=== PATIENT | female | born 1965 | race Caucasian/White ===

== ENCOUNTER 2018-10-06 08:40 | Inpatient (IN) | payer BC ==
[~2018-10-06] VITALS: Ht 157.5 cm; Wt 59.0 kg
[2018-10-06] MEDS ORDERED: POLYETHYLENE GLYCOL 17 GM (MIRALAX) PACK PO PRN (12:15)
[2018-10-06] MEDS ORDERED: CALCIUM CARBONATE 500 MG (TUMS) TAB.CHEW PO PRN (12:15)
[2018-10-06] MEDS ORDERED: ACETAMINOPHEN 500 MG TAB (TYLENOL) PO PRN (12:15)
[2018-10-06] MEDS ORDERED: LOPERAMIDE 2 MG (IMODIUM) CAP PO PRN (12:15)
[2018-10-06] MEDS ORDERED: DOCUSATE SODIUM 100 MG (COLACE) CAP PO PRN (12:15)
[2018-10-06] MEDS ORDERED: MELATONIN 3 MG TABLET PO PRN (12:15)
[2018-10-06 17:29] VITALS: BP 136/89
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
[2018-10-06] MEDS: POLYETHYLENE GLYCOL 17 GM (MIRALAX) PACK PO SCH (20:15)
[2018-10-06] MEDS: SENNA W/DOCUSATE (SENOKOT S) TABLET PO SCH (20:15)
[2018-10-06] MEDS: METHOCARBAMOL 750 MG (ROBAXIN) TAB PO SCH (20:15)
[2018-10-06] MEDS: diphenhydrAMINE 25 MG TAB (BENADRYL) PO PRN (21:21)
[2018-10-07] MEDS: oxyCODONE/APAP 5/325MG (PERCOCET 5) TABLET PO PRN ×3 (01:05→20:33)
[2018-10-07] MEDS: ONDANSETRON 4 MG (ZOFRAN) ORAL DISSOLVE TAB PO PRN ×2 (01:25→12:01)
[2018-10-07 05:08] VITALS: BP 125/82
[2018-10-07] MEDS ORDERED: FLU QUADRIvalent (5+ YOA) 2018-2019 (AFLURIA) 0.5 ML IM ONE (07:00)
--- NOTE | 2018-10-07 08:21 | Physical Therapy Progress Note ---
Therapy Progress Note Pt arrived 10/06/18 via EMS. PT/OT/ST eval to be completed 10/07/18. CHRIS PROCTOR PT Oct 07, 2018 08:21
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
[2018-10-07] MEDS: METHOCARBAMOL 750 MG (ROBAXIN) TAB PO SCH ×3 (09:22→20:32)
[2018-10-07] MEDS: SENNA W/DOCUSATE (SENOKOT S) TABLET PO SCH ×2 (09:22→20:32)
[2018-10-07] MEDS: ENOXAPARIN 40 MG/0.4 ML (LOVENOX) SYR SC SCH (09:23)
[2018-10-07] MEDS: LORATADINE (CLARITIN) 10 MG TAB PO SCH (09:23)
--- NOTE | 2018-10-07 10:40 | PM&R Progress Note ---
Subjective This was a face to face visit with the patient. Date Seen by Provider: Oct 07, 2018 Time Seen by Provider: 08:30 Subjective/Events-last exam Patient was seen in her room. Patient reports the pain is controlled Bowel regimen is maintained Eating and drinking well Very difficult to move about in a wheelchair with nonweightbearing on the left Review of Systems Gastrointestinal: Constipation Musculoskeletal: leg pain Objective Physician Exam Last Set of Vital Signs Vital Signs Date Time Temp Pulse Resp B/P (MAP) Pulse Ox O2 Delivery O2 Flow Rate FiO2 10/07/18 05:08 98.0 98 18 125/82 (96) 98 Room Air Capillary Refill : Less Than 3 Seconds I&O Intake and Output 10/07/18 00:00 Intake Total 300 ml Output Total 500 ml Balance -200 ml Intake Oral 300 ml Output Urine Total 500 ml Daily Weight Change Unsure General: Alert, Oriented X3, Cooperative, No Acute Distress HEENT: Atraumatic, PERRLA Neck: Supple, No JVD, No Thyromegaly, +2 Carotid Pulse No Bruit, No LAD Lungs: Clear to Auscultation, Normal Air Movement Heart: Regular Rate, Normal S1, Normal S2, No Murmurs Abdomen: Normal Bowel Sounds, Soft, No Tenderness, No Hepatosplenomegaly, No Masses Extremities: No Clubbing, No Cyanosis, No Edema, Normal Pulses, No Tenderness/ Swelling Skin: No Rashes, No Breakdown, No Significant Lesion Neuro: Other (left foot dressing and brace intact and same for right knee) Psych/Mental Status: Mental Status NL, Mood NL Current Funtional Status Continue therapies to help independent ADLs when discharged home Await for dressing changes per orthopedic surgery on Wednesday Maintain bowel regimen DVT prophylaxis Pain control Monitor closely Check labs in am Assessment/Plan Assessment and Plan Assessment: Left calcaneal fracture and non-weight bearing on left leg with right patellar fracture Smoker Brittle bones per patient Constipation Plan: Pain meds Lovenox for DVT px BM regimen Check labs in am (1) Left calcaneal fracture Qualifiers: Status: Acute (2) Brittle bone disease Status: Chronic (3) Patella fracture Qualifiers: Status: Acute (4) Constipation Qualifiers: Qualified Codes: K59.01 - Slow transit constipation Status: Acute Co-Morbidities that are continuing to impact the rehab process: (include details ) JOSEPH AKINS DO Oct 07, 2018 10:40
--- NOTE | 2018-10-07 10:50 | NUR ---
Pastoral care visit.
--- NOTE | 2018-10-07 12:57 | Occupational Therapy Eval ---
OT Evaluation-General/PLF Medical Diagnosis Admission Date Oct 06, 2018 at 17:30 Medical Diagnosis: L calcaneal fx, R patella fx Onset Date: Sep 29, 2018 Therapy Diagnosis Therapy Diagnosis: impaired self care skills Height/Weight Height (Feet): 5 Height (Inches): 2.00 Weight (Pounds): 137 Weight (Ounces): 5.0 Precautions Precautions/Isolations: Fall Prevention, Standard Precautions Safety Interventions: None Comments Right knee brace locked in extension Weight Bear Status Weight Bearing Restriction: Non Weight Bearing Location Restriction: L LE Referral Physician: Olga Medical History Pertinent Medical History: Arthritis, Smoking (Occassional) Additional Medical History back pain, irregular heart beat, osteoporosis, Current History Pt had fall resulting in right patellar fracture and left calcaneal fracture. Pt has right knee brace locked into extension. NWB left LE. Social History Home: Single Level Current Living Status: Significant Other Entry Into Home: Stairs With Railing Steps Into Home: 2 ADL-Prior Level of Function Therapy Code Descriptions/Definitions Functional [place] Measure: 0=Not Assessed/NA 4=Minimal Assistance 1=Total Assistance 5=Supervision or Setup 2=Maximal Assistance 6=Modified [place] 3=Moderate Assistance 7=Complete [place] Therapy Quality Codes: 6 Independent with activity with or without an assistive device 5 Patient requires set up or clean up by helper. Patient completes activity by themselves 4 Supervision or touching assist (CGA). [place] provide cues , steadying assist 3 The helper provides less than half the effort to complete the activity 2 The helper provides more than half the effort to complete the activity 1 Dependent. The helper does all the effort to complete an activity 7 Patient refused to complete or attempt activity 9 The patient did not perform the activity before the current illness or injury 88 Not attempted due to Medical conditions or safety concerns Functional Abilities and Goals: Independent: Patient completed the activities by him/herself, with or without an assistive device, with no assistance from a helper. Needed Some Help: Patient needed partial assistance from another person to complete activities. Dependent: A helper completed the activities for the patient. Unknown: Not Applicable: Self Care: Independent Functional Cognition: Independent DME/Equipment: Tub/Shower Occupation: Works in a school kitchen Drive Self: Yes OT Current Status Subjective Pt sitting in w/c, agrees to therapy. Pt reports 8.5/10 pain in right knee. Mental Status/Objective Patient Orientation: Person, Place, Situation Attachments: Knee Immobilizer Current Glasses/Contacts: Yes Hearing Aids: No Dentures/Partials: No Hand Dominance: Right Upper Extremity ROM grossly WFL Upper Extremity Coordination intact Upper Extremity Sensation intact per pt report ADL-Treatment ADL-Current Pt participated in UE assessment while seated in w/c. Pt agreed to sponge bath. Pt doffed shirt with SBA. Upper body bathing completed with set up. Pt required total assist to doff pants. Pt able to wash tanesha area and bilateral upper legs. Assist required to wash lower legs and buttocks. Pt required assist to thread bilateral LE into pant legs. Pt used grab bar, but was unable to come to full standing position. Total assist to pull pants up over hips. Dependent to doff/ don right sock. Pt reports pain with activity and requires rest breaks secondary to fatigue and pain. Pt sitting in w/c with needs met after session. Eating (FIM): 5 Eating (QC): 5 Grooming (FIM): 5 Bathing (FIM): 3 Shower/Bathe Self (QC): 3 Upper Body Dressing (FIM): 5 Upper Body Dressing (QC): 5 Lower Body Dressing (FIM): 1 Lower Body Dressing (QC): 1 On/Off Footwear (QC): 1 Toilet/Commode Transfer (FIM): 3 (Per PT report) Education OT Patient Education: Rehab process Teaching Recipient: Patient Teaching Methods: Discussion Response to Teaching: Verbalize Understanding OT Short Term Goals Short Term Goals Time Frame: Oct 14, 2018 Bathing(FIM): 4 Lower Body Dressing(FIM): 3 Toileting(FIM): 3 Toilet/Commode Transfer(FIM): 4 Additional Short Term Goals: 1-Demonstrate ADL Tasks, 2-Verbalize Understanding , 3-ImproveStrength/Hafsa 1=Demonstrate adherence to instructed precautions during ADL tasks. 2=Patient will verbalize/demonstrate understanding of assistive devices/ modifications for ADL. 3=Patient will improve strength/tolerance for activity to enable patient to perform ADL's. OT Music Researcher Goals Music Researcher Goals Time Frame: Oct 28, 2018 Eating (FIM): 7 Eating (QC): 6 Groomin Oral Hygiene (QC): 6 Bathing(FIM): 5 Shower/Bathe Self (QC): 4 Upper Body Dressing(FIM): 6 Upper Body Dressing (QC): 6 Lower Body Dressing(FIM): 5 Lower Body Dressing (QC): 4 On/Off Footwear (QC): 5 Toileting(FIM): 5 Toileting Hygiene (QC): 5 Toilet/Commode Transfer(FIM): 5 Toilet/Commode Transfer (QC): 5 Additional Goals: 1-Demonstrate ADL Tasks, 2-Verbalize Understanding, 3- ImproveStrength/Hafsa 1=Demonstrate adherence to instructed precautions during ADL tasks. 2=Patient will verbalize/demonstrate understanding of assistive devices/ modifications for ADL. 3=Patient will improve strength/tolerance for activity to enable patient to perform ADL's. OT Education/Plan Problem List/Assessment Assessment: Decreased Activ Tolerance, Decreased UE Strength, Dependent Transfers, Impaired Funct Balance, Impaired I ADL's, Impaired Self-Care Skills Pt admitted after acute hospitalization for left calcaneal fracture and right patellar fracture. Pt demonstrates impaired ADL functioning, mobility, strength , and activity tolerance. Pt to benefit from skilled OT intervention for ADL training, transfers, strengthening, adaptive equipment training, and home safety education to increase independence and allow safe discharge plan. Discharge Recommendations Plan/Recommendations: Continue POC Treatment Plan/Plan of Care Patient would benefit from OT for education, treatment and training to promote independence in ADL's, mobility, safety and/or upper extremity function for ADL' s. Treatment Duration: Oct 28, 2018 Frequency: At least 5 of 7 days/Wk (IRF) Estimated Hrs Per Day: 1.5 hours per day Rehab Potential: Guarded Time/GCodes Start Time: 09:00 Stop Time: 10:00 Total Time Billed (hr/min): 60 Billed Treatment Time 1 visit, EVM(15minutes), ADLx3(45minutes) NIC VERAS OT Oct 07, 2018 12:57
--- NOTE | 2018-10-07 13:11 | NUR ---
Initial Assessment Visited with patient regarding the inpatient rehab program. The patient reports she currently lives with her boyfriend and his family in [place], [place]. She reports there is a step onto the porch and then a step into the house. She reports she has access to a wheelchair if needed. She utilizes [facility] in [place] for prescriptions. 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 She states she will try her hardest and appears motivated and willing to participate with therapies. Her discharge goal is to return home with her boyfriend and his family.
[2018-10-07] MEDS ORDERED: DIPH25TA65 PO (13:34)
[2018-10-07] MEDS ORDERED: OXYC1TAB87 PO (13:34)
--- NOTE | 2018-10-07 13:35 | NUR ---
UPDATED THE MED REC TO THE LIST OF MEDICATIONS THE PATIENT WAS TAKING UPON ADMISSION TO USING THE DISCHARGE PAPERWORK FROM . NOTE THE FOLLOWING CHANGES WERE MADE WHEN THE PATIENT DISCHARGED TO [facility]IA [facility] [place] THAT ARE NOT CURRENTLY REFLECTED ON THE HOME MED REC: START TAKING: LOVENOX 40MG 0.4ML SUBQ DAILY X 14 DAYS LORATADINE 10MG DAILY METHOCARBAMOL 750MG TID MIRALAX 17GM DAILY SENNA 8.6MG BID CHANGE HOW YOU TAKE: PERCOCET 5-325MG INCREASED TO 1-2 TABS Q 4-6H PRN (PREVIOUSLY FILLED 1 Q4H PRN) I CALLED [facility] IN [place] TO VERIFY THEY HAVE NOT FILLED ANY OTHER MEDICATIONS. SHE LAST FILLED PERCOCET 5-325 #25 ON 08-16-18. THEY HAVE NOT FILLED ANY OTHER MEDICATION FOR HER. I PUT THE BENADRYL OTC PRN ON THE MED REC THAT WAS CONTINUED UPON DISCHARGE FROM .
--- NOTE | 2018-10-07 14:00 | NUR ---
DISCUSSED WITH BM WITH PATIENT. SHE AGREED THAT SHE HAS NOT HAD BM SINCE 10/03/18 AND THAT SHE IS PASSING GAS. SHE STATES THAT IT IS NOT UNUSUAL FOR HER TO GO "A FEW DAYS" BETWEEN BMs AND AT THIS POINT SHE IS NOT CONCERNED. INFORMED HER THAT SHE HAS PRN STOOL SOFTENERS THAT SHE CAN REQUEST IN ADDITION TO HER SCHEDULED STOOL SOFTENERS. WILL CONTINUE TO MONITOR.
--- NOTE | 2018-10-07 14:17 | ST Cognitive Linguistic Eval ---
Speech Evaluation-General Medical Diagnosis L calcaneal fx, R patella fx Onset Date: Sep 29, 2018 Therapy Diagnosis Therapy Diagnosis: Cognitive-communication Precautions Precautions/Isolations: Fall Prevention, Standard Precautions Medical History Pertinent Medical History: Arthritis, Smoking (Occassional) Reviewed History: Yes Social History Current Living Status: Significant Other Speech PLF-Current Status Prior Level of Function Patient lived at home with her and was independent for her daily needs. Patient had just returned to work s/p recovery of a broken wrist. Subjective Patient was pleasant and attentive during the evaluation process. Language Eval: Auditory Comprehends Simple Yes/No Ques: Functional Indent/Objects Multiple Francis: Functional Ident/Pics in Multiple Francis: Functional Follows 1-Step Commands: Functional Follows Complex Directions: Functional Follows General Conversations: Functional Language Eval: Verbal Language Completes Spontaneous Greeting: Functional Produces Auto, Serial Info: Functional Imitates Simple Words/Phrases: Functional Word Finding: Functional Requests Basic Needs: Functional States Basic Personal Info: Functional Expresses Complex Ideas: Functional Objective Cognitive Domain Attention: WNL Memory: WNL Problem Solving: Functional Executive Functions: [facility] Objective Formal/Standardized Tests [facility] Cognitive/Communication Results Memory: Immediate 3/3, Delayed 3/3, Orientation: 5/5, Problem Solving: Simple 5/ 5, Complex 4/5, Auditory Processin/5 Oral Motor/Speech Production Within Functional Limits Impression Patient is a pleasant 52 year old female. Patient is a good historian of her recent fall and previous one which resulted in a broken wrist, Patient did become emotional when recalling her son's recent illnesses. Patient meets all normal range for cognitive-communication testing. Communication/Social Cognition Comprehension: 7 Expression: 7 Social Interaction: 7 Problem Solvin Memory: 7 Speech Patient Assess Expression of Ideas/Wants: Expression (4) Understanding Verbal Content: Understands (4) Brief Interview-Mental Status: Yes Repetition of Three Words: Three (3) Temporal Orientation: Year: Correct (3) Temporal Orientation: Month: Accurate within 5 days(2) Temporal Orientation: Day: Correct (1) Recall : Wear to say "Sock": Yes, no cue required (2) Recall : Color: Yes, no cue required (2) Recall : Bed: Yes, no cue required (2) Memory/Recall Ability: Current season, That he or she is in a hsp/hsp unit Speech-Plan Patient/Family Goals Patient/Family Goals: Patient plans to return home post rehab with her family. Treatment Plan Speech Therapy Treatment Plan: Discontinue ST, Goals Met Patient does not require skilled ST services at this time. Treatment Duration: Oct 07, 2018 Frequency: 1 time per week Estimated Hrs Per Day: .5 hour per day Rehab Potential: Guarded Barriers to Learning: Patient has a lot of pain. Pt/Family Agrees to Plan: Yes Safety Risks/Education Teaching Recipient: Patient Teaching Methods: Discussion Response to Teaching: Verbalize Understanding Education Topics Provided: Safety within her room. Time Speech Therapy Time In: 10:00 Speech Therapy Time Out: 10:15 Total Billed Time: 15 Billed Treatment Time 1, SPSNDCOMP IRMA Salcedo Oct 07, 2018 14:17
--- NOTE | 2018-10-07 14:59 | Therapy Group Daily Note ---
Therapy Daily Group Note Patient Education Topic Other List Below (memeory) Exercises LE Seated Exercise, UE Exercise Other/Notes Pt participated in group therapy with 4 to 1 ratio. Goals of session: Pt will verbalize understanding of memory strategies (met). Lead one UE or LE seated exercise during group therapy (met). Pt transported via w/c to [facility] for OT/PT group. Group consisted on introductions (name, place living, what would you name a cheetah), socialization , pt led UE/LE seated exercises, memory education/strategies and memory activity. Pt introduced self appropriately and actively listened to peers. Pt acknowledged understanding of memory strategies/education by verbalizing personal strategies. Pt was able to lead one exercise without difficulty then complete rest of exercises. During memory activity pt was able to match pictures on turn. Pt will benefit from group by increasing short term memory and use strategies during daily functional tasks. Pt will be able to complete UE/LE seated exercises after discharge. After group, pt transported via w/c back to room and laid in bed. Call light/phone in reach. All needs met in room. Start Time: 13:00 Stop Time: 14:15 Total Billed Treatment Time: 75 Total Billed Treatment 1-GRP CHRIS TRINIDAD Oct 07, 2018 14:59
--- NOTE | 2018-10-07 16:30 | NUR ---
DR. AKINS TO FLOOR AND DISCUSSED PATIENT'S DRESSINGS ON BILAT LOWER EXTREM. [facility] TO BE CONTACTED ON WEDNESDAY FOR INSTRUCTION.
[2018-10-07] MEDS: diphenhydrAMINE 25 MG TAB (BENADRYL) PO PRN (17:33)
[2018-10-07 18:42] VITALS: BP 125/79
[2018-10-07] MEDS: POLYETHYLENE GLYCOL 17 GM (MIRALAX) PACK PO SCH (20:32)
[2018-10-08 05:57] LABS: BASOPHILS % (AUTO) 1 % (0-10); EOSINOPHILS # (AUTO) 0.2 10^3/uL (0.0-0.3); EOSINOPHILS % (AUTO) 3 % (0-10); HEMATOCRIT 37 % (35-52); HEMOGLOBIN 11.7 G/DL (11.5-16.0); LYMPHOCYTES # (AUTO) 1.6 X 10^3 (1.0-4.0); LYMPHOCYTES % (AUTO) 29 % (12-44); MEAN CORPUSCULAR HEMOGLOBIN 31 PG (25-34); MEAN CORPUSCULAR HGB CONC 32 G/DL (32-36); MEAN CORPUSCULAR VOLUME 95 FL (80-99); MEAN PLATELET VOLUME 11.8 FL (7.4-10.4); MONOCYTES # (AUTO) 0.9 X 10^3 (0.0-1.0); MONOCYTES % (AUTO) 15 % (0-12); NEUTROPHILS % (AUTO) 53 % (42-75); PLATELET COUNT 273 10^3/uL (130-400); RED CELL DISTRIBUTION WIDTH 12.9 % (10.0-14.5); WHITE BLOOD COUNT 5.7 10^3/uL (4.3-11.0)
[2018-10-08 06:00] VITALS: BP 126/80
[2018-10-08 06:12] LABS: ALANINE AMINOTRANSFERASE < 6 U/L (0-55); ALBUMIN 3.4 GM/DL (3.2-4.5); ALKALINE PHOSPHATASE 64 U/L (40-136); BILIRUBIN,TOTAL 0.4 MG/DL (0.1-1.0); BUN/CREATININE RATIO 12; CALCIUM 9.3 MG/DL (8.5-10.1); CARBON DIOXIDE 28 MMOL/L (21-32); CHLORIDE 103 MMOL/L (98-107); CREATININE SERUM 0.86 MG/DL (0.60-1.30); GFR ESTIMATED > 60; GLUCOSE 96 MG/DL (70-105); POTASSIUM 4.1 MMOL/L (3.6-5.0); SODIUM 140 MMOL/L (135-145); TOTAL PROTEIN 6.6 GM/DL (6.4-8.2)
--- NOTE | 2018-10-08 06:58 | Individualized Plan of Care ---
Individualized Plan of Care Rehab Nursing IPOC Order Admission Date Oct 06, 2018 at 17:30 Current Orders Orders Admission Order(Inpt,Obs,Sdc) (10/06/18 12:12) Weight Reducing Technician-Inpt Rehab Con (10/06/18 12:12) Rehab Nursing Orders-Ipoc (10/06/18 12:12) Physical Therapy Rehab Orders (10/06/18 12:12) Occupational Therapy Rehab Ord (10/06/18 12:12) Speech Therapy Rehab Orders (10/06/18 12:12) Intake & Output 06,14,22 (10/06/18 12:12) Daily Weight 06 (10/06/18 12:12) Weekly Weight (Lbs) WEEK (10/06/18 12:12) Rehab-Intensity Of Therapy (10/06/18 12:12) Code/Resuscitation (10/06/18 12:12) Initiate Admission Nursing Pro .admission (10/06/18 12:12) Acetaminophen Tablet (Tylenol Tablet) (10/06/18 12:15) Alprazolam Tablet (Xanax Tablet) (10/06/18 12:15) Calcium Carbonate Chew Tablet (Antacid C (10/06/18 12:15) Diphenhydramine Tablet (Benadryl Tablet) (10/06/18 12:15) Docusate Sodium Capsule (Colace Capsule) (10/06/18 12:15) Hydrocodone/Apap 5/325 Tablet (Lortab 5 (10/06/18 12:15) Loperamide Capsule (Imodium Capsule) (10/06/18 12:15) Melatonin Tablet (Melatonin Tablet) (10/06/18 12:15) Polyethylene Glycol Powder Pkt (Miralax (10/06/18 12:15) Ondansetron Oral Dissolve Tab (Zofran (10/06/18 12:15) Admission Arrival Bed Request (10/06/18 17:30) General/Regular (10/06/18 Dinner) Ambulate 08,12,20 (10/06/18 18:44) Sequential Compression Device 08,20 (10/06/18 18:44) Dvt/Vte Risk - Notifiy Physici 08 (10/06/18 18:44) Request Ot Evaluate & Treat (10/06/18 18:51) Loratadine Tablet (Claritin Tablet) (10/07/18 09:00) Methocarbamol Tablet (Robaxin Tablet) (10/06/18 21:00) Polyethylene Glycol Powder Pkt (Miralax (10/06/18 21:00) Senna S Tablet (Senokot S Tablet) (10/06/18 21:00) Enoxaparin Injection (Lovenox Injection) (10/07/18 08:00) Oxycodone/Apap 5/325mg Tablet (Percocet (10/06/18 20:00) Weight Bearing Status (10/06/18 20:24) Influenza Quad (5+Yoa) 2018- (Afluria (10/07/18 07:00) Patient Visit (10/07/18 ) Pt Eval Moderate Complexity (10/07/18 ) Functional Activities, Ea 15 (10/07/18 ) Exercise Therap, Ea 15 Min (10/07/18 ) Patient Visit (10/07/18 ) Speech Sound Lang Comp (10/07/18 ) Cbc With Automated Diff (10/08/18 06:00) Comprehensive Metabolic Panel (10/08/18 06:00) Rehab Nursing Orders: Ongoing Assess. of Function Status, Disease Management & Educaiton, DVT Prophylaxis, Fall Prevention, Patient/Family Support, Safety Management, Weight Bearing Precaution Intensity of Therapy to be met Patient to be seen: Min.3h per day/5 of 7d PT IPOC Problem List: Activity Tolerance, Functional Strength, Safety, Balance, Gait, Transfer, Bed Mobility, ROM Treatment Plan: Continue Plan of Care Bed Mobility, Concurrent Therapy, Education, Functional Activity Hafsa, Functional Strength, Group Therapy, Gait, Safety, Therapeutic Exercise, Transfers Treatment Duration: Oct 28, 2018 Frequency: At least 5 of 7 days/Wk (IRF) Estimated Hrs Per Day: 1.5 hours per day OT IPOC Problems: Decreased Activ Tolerance, Decreased UE Strength, Dependent Transfers , Impaired Funct Balance, Impaired I ADL's, Impaired Self-Care Skills OT Treatment, Training and Edu: Yes OT Problems Pt admitted after acute hospitalization for left calcaneal fracture and right patellar fracture. Pt demonstrates impaired ADL functioning, mobility, strength , and activity tolerance. Pt to benefit from skilled OT intervention for ADL training, transfers, strengthening, adaptive equipment training, and home safety education to increase independence and allow safe discharge plan. Plan of Care: ADL Retraining Treatment Duration: Oct 28, 2018 Frequency: At least 5 of 7 days/Wk (IRF) Estimated Hrs Per Day: 1.[address] IPOC Speech Therapy Treatment Plan: Discontinue ST, Goals Met Treatment Duration: Oct 07, 2018 Frequency: 1 time per week Estimated Hrs Per Day: .5 hour per day Weight Reducing Technician/Case Mgmt Weight Reducing Technician/Case Managemen: Discharge Planning Dietitian/Ratoprinter Dietitian/Ratoprinter to monitor nutritional status and make changes and/or recommendations as needed and work with speech pathology on dietary upgrades as the occur. Physician IPOC Medical Issues being managed closely and that require the 24 hour availability of a physician: High risk for falls and weakened bones place her at risk for additional fractures DVT Px Medical Issues: Bowel/Bladder Function, DVT Prophylaxis, Falls Precautions, Fluid/Electrolyte/Nutrition Balance Brief Synthesis of Preadmission Screen, Post-Admission Evaluation, and Therapy Evaluations: PT to provide intensive ROM exercises OT for ADL independence Medical Prognosis: Good Anticipated Length of Stay: 7 days JOSEPH AKINS DO Oct 08, 2018 06:58
[2018-10-08] MEDS: oxyCODONE/APAP 5/325MG (PERCOCET 5) TABLET PO PRN ×3 (07:22→21:50)
[2018-10-08] MEDS: METHOCARBAMOL 750 MG (ROBAXIN) TAB PO SCH ×3 (09:11→21:10)
[2018-10-08] MEDS: LORATADINE (CLARITIN) 10 MG TAB PO SCH (09:11)
[2018-10-08] MEDS: SENNA W/DOCUSATE (SENOKOT S) TABLET PO SCH ×2 (09:11→21:10)
[2018-10-08] MEDS: ENOXAPARIN 40 MG/0.4 ML (LOVENOX) SYR SC SCH (09:12)
--- NOTE | 2018-10-08 11:51 | Physical Therapy Daily Note ---
PT Daily Note-Current Subjective Pt requesting to work on her therapy as she doesn't want to sit around all day. Transfers Therapy Code Descriptions/Definitions Functional [place] Measure: 0=Not Assessed/NA 4=Minimal Assistance 1=Total Assistance 5=Supervision or Setup 2=Maximal Assistance 6=Modified [place] 3=Moderate Assistance 7=Complete [place] Therapy Quality Codes: 6 Independent with activity with or without an assistive device 5 Patient requires set up or clean up by helper. Patient completes activity by themselves 4 Supervision or touching assist (CGA). [place] provide cues , steadying assist 3 The helper provides less than half the effort to complete the activity 2 The helper provides more than half the effort to complete the activity 1 Dependent. The helper does all the effort to complete an activity 7 Patient refused to complete or attempt activity 9 The patient did not perform the activity before the current illness or injury 88 Not attempted due to Medical conditions or safety concerns Transfers (B, C, W/C) (FIM): 3 Scootin Sliding transfer bed to and back, bed to high low mat and back. Both transfers were made without a slide board. Assist in position and lifting the right leg. Weight Bearing Right Lower Extremity: Right Weight Bearing/Tolerated Left Lower Extremity: Left Non Weight Bearing Gait Training Standing exercise in parallel bars. Max A sit to stand Exercises Supine Ex: Bridging, Quad Set, Glut sets, Heel Slides, Short Arc Quads, Straight leg raise Supine Reps: 15 Exercises performed (B) as allowed per restriction from orthopedic injuries. Assessment Current Status: Good Progress Pt is making improvement with transfers. The right leg remains weak, limiting slide transfers and bed mobility. PT Short Term Goals Short Term Goals Time Frame: Oct 14, 2018 Gait (FIM): 1 Distance (FIM): 1=up to 49 ft Gait Distance Comment: 25' Gait Level of Assist: 4 Gait Assistive Device: FWW Wheelchair (FIM): 6 Wheelchair distance (FIM): 3=150 ft Wheelchair Distance: 300' Wheelchair Level of Assist: 6 Stairs (FIM): 2 # of Steps: 2 Stairs Level of Assist: 4 PT Group Home Goals Group Home Goals PT Retoucher Goals Time Frame: Oct 29, 2018 Transfers (B,C,W/C) (FIM): 5 Sit to Lying (QC): 5 Lying-Sitting on Side/Bed(QC): 5 Sit to Stand (QC): 5 Rollin Roll Left to Right (QC): 5 Chair/[id number] Xfer(QC): 5 Car Transfer (QC): 5 Does the Patient Walk: Yes Gait (FIM): 1 Gait distance (FIM): 1=up to 49 ft Distance: 30' Walk 10 feet (QC): 5 Walk 10ft-Uneven Surface(QC): 5 Walk 50ft with 2 Turns (QC): 88 Walk 150 ft (QC): 88 Gait Level of Assist: 5 Gait Assistive Device: FWW Wheelchair (FIM): 5 Wheelchair distance (FIM): 3=150 ft Distance: 150' Wheelchair Level of Assist: 5 Wheel 50 feet with 2 turns (QC: 5 PT Plan Treatment/Plan Treatment Plan: Continue Plan of Care Treatment Plan: Bed Mobility, Concurrent Therapy, Education, Functional Activity Hafsa, Functional Strength, Group Therapy, Gait, Safety, Therapeutic Exercise, Transfers Treatment Duration: Oct 28, 2018 Frequency: At least 5 of 7 days/Wk (IRF) Estimated Hrs Per Day: 1.5 hours per day Patient and/or Family Agrees t: Yes Time/GCodes Time In: 935 Time Out: 1000 Total Billed Treatment Time: 25 Total Billed Treatment visit, ex 15, FA 10 min ADAIR POWERS PT Oct 08, 2018 11:51
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
[2018-10-08 16:38] VITALS: BP 113/71
[2018-10-08] MEDS: POLYETHYLENE GLYCOL 17 GM (MIRALAX) PACK PO SCH (21:10)
[2018-10-09 05:39] VITALS: BP 137/93
[2018-10-09] MEDS: SENNA W/DOCUSATE (SENOKOT S) TABLET PO SCH ×2 (08:00→20:23)
[2018-10-09] MEDS: LORATADINE (CLARITIN) 10 MG TAB PO SCH (08:01)
[2018-10-09] MEDS: ENOXAPARIN 40 MG/0.4 ML (LOVENOX) SYR SC SCH (08:01)
[2018-10-09] MEDS: METHOCARBAMOL 750 MG (ROBAXIN) TAB PO SCH ×3 (08:01→20:23)
[2018-10-09] MEDS: oxyCODONE/APAP 5/325MG (PERCOCET 5) TABLET PO PRN (08:04)
[2018-10-09] MEDS: ONDANSETRON 4 MG (ZOFRAN) ORAL DISSOLVE TAB PO PRN ×3 (08:04→21:26)
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
[2018-10-09 17:04] VITALS: BP 122/80
[2018-10-09] MEDS: POLYETHYLENE GLYCOL 17 GM (MIRALAX) PACK PO SCH (20:23)
[2018-10-10] MEDS: oxyCODONE/APAP 5/325MG (PERCOCET 5) TABLET PO PRN ×3 (04:44→18:43)
[2018-10-10 05:08] VITALS: BP 141/85
[2018-10-10] MEDS: METHOCARBAMOL 750 MG (ROBAXIN) TAB PO SCH ×3 (08:35→18:39)
[2018-10-10] MEDS: SENNA W/DOCUSATE (SENOKOT S) TABLET PO SCH ×2 (08:35→21:32)
[2018-10-10] MEDS: ENOXAPARIN 40 MG/0.4 ML (LOVENOX) SYR SC SCH (08:35)
[2018-10-10] MEDS: LORATADINE (CLARITIN) 10 MG TAB PO SCH (08:35)
--- NOTE | 2018-10-10 08:57 | PM&R Progress Note ---
Subjective This was a face to face visit with the patient. Date Seen by Provider: Oct 10, 2018 Time Seen by Provider: 08:30 Subjective/Events-last exam Patient was seen in her room Orthopedic surgery at will be contacted tomorrow since they are in vacation day today since it's a national holiday The knee dressing change recommendations and the left foot cast appears to be slightly loose Had a small bowel movement Pain is controlled Using incentive spirometer Doesn't really like to take the Lovenox injections but she is extremely high risk due to immobility Review of Systems Musculoskeletal: leg pain, foot pain Objective Physician Exam Last Set of Vital Signs Vital Signs Date Time Temp Pulse Resp B/P (MAP) Pulse Ox O2 Delivery O2 Flow Rate FiO2 10/10/18 05:08 98.0 89 18 141/85 (103) 96 Room Air Capillary Refill : Less Than 3 Seconds I&O Intake and Output 10/10/18 00:00 Intake Total 1840 ml Balance 1840 ml Intake Oral 1840 ml # Voids 5 # Bowel Movements 1 General: Alert, Oriented X3, Cooperative, No Acute Distress HEENT: Atraumatic, PERRLA Neck: Supple, No JVD, No Thyromegaly, +2 Carotid Pulse No Bruit, No LAD Lungs: Clear to Auscultation, Normal Air Movement Heart: Regular Rate, Normal S1, Normal S2, No Murmurs Abdomen: Normal Bowel Sounds, Soft, No Tenderness, No Hepatosplenomegaly, No Masses Extremities: No Clubbing, No Cyanosis, No Edema, Normal Pulses, No Tenderness/ Swelling Skin: No Rashes, No Breakdown, No Significant Lesion Neuro: Other (left foot dressing and brace intact and same for right knee) Psych/Mental Status: Mental Status NL, Mood NL Results Lab Data Laboratory Tests 10/08/18 05:43: White Blood Count 5.7, Red Blood Count 3.84L, Hemoglobin 11.7, Hematocrit 37, Mean Corpuscular Volume 95, Mean Corpuscular Hemoglobin 31, Mean Corpuscular Hemoglobin Concent 32, Red Cell Distribution Width 12.9, Platelet Count 273, Mean Platelet Volume 11.8H, Neutrophils (%) (Auto) 53, Lymphocytes (%) (Auto) 29 , Monocytes (%) (Auto) 15H, Eosinophils (%) (Auto) 3, Basophils (%) (Auto) 1, Neutrophils # (Auto) 3.0, Lymphocytes # (Auto) 1.6, Monocytes # (Auto) 0.9, Eosinophils # (Auto) 0.2, Basophils # (Auto) 0.0, Sodium Level 140, Potassium Level 4.1, Chloride Level 103, Carbon Dioxide Level 28, Anion Gap 9, Blood Urea Nitrogen 10, Creatinine 0.86, Estimat Glomerular Filtration Rate > 60, BUN/ Creatinine Ratio 12, Glucose Level 96, Calcium Level 9.3, Corrected Calcium 9.8 , Total Bilirubin 0.4, Aspartate Amino Transf (AST/SGOT) 14, Alanine Aminotransferase (ALT/SGPT) < 6, Alkaline Phosphatase 64, Total Protein 6.6, Albumin 3.4 Current Funtional Status Continue bowel regimen Continue incentive spirometer Continue therapies Reach out to orthopedic surgery at for dressing changes recommendations and left lower extremity cast that is loose Assessment/Plan Assessment and Plan (1) Left calcaneal fracture Qualifiers: Status: Acute (2) Brittle bone disease Status: Chronic (3) Patella fracture Qualifiers: Status: Acute (4) Constipation Qualifiers: Qualified Codes: K59.01 - Slow transit constipation Status: Acute (5) DVT prophylaxis Status: Acute Co-Morbidities that are continuing to impact the rehab process: (include details ) JOSEPH AKINS DO Oct 10, 2018 08:57
--- NOTE | 2018-10-10 10:50 | NUR ---
Pastoral Care Visit.
[2018-10-10] MEDS: ONDANSETRON 4 MG (ZOFRAN) ORAL DISSOLVE TAB PO PRN (11:18)
[2018-10-10] MEDS: PANTOPRAZOLE 40 MG (PROTONIX) TAB PO SCH (11:38)
--- NOTE | 2018-10-10 11:38 | Physical Therapy Daily Note ---
PT Daily Note-Current Subjective Patient in wheelchair pre tx, agrees to PT, has pain of 4/10 in right knee. Appearance Patient in wheelchair post tx with nurse call, phone, tray, all needs met. Mental Status Patient Orientation: Person, Place, Situation, Normal For Age leg brace Transfers Therapy Code Descriptions/Definitions Functional [place] Measure: 0=Not Assessed/NA 4=Minimal Assistance 1=Total Assistance 5=Supervision or Setup 2=Maximal Assistance 6=Modified [place] 3=Moderate Assistance 7=Complete [place] Therapy Quality Codes: 6 Independent with activity with or without an assistive device 5 Patient requires set up or clean up by helper. Patient completes activity by themselves 4 Supervision or touching assist (CGA). [place] provide cues , steadying assist 3 The helper provides less than half the effort to complete the activity 2 The helper provides more than half the effort to complete the activity 1 Dependent. The helper does all the effort to complete an activity 7 Patient refused to complete or attempt activity 9 The patient did not perform the activity before the current illness or injury 88 Not attempted due to Medical conditions or safety concerns Transfers (B, C, W/C) (FIM): 4 Scootin Rollin Supine to/from Sit: 4 Sit to/from Stand: 4 Bed to/from Chair: 4 Supine <-> sit min assist, sit <-> stand min assist, sliding transfer (without sliding board) CGA. Patient stood in the parallel bars, maintaining weight bearing status for a few minutes. Weight Bearing Right Lower Extremity: Right Weight Bearing/Tolerated Left Lower Extremity: Left Non Weight Bearing Gait Training Gait (FIM): 1 Distance: 6' Gait Level of Assist: 4 Gait Persons Needed: 1 Gait Assistive Device: Parallel Bars Patient was able to ambulate forward and back 3' each way with CGA in the parallel bars. She was able to maintain her weight bearing status on the left leg. Wheelchair Training Does the Pt Use a Wheelchair?: Yes Wheelchair (FIM): 5 Distance: 150'x2 Wheelchair Level of Assist: 5 Type of Wheelchair: Manual Exercises Supine Ex: Ankle pumps (RLE), Quad Set, Glut sets, Heel Slides (LLE), Short Arc Quads (LLE for 5 min), Straight leg raise Supine Reps: 15 Treatments bed mobility and transfers, ambulation, functional strengthening and ROM Assessment Current Status: Fair Progress improved ambulation and transfers. Patient needs extra time for all functional mobility, she moves very slowly due to pain. PT Short Term Goals Short Term Goals Time Frame: Oct 14, 2018 Gait (FIM): 1 Distance (FIM): 1=up to 49 ft Gait Distance Comment: 25' Gait Level of Assist: 4 Gait Assistive Device: FWW Wheelchair (FIM): 6 Wheelchair distance (FIM): 3=150 ft Wheelchair Distance: 300' Wheelchair Level of Assist: 6 Stairs (FIM): 2 # of Steps: 2 Stairs Level of Assist: 4 PT Prison Goals Prison Goals PT Sole Cementer Goals Time Frame: Oct 29, 2018 Transfers (B,C,W/C) (FIM): 5 Sit to Lying (QC): 5 Lying-Sitting on Side/Bed(QC): 5 Sit to Stand (QC): 5 Rollin Roll Left to Right (QC): 5 Chair/[id number] Xfer(QC): 5 Car Transfer (QC): 5 Does the Patient Walk: Yes Gait (FIM): 1 Gait distance (FIM): 1=up to 49 ft Distance: 30' Walk 10 feet (QC): 5 Walk 10ft-Uneven Surface(QC): 5 Walk 50ft with 2 Turns (QC): 88 Walk 150 ft (QC): 88 Gait Level of Assist: 5 Gait Assistive Device: FWW Wheelchair (FIM): 5 Wheelchair distance (FIM): 3=150 ft Distance: 150' Wheelchair Level of Assist: 5 Wheel 50 feet with 2 turns (QC: 5 PT Plan Problem List Problem List: Activity Tolerance, Functional Strength, Safety, Balance, Gait, Transfer, Bed Mobility, ROM Treatment/Plan Treatment Plan: Continue Plan of Care Treatment Plan: Bed Mobility, Concurrent Therapy, Education, Functional Activity Hafsa, Functional Strength, Group Therapy, Gait, Safety, Therapeutic Exercise, Transfers Treatment Duration: Oct 28, 2018 Frequency: At least 5 of 7 days/Wk (IRF) Estimated Hrs Per Day: 1.5 hours per day Patient and/or Family Agrees t: Yes Safety Risks/Education Patient Education: Gait Training, Transfer Techniques, Correct Positioning, W/ C Management, Safety Issues Teaching Recipient: Patient Teaching Methods: Demonstration, Discussion Response to Teaching: Reinforcement Needed Time/GCodes Time In: 1000 Time Out: 1045 Total Billed Treatment Time: 45 Total Billed Treatment 1 visit [address] 10' [facility] [place] 15' EX 20' SHERON WALL PT Oct 10, 2018 11:38
--- NOTE | 2018-10-10 12:44 | Occupational Ther Daily Note ---
OT Current Status-Daily Note Subjective Pt. does not report level of pain, but does grimace with movement. Appearance Pt. is very anxious throughout the treatment. Very guarded with bilateral LE. Mental Status/Objective Patient Orientation: Person, Place Therapy Code Descriptions/Definitions Functional [place] Measure: 0=Not Assessed/NA 4=Minimal Assistance 1=Total Assistance 5=Supervision or Setup 2=Maximal Assistance 6=Modified [place] 3=Moderate Assistance 7=Complete [place] ADL-Treatment Therapy Code Descriptions/Definitions Functional [place] Measure: 0=Not Assessed/NA 4=Minimal Assistance 1=Total Assistance 5=Supervision or Setup 2=Maximal Assistance 6=Modified [place] 3=Moderate Assistance 7=Complete [place] Therapy Quality Codes: 6 Independent with activity with or without an assistive device 5 Patient requires set up or clean up by helper. Patient completes activity by themselves 4 Supervision or touching assist (CGA). [place] provide cues , steadying assist 3 The helper provides less than half the effort to complete the activity 2 The helper provides more than half the effort to complete the activity 1 Dependent. The helper does all the effort to complete an activity 7 Patient refused to complete or attempt activity 9 The patient did not perform the activity before the current illness or injury 88 Not attempted due to Medical conditions or safety concerns Grooming (FIM): 5 (Pt. is able to brush her own hair.) Bathing (FIM): 4 (Pt. requires assistance to wash rear tanesha area while seated on shower chair.) Shower/Bathe Self (QC): 4 Upper Body (FIM): 5 Upper Body Dressing (QC): 2 (Pt. requires max assist to don right sock, underwear, and pants due to knee brace as well as time constraints.) Lower Body Dressing (FIM): 2 (See above.) Lower Body Dressing (QC): 2 On/Off Footwear (QC): 2 Transfers (B, C, W/C) (FIM): 2 (Mod assist for supine-sit and max assist for sit-stand and pivot to chair.) Shower Transfer(FIM): 1 (Via shower chair.) Education OT Patient Education: Correct positioning, Modified ADL techniques, Progress toward Goal/Update tx plan, Purpose of tx/functional activities, Reviewed precautions, Rehab process, Transfer techniques Teaching Recipient: Patient Teaching Methods: Demonstration, Discussion Response to Teaching: Verbalize Understanding, Return Demonstration OT Short Term Goals Short Term Goals Time Frame: Oct 14, 2018 Bathing(FIM): 4 Lower Body Dressing(FIM): 3 Toileting(FIM): 3 Toilet/Commode Transfer(FIM): 4 Additional Short Term Goals: 1-Demonstrate ADL Tasks, 2-Verbalize Understanding , 3-ImproveStrength/[place]af[place] 1=Demonstrate adherence to instructed precautions during ADL tasks. 2=Patient will verbalize/demonstrate understanding of assistive devices/ modifications for ADL. 3=Patient will improve strength/tolerance for activity to enable patient to perform ADL's. OT Correction Goals Correction Goals Time Frame: Oct 28, 2018 Eating (FIM): 7 Eating (QC): 6 Groomin Oral Hygiene (QC): 6 Bathing(FIM): 5 Shower/Bathe Self (QC): 4 Upper Body Dressing(FIM): 6 Upper Body Dressing (QC): 6 Lower Body Dressing(FIM): 5 Lower Body Dressing (QC): 4 On/Off Footwear (QC): 5 Toileting(FIM): 5 Toileting Hygiene (QC): 5 Toilet/Commode Transfer(FIM): 5 Toilet/Commode Transfer (QC): 5 Additional Goals: 1-Demonstrate ADL Tasks, 2-Verbalize Understanding, 3- ImproveStrength/Hafsa 1=Demonstrate adherence to instructed precautions during ADL tasks. 2=Patient will verbalize/demonstrate understanding of assistive devices/ modifications for ADL. 3=Patient will improve strength/tolerance for activity to enable patient to perform ADL's. OT Education/Plan Problem List/Assessment Assessment: Decreased Activ Tolerance, Dependent Transfers, Impaired Bed Mobility, Impaired Funct Balance, Impaired I ADL's, Impaired Self-Care Skills Pt admitted after acute hospitalization for left calcaneal fracture and right patellar fracture. Pt demonstrates impaired ADL functioning, mobility, strength , and activity tolerance. Pt to benefit from skilled OT intervention for ADL training, transfers, strengthening, adaptive equipment training, and home safety education to increase independence and allow safe discharge plan. Discharge Recommendations Plan/Recommendations: Continue POC Therapy D/C Recommendations: Home w/ Family Support, Occupational Therapy Home Care, Scheduled Assistance Equpiment Recommendations-D/C: Hip Kit Treatment Plan/Plan of Care Treatment,Training & Education: Yes Patient would benefit from OT for education, treatment and training to promote independence in ADL's, mobility, safety and/or upper extremity function for ADL' s. Plan of Care: ADL Retraining, Functional Mobility, Group Exercise/Act as Ind, UE Funct Exercise/Act Treatment Duration: Oct 28, 2018 Frequency: At least 5 of 7 days/Wk (IRF) Estimated Hrs Per Day: 1.5 hours per day Agreement: Yes Rehab Potential: Fair Time/GCodes Start Time: 08:30 Stop Time: 09:30 Total Time Billed (hr/min): 60 Billed Treatment Time 1, ADL x 4 SERAFIN LITTLE OT Oct 10, 2018 12:44
--- NOTE | 2018-10-10 14:49 | Therapy Group Daily Note ---
Therapy Daily Group Note Patient Education Topic Other List Below (transfers) Exercises LE Seated Exercise, UE Exercise Other/Notes Pt participated in group therapy with 3 to 1 ratio. Goals of session: Understanding of safe transfers (car, bed, chair, tub/shower) .(met) Remember one seated exercise UE or LE to lead group.(met) Complete UE/ LE seated exercises.(met) Pt transported via w/c to [facility] for OT/PT group. Group consisted of introductions (name, place, favorite place to visit*fishing*), socialization, seated UE/LE exercises, education on safe transfers and 5 memory words (katalina, VW , 1, dog, cinnamon candy). Pt introduced self appropriately and actively listened to peers. Pt able to complete UE/LE seated exercise with modified one arm technique. Pt lead elbow flexion exercise, 10x's. Pt acknowledged understanding of transfers by nodding head in acknowledgement and verbalizing own story about transfers and home. After group, pt lying in bed with call light/phone in reach. All needs met in room. Start Time: 13:00 Stop Time: 14:15 Total Billed Treatment Time: 75 Total Billed Treatment 1-GRP CHRIS TRINIDAD Oct 10, 2018 14:49
[2018-10-10 17:32] VITALS: BP 124/83
[2018-10-10] MEDS: POLYETHYLENE GLYCOL 17 GM (MIRALAX) PACK PO SCH (21:32)
[2018-10-10] MEDS: HYDROcodone/APAP 5 MG/325 MG (LORTAB) TAB PO PRN (21:35)
[2018-10-10] MEDS: ALPRAZolam 0.25 MG (XANAX) TAB PO PRN (21:35)
[2018-10-11] MEDS: oxyCODONE/APAP 5/325MG (PERCOCET 5) TABLET PO PRN ×3 (03:27→17:30)
[2018-10-11 05:52] VITALS: BP 119/80
[2018-10-11] MEDS: ENOXAPARIN 40 MG/0.4 ML (LOVENOX) SYR SC SCH (08:22)
[2018-10-11] MEDS: SENNA W/DOCUSATE (SENOKOT S) TABLET PO SCH ×2 (08:22→20:20)
[2018-10-11] MEDS: METHOCARBAMOL 750 MG (ROBAXIN) TAB PO SCH ×3 (08:22→20:20)
[2018-10-11] MEDS: LORATADINE (CLARITIN) 10 MG TAB PO SCH (08:22)
[2018-10-11] MEDS: PANTOPRAZOLE 40 MG (PROTONIX) TAB PO SCH (08:22)
[2018-10-11] MEDS: ONDANSETRON 4 MG (ZOFRAN) ORAL DISSOLVE TAB PO PRN (08:23)
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
--- NOTE | 2018-10-11 10:56 | Physical Therapy Daily Note ---
PT Daily Note-Current Subjective Patient in wheelchair in common area pre tx, agrees to PT, has pain of 5/10 in right leg. Appearance Patient in wheelchair at bedside post tx, has nurse call, phone, tray, all needs met. Mental Status Patient Orientation: Person, Place, Situation, Normal For Age right leg brace Transfers Therapy Code Descriptions/Definitions Functional [place] Measure: 0=Not Assessed/NA 4=Minimal Assistance 1=Total Assistance 5=Supervision or Setup 2=Maximal Assistance 6=Modified [place] 3=Moderate Assistance 7=Complete [place] Therapy Quality Codes: 6 Independent with activity with or without an assistive device 5 Patient requires set up or clean up by helper. Patient completes activity by themselves 4 Supervision or touching assist (CGA). [place] provide cues , steadying assist 3 The helper provides less than half the effort to complete the activity 2 The helper provides more than half the effort to complete the activity 1 Dependent. The helper does all the effort to complete an activity 7 Patient refused to complete or attempt activity 9 The patient did not perform the activity before the current illness or injury 88 Not attempted due to Medical conditions or safety concerns Transfers (B, C, W/C) (FIM): 4 Scootin Rollin Supine to/from Sit: 4 Sit to/from Stand: 4 Bed to/from Chair: 4 Patient needs assist with right leg for supine <-> sit, min assist for sit to stand, and CGA for transfers. Weight Bearing Right Lower Extremity: Right Weight Bearing/Tolerated Left Lower Extremity: Left Non Weight Bearing Gait Training Gait (FIM): 1 Distance: 20'x3 Gait Level of Assist: 4 Gait Persons Needed: 1 Gait Assistive Device: FWW CGA, patient is not quite NWB on LLE but places toes on the ground for balance but doesn't seem to put any significant weight through them. Patient has difficulty going 20' and needs several standing rest breaks. Wheelchair Training Does the Pt Use a Wheelchair?: Yes Wheelchair (FIM): 6 Distance: 150'x2 Type of Wheelchair: Manual Exercises Supine Ex: Ankle pumps (RLE), Quad Set, Glut sets, Heel Slides (LLE), Short Arc Quads (LLE), Straight leg raise, Hip abd/add Supine Reps: 20 AAROM on right side with hip abd and SLR Treatments bed mobility and transfers, ambulation, wheelchair mobility, functional strengthening Assessment Current Status: Fair Progress improved ambulation PT Short Term Goals Short Term Goals Time Frame: Oct 14, 2018 Gait (FIM): 1 Distance (FIM): 1=up to 49 ft Gait Distance Comment: 25' Gait Level of Assist: 4 Gait Assistive Device: FWW Wheelchair (FIM): 6 Wheelchair distance (FIM): 3=150 ft Wheelchair Distance: 150'x2 Wheelchair Level of Assist: 6 Stairs (FIM): 2 # of Steps: 2 Stairs Level of Assist: 4 PT [facility] Goals [facility] Goals PT Indoor [employer] Manager Goals Time Frame: Oct 29, 2018 Transfers (B,C,W/C) (FIM): 5 Sit to Lying (QC): 5 Lying-Sitting on Side/Bed(QC): 5 Sit to Stand (QC): 5 Rollin Roll Left to Right (QC): 5 Chair/Xjg-tq-Dbgnr Xfer(QC): 5 Car Transfer (QC): 5 Does the Patient Walk: Yes Gait (FIM): 1 Gait distance (FIM): 1=up to 49 ft Distance: 30' Walk 10 feet (QC): 5 Walk 10ft-Uneven Surface(QC): 5 Walk 50ft with 2 Turns (QC): 88 Walk 150 ft (QC): 88 Gait Level of Assist: 5 Gait Assistive Device: FWW Wheelchair (FIM): 5 Wheelchair distance (FIM): 3=150 ft Distance: 150' Wheelchair Level of Assist: 5 Wheel 50 feet with 2 turns (QC: 5 PT Plan Problem List Problem List: Activity Tolerance, Functional Strength, Safety, Balance, Gait, Transfer, Bed Mobility, ROM Treatment/Plan Treatment Plan: Continue Plan of Care Treatment Plan: Bed Mobility, Concurrent Therapy, Education, Functional Activity Hafsa, Functional Strength, Group Therapy, Gait, Safety, Therapeutic Exercise, Transfers Treatment Duration: Oct 28, 2018 Frequency: At least 5 of 7 days/Wk (IRF) Estimated Hrs Per Day: 1.5 hours per day Patient and/or Family Agrees t: Yes Safety Risks/Education Patient Education: Gait Training, Transfer Techniques, Correct Positioning, W/ C Management, Safety Issues Teaching Recipient: Patient Teaching Methods: Demonstration, Discussion Response to Teaching: Reinforcement Needed Time/GCodes Time In: 1000 Time Out: 1100 Total Billed Treatment Time: 60 Total Billed Treatment 1 visit GT 30' EX 20' WCH 10' KRTEK,SHERON PT Oct 11, 2018 10:56
--- NOTE | 2018-10-11 14:58 | Physical Therapy Daily Note ---
PT Daily Note-Current Subjective Patient in bed pre tx, agrees to PT, has 8/10 pain in right knee. Appearance Patient in bed post tx with nurse call, phone, tray, all needs met. Mental Status Patient Orientation: Person, Place, Situation, Normal For Age right leg brace Transfers Therapy Code Descriptions/Definitions Functional [place] Measure: 0=Not Assessed/NA 4=Minimal Assistance 1=Total Assistance 5=Supervision or Setup 2=Maximal Assistance 6=Modified [place] 3=Moderate Assistance 7=Complete [place] Therapy Quality Codes: 6 Independent with activity with or without an assistive device 5 Patient requires set up or clean up by helper. Patient completes activity by themselves 4 Supervision or touching assist (CGA). [place] provide cues , steadying assist 3 The helper provides less than half the effort to complete the activity 2 The helper provides more than half the effort to complete the activity 1 Dependent. The helper does all the effort to complete an activity 7 Patient refused to complete or attempt activity 9 The patient did not perform the activity before the current illness or injury 88 Not attempted due to Medical conditions or safety concerns Transfers (B, C, W/C) (FIM): 4 Scootin Rollin Supine to/from Sit: 4 Sit to/from Stand: 4 Bed to/from Chair: 4 Weight Bearing Right Lower Extremity: Right Weight Bearing/Tolerated Left Lower Extremity: Left Non Weight Bearing Gait Training Gait (FIM): 1 Distance: 20'x2 Gait Level of Assist: 4 Gait Persons Needed: 1 Gait Assistive Device: FWW Better compliance with WB status, she was able to keep left leg off the ground. Wheelchair Training Does the Pt Use a Wheelchair?: Yes Wheelchair (FIM): 6 Distance: 150'x2 Type of Wheelchair: Manual Treatments bed mobility and transfers, ambulation, wheelchair mobility Assessment Current Status: Fair Progress improving ambulation PT Short Term Goals Short Term Goals Time Frame: Oct 14, 2018 Gait (FIM): 1 Distance (FIM): 1=up to 49 ft Gait Distance Comment: 25' Gait Level of Assist: 4 Gait Assistive Device: FWW Wheelchair (FIM): 6 Wheelchair distance (FIM): 3=150 ft Wheelchair Distance: 150'x2 Wheelchair Level of Assist: 6 Stairs (FIM): 2 # of Steps: 2 Stairs Level of Assist: 4 PT Skilled Nursing Goals [place] [employer] Goals PT Skilled Nursing Goals Time Frame: Oct 29, 2018 Transfers (B,C,W/C) (FIM): 5 Sit to Lying (QC): 5 Lying-Sitting on Side/Bed(QC): 5 Sit to Stand (QC): 5 Rollin Roll Left to Right (QC): 5 Chair/Ire-zv-Lqdky Xfer(QC): 5 Car Transfer (QC): 5 Does the Patient Walk: Yes Gait (FIM): 1 Gait distance (FIM): 1=up to 49 ft Distance: 30' Walk 10 feet (QC): 5 Walk 10ft-Uneven Surface(QC): 5 Walk 50ft with 2 Turns (QC): 88 Walk 150 ft (QC): 88 Gait Level of Assist: 5 Gait Assistive Device: FWW Wheelchair (FIM): 5 Wheelchair distance (FIM): 3=150 ft Distance: 150' Wheelchair Level of Assist: 5 Wheel 50 feet with 2 turns (QC: 5 PT Plan Problem List Problem List: Activity Tolerance, Functional Strength, Safety, Balance, Gait, Transfer, Bed Mobility, ROM Treatment/Plan Treatment Plan: Continue Plan of Care Treatment Plan: Bed Mobility, Concurrent Therapy, Education, Functional Activity Haf[place], Functional Strength, Group Therapy, Gait, Safety, Therapeutic Exercise, Transfers Treatment Duration: Oct 28, 2018 Frequency: At least 5 of 7 days/Wk (IRF) Estimated Hrs Per Day: 1.5 hours per day Patient and/or Family Agrees t: Yes Safety Risks/Education Patient Education: Gait Training, Transfer Techniques, Correct Positioning, W/ C Management, Safety Issues Teaching Recipient: Patient Teaching Methods: Demonstration, Discussion Response to Teaching: Reinforcement Needed Time/GCodes Time In: 1430 Time Out: 1500 Total Billed Treatment Time: 30 Total Billed Treatment 1 visit FA 10' GT 20' SHERON WALL PT Oct 11, 2018 14:58
--- NOTE | 2018-10-11 14:58 | Occupational Ther Daily Note ---
OT Current Status-Daily Note Subjective No pain reported this date. Appearance Pt. in bed. Agreeable to treatment. Declines showering or bathing. Mental Status/Objective Patient Orientation: Person, Place Therapy Code Descriptions/Definitions Functional [place] Measure: 0=Not Assessed/NA 4=Minimal Assistance 1=Total Assistance 5=Supervision or Setup 2=Maximal Assistance 6=Modified [place] 3=Moderate Assistance 7=Complete [place] ADL-Treatment Therapy Code Descriptions/Definitions Functional [place] Measure: 0=Not Assessed/NA 4=Minimal Assistance 1=Total Assistance 5=Supervision or Setup 2=Maximal Assistance 6=Modified [place] 3=Moderate Assistance 7=Complete [place] Therapy Quality Codes: 6 Independent with activity with or without an assistive device 5 Patient requires set up or clean up by helper. Patient completes activity by themselves 4 Supervision or touching assist (CGA). [place] provide cues , steadying assist 3 The helper provides less than half the effort to complete the activity 2 The helper provides more than half the effort to complete the activity 1 Dependent. The helper does all the effort to complete an activity 7 Patient refused to complete or attempt activity 9 The patient did not perform the activity before the current illness or injury 88 Not attempted due to Medical conditions or safety concerns Grooming (FIM): 5 (Pt. has already brushed and braided hair with set up of brush before OT entered room.) Oral Hygiene (QC): 88 Upper Body (FIM): 5 (Set up) Upper Body Dressing (QC): 5 Lower Body Dressing (FIM): 3 (Pt. has knee brace on right LE with leg in full extension, and cast on left LE. Pt. requires mod assist to don clothing without equipment at bed level.) Lower Body Dressing (QC): 3 On/Off Footwear (QC): 2 Transfers (B, C, W/C) (FIM): 4 (Min assist supine-sit and Min assist to slide from bed to wheelchair. Pt. is independent with w/c mobility.) Other Treatment Pt. utilized gait belt around right LE as leg prime broker to go from supine-sit. Pt. is guarded with movements. Once in wheelchair, self propelled to therapy gym. Pt. practiced doffing/donning slipper socks with AE. Pt. able to do this several times with OT retrieving sock. Pt. given sock and is able to don onto sock aide. Min assist to don over foot with leg extended in wheelchair. Self propelled back to room and all needs met. Education OT Patient Education: Correct positioning, Modified ADL techniques, Progress toward Goal/Update tx plan, Purpose of tx/functional activities, Reviewed precautions, Rehab process, Transfer techniques, Use of adapted equipment Teaching Recipient: Patient Teaching Methods: Demonstration, Discussion Response to Teaching: Verbalize Understanding, Return Demonstration OT Short Term Goals Short Term Goals Time Frame: Oct 14, 2018 Bathing(FIM): 4 Lower Body Dressing(FIM): 3 Toileting(FIM): 3 Toilet/Commode Transfer(FIM): 4 Additional Short Term Goals: 1-Demonstrate ADL Tasks, 2-Verbalize Understanding , 3-ImproveStrength/Hafsa 1=Demonstrate adherence to instructed precautions during ADL tasks. 2=Patient will verbalize/demonstrate understanding of assistive devices/ modifications for ADL. 3=Patient will improve strength/tolerance for activity to enable patient to perform ADL's. OT Food [employer] Beverage Cashier Goals Half-Way Goals Time Frame: Oct 28, 2018 Eating (FIM): 7 Eating (QC): 6 Groomin Oral Hygiene (QC): 6 Bathing(FIM): 5 Shower/Bathe Self (QC): 4 Upper Body Dressing(FIM): 6 Upper Body Dressing (QC): 6 Lower Body Dressing(FIM): 5 Lower Body Dressing (QC): 4 On/Off Footwear (QC): 5 Toileting(FIM): 5 Toileting Hygiene (QC): 5 Toilet/Commode Transfer(FIM): 5 Toilet/Commode Transfer (QC): 5 Additional Goals: 1-Demonstrate ADL Tasks, 2-Verbalize Understanding, 3- ImproveStrength/[place]fa 1=Demonstrate adherence to instructed precautions during ADL tasks. 2=Patient will verbalize/demonstrate understanding of assistive devices/ modifications for ADL. 3=Patient will improve strength/tolerance for activity to enable patient to perform ADL's. OT Education/Plan Problem List/Assessment Assessment: Decreased Activ Tolerance, Dependent Transfers, Impaired Bed Mobility, Impaired I ADL's, Impaired Self-Care Skills Pt admitted after acute hospitalization for left calcaneal fracture and right patellar fracture. Pt demonstrates impaired ADL functioning, mobility, strength , and activity tolerance. Pt to benefit from skilled OT intervention for ADL training, transfers, strengthening, adaptive equipment training, and home safety education to increase independence and allow safe discharge plan. Discharge Recommendations Plan/Recommendations: Continue POC Therapy D/C Recommendations: Home w/ Family Support, Occupational Therapy Home Care Equpiment Recommendations-D/C: Extended Bath Bench, Hip Kit Treatment Plan/Plan of Care Treatment,Training & Education: Yes Patient would benefit from OT for education, treatment and training to promote independence in ADL's, mobility, safety and/or upper extremity function for ADL' s. Plan of Care: ADL Retraining, Functional Mobility, Group Exercise/Act as Ind, UE Funct Exercise/Act Treatment Duration: Oct 28, 2018 Frequency: At least 5 of 7 days/Wk (IRF) Estimated Hrs Per Day: 1.5 hours per day Agreement: Yes Rehab Potential: Good Time/GCodes Start Time: 09:15 Stop Time: 10:00 Total Time Billed (hr/min): 45 Billed Treatment Time 1, ADL x 3 SERAFIN LITTLE OT Oct 11, 2018 14:58
--- NOTE | 2018-10-11 16:20 | Occupational Ther Daily Note ---
OT Current Status-Daily Note Subjective No pain reported. Appearance Pt. up in wheelchair. Agreeable to work with OT. Mental Status/Objective Patient Orientation: Person, Place Therapy Code Descriptions/Definitions Functional [place] Measure: 0=Not Assessed/NA 4=Minimal Assistance 1=Total Assistance 5=Supervision or Setup 2=Maximal Assistance 6=Modified [place] 3=Moderate Assistance 7=Complete [place] ADL-Treatment Therapy Code Descriptions/Definitions Functional [place] Measure: 0=Not Assessed/NA 4=Minimal Assistance 1=Total Assistance 5=Supervision or Setup 2=Maximal Assistance 6=Modified [place] 3=Moderate Assistance 7=Complete [place] Therapy Quality Codes: 6 Independent with activity with or without an assistive device 5 Patient requires set up or clean up by helper. Patient completes activity by themselves 4 Supervision or touching assist (CGA). [place] provide cues , steadying assist 3 The helper provides less than half the effort to complete the activity 2 The helper provides more than half the effort to complete the activity 1 Dependent. The helper does all the effort to complete an activity 7 Patient refused to complete or attempt activity 9 The patient did not perform the activity before the current illness or injury 88 Not attempted due to Medical conditions or safety concerns Toileting (FIM): 4 Toileting Hygiene (QC): 4 Transfers (B, C, W/C) (FIM): 4 (Min assist sit-stand. Pt. is able to hop with walker on right LE to toilet.) Toilet/Commode Transfer (FIM): 4 Toilet Transfer (QC): 4 Other Treatment Pt. completes 15 minutes on armbike at mod resistance to increase overall endurance and strength. Tolerated this well with no difficulty. Pt. also talked with OT regarding home set up. Pt. states that she has two steps, one onto the porch and the other into the house. States that she may go and stay with her mother, who has a ramp. Pt. states that she has a bathtub, and OT educated her on a tub transfer bench. Pt. is able to self propel wheelchair independent around dining area, in and out of bathroom, and to table with no difficulty. All needs met back in room. Education OT Patient Education: Correct positioning, Modified ADL techniques, Progress toward Goal/Update tx plan, Purpose of tx/functional activities, Reviewed precautions, Rehab process, Transfer techniques Teaching Recipient: Patient Teaching Methods: Demonstration, Discussion Response to Teaching: Verbalize Understanding, Return Demonstration OT Short Term Goals Short Term Goals Time Frame: Oct 14, 2018 Bathing(FIM): 4 Lower Body Dressing(FIM): 3 Toileting(FIM): 3 Toilet/Commode Transfer(FIM): 4 Additional Short Term Goals: 1-Demonstrate ADL Tasks, 2-Verbalize Understanding , 3-ImproveStrength/Hafsa 1=Demonstrate adherence to instructed precautions during ADL tasks. 2=Patient will verbalize/demonstrate understanding of assistive devices/ modifications for ADL. 3=Patient will improve strength/tolerance for activity to enable patient to perform ADL's. OT Alf Goals Alf Goals Time Frame: Oct 28, 2018 Eating (FIM): 7 Eating (QC): 6 Groomin Oral Hygiene (QC): 6 Bathing(FIM): 5 Shower/Bathe Self (QC): 4 Upper Body Dressing(FIM): 6 Upper Body Dressing (QC): 6 Lower Body Dressing(FIM): 5 Lower Body Dressing (QC): 4 On/Off Footwear (QC): 5 Toileting(FIM): 5 Toileting Hygiene (QC): 5 Toilet/Commode Transfer(FIM): 5 Toilet/Commode Transfer (QC): 5 Additional Goals: 1-Demonstrate ADL Tasks, 2-Verbalize Understanding, 3- ImproveStrength/Hafsa 1=Demonstrate adherence to instructed precautions during ADL tasks. 2=Patient will verbalize/demonstrate understanding of assistive devices/ modifications for ADL. 3=Patient will improve strength/tolerance for activity to enable patient to perform ADL's. OT Education/Plan Problem List/Assessment Assessment: Decreased Activ Tolerance, Decreased UE Strength, Impaired I ADL's , Impaired Self-Care Skills Pt admitted after acute hospitalization for left calcaneal fracture and right patellar fracture. Pt demonstrates impaired ADL functioning, mobility, strength , and activity tolerance. Pt to benefit from skilled OT intervention for ADL training, transfers, strengthening, adaptive equipment training, and home safety education to increase independence and allow safe discharge plan. Discharge Recommendations Plan/Recommendations: Continue POC Therapy D/C Recommendations: Home w/ Family Support, Occupational Therapy Home Care Equpiment Recommendations-D/C: Extended Bath Bench, Hip Kit Treatment Plan/Plan of Care Treatment,Training & Education: Yes Patient would benefit from OT for education, treatment and training to promote independence in ADL's, mobility, safety and/or upper extremity function for ADL' s. Plan of Care: ADL Retraining, Functional Mobility, Group Exercise/Act as Ind, UE Funct Exercise/Act Treatment Duration: Oct 28, 2018 Frequency: At least 5 of 7 days/Wk (IRF) Estimated Hrs Per Day: 1.5 hours per day Agreement: Yes Rehab Potential: Good Time/GCodes Start Time: 12:55 Stop Time: 13:40 Total Time Billed (hr/min): 45 Billed Treatment Time 1, Ex x 30minutes, ADL x 15minutes SERAFIN LITTLE OT Oct 11, 2018 16:20
[2018-10-11 17:33] VITALS: BP 123/80
[2018-10-11] MEDS: POLYETHYLENE GLYCOL 17 GM (MIRALAX) PACK PO SCH (20:20)
[2018-10-11] MEDS: HYDROcodone/APAP 5 MG/325 MG (LORTAB) TAB PO PRN (20:20)
[2018-10-11] MEDS: ALPRAZolam 0.25 MG (XANAX) TAB PO PRN (20:20)
[2018-10-12] MEDS: HYDROcodone/APAP 5 MG/325 MG (LORTAB) TAB PO PRN ×3 (02:04→20:42)
[2018-10-12 06:09] VITALS: BP 116/74
[2018-10-12] MEDS: oxyCODONE/APAP 5/325MG (PERCOCET 5) TABLET PO PRN ×2 (08:14→23:21)
--- NOTE | 2018-10-12 09:05 | PM&R Progress Note ---
Subjective This was a face to face visit with the patient. Date Seen by Provider: Oct 12, 2018 Time Seen by Provider: 08:30 Subjective/Events-last exam Patient was seen in her room She reports she had a migraine so Percocet was given but I told her to have her family bring in Excedrin Migraine Seems to have some emotional problems Difficulty coping Using incentive spirometer Team meeting reports transfers are improved Physical therapy reports minimal assistance and she is hopping and she intends to go home with her mother Occupational Therapy is working on dressing since it is moderate assist but she is motivated to get better She cannot work and may be losing her insurance and has 7 more days of coverage Needs walker and home physical therapy Objective Physician Exam Last Set of Vital Signs Vital Signs Date Time Temp Pulse Resp B/P (MAP) Pulse Ox O2 Delivery O2 Flow Rate FiO2 10/12/18 06:09 97.9 82 16 116/74 (88) 96 Room Air Capillary Refill : Less Than 3 Seconds I&O Intake and Output 10/12/18 00:00 Intake Total 1000 ml Balance 1000 ml Intake Oral 1000 ml # Voids 5 # Bowel Movements 1 General: Alert, Oriented X3, Cooperative, No Acute Distress HEENT: Atraumatic, PERRLA Neck: Supple, No JVD, No Thyromegaly, +2 Carotid Pulse No Bruit, No LAD Lungs: Clear to Auscultation, Normal Air Movement Heart: Regular Rate, Normal S1, Normal S2, No Murmurs Abdomen: Normal Bowel Sounds, Soft, No Tenderness, No Hepatosplenomegaly, No Masses Extremities: No Clubbing, No Cyanosis, No Edema, Normal Pulses, No Tenderness/ Swelling Skin: No Rashes, No Breakdown, No Significant Lesion Neuro: Other (left foot dressing and brace intact and same for right knee) Psych/Mental Status: Mental Status NL, Mood NL Current Funtional Status Continue aggressive treatment Discharge is planned for 10/19/18 Will need a walker at home Migraine treatment with Excedrin Migraine if family brings it in for her Assessment/Plan Assessment and Plan (1) Left calcaneal fracture Qualifiers: Status: Acute (2) Brittle bone disease Status: Chronic (3) Patella fracture Qualifiers: Status: Acute (4) Constipation Qualifiers: Qualified Codes: K59.01 - Slow transit constipation Status: Acute (5) DVT prophylaxis Status: Acute Co-Morbidities that are continuing to impact the rehab process: (include details ) JOSEPH AKINS DO Oct 12, 2018 09:05
[2018-10-12] MEDS: LORATADINE (CLARITIN) 10 MG TAB PO SCH (09:42)
[2018-10-12] MEDS: METHOCARBAMOL 750 MG (ROBAXIN) TAB PO SCH ×3 (09:42→20:39)
[2018-10-12] MEDS: PANTOPRAZOLE 40 MG (PROTONIX) TAB PO SCH (09:42)
[2018-10-12] MEDS: ENOXAPARIN 40 MG/0.4 ML (LOVENOX) SYR SC SCH (09:43)
[2018-10-12] MEDS: SENNA W/DOCUSATE (SENOKOT S) TABLET PO SCH ×2 (09:59→20:39)
[2018-10-12] MEDS: ONDANSETRON 4 MG (ZOFRAN) ORAL DISSOLVE TAB PO PRN (10:10)
--- NOTE | 2018-10-12 11:03 | Physical Therapy Daily Note ---
PT Daily Note-Current Subjective Pt. states she may go stay with her Mom at [place] as her Mom has a ramp. She states her Mother is in her 80s and cant lift on her but her would come over and help when lifting was needed Pain Location: No Pain Reported Mental Status Patient Orientation: Normal For Age Attachments: Knee Immobilizer Transfers Therapy Code Descriptions/Definitions Functional [place] Measure: 0=Not Assessed/NA 4=Minimal Assistance 1=Total Assistance 5=Supervision or Setup 2=Maximal Assistance 6=Modified [place] 3=Moderate Assistance 7=Complete [place] Therapy Quality Codes: 6 Independent with activity with or without an assistive device 5 Patient requires set up or clean up by helper. Patient completes activity by themselves 4 Supervision or touching assist (CGA). [place] provide cues , steadying assist 3 The helper provides less than half the effort to complete the activity 2 The helper provides more than half the effort to complete the activity 1 Dependent. The helper does all the effort to complete an activity 7 Patient refused to complete or attempt activity 9 The patient did not perform the activity before the current illness or injury 88 Not attempted due to Medical conditions or safety concerns Transfers (B, C, W/C) (FIM): 4 Scootin Rollin Supine to/from Sit: 4 (to lift RLE) Sit to/from Stand: 4 pt. manages very well but needs assist for RLE (fully extended at knee) to manage up down and in out bed Weight Bearing Right Lower Extremity: Right Weight Bearing/Tolerated Left Lower Extremity: Left Non Weight Bearing Gait Training Does the Patient Walk?: Yes Gait (FIM): 5 Distance (FIM): 8=441-06 ft (50,20x2) Gait Level of Assist: 5 Gait Persons Needed: 1 Gait Assistive Device: FWW swing thru gait with bilat LEs , heavy wt bearing on FWW, no LOB Wheelchair Training Does the Pt Use a Wheelchair?: Yes Wheelchair (FIM): 5 Wheelchair Distance: 3=150 ft (175,50) Wheelchair Level of Assist: 5 (instruction only) Type of Wheelchair: Manual demonstrates good w/c skills , but needs assist to manage LLE leg rest when getting in out chair, did backing and fig 8s with good safe management Exercises Supine Ex: Ankle pumps, Quad Set, Glut sets, Heel Slides (left), Short Arc Quads (left), Straight leg raise (bilat, assist RLE), Hip abd/add (assist RLE) Supine Reps: 15 Assessment Current Status: Good Progress good progress in all phases Rx PT Short Term Goals Short Term Goals Time Frame: Oct 14, 2018 Gait (FIM): 1 Distance (FIM): 1=up to 49 ft Gait Distance Comment: 25' Gait Level of Assist: 4 Gait Assistive Device: FWW Wheelchair (FIM): 6 Wheelchair distance (FIM): 3=150 ft Wheelchair Distance: 150'x2 Wheelchair Level of Assist: 6 Stairs (FIM): 2 # of Steps: 2 Stairs Level of Assist: 4 PT Marketing Technologist Goals Marketing Technologist Goals PT Fpc Goals Time Frame: Oct 29, 2018 Transfers (B,C,W/C) (FIM): 5 Sit to Lying (QC): 5 Lying-Sitting on Side/Bed(QC): 5 Sit to Stand (QC): 5 Rollin Roll Left to Right (QC): 5 Chair/Lki-lq-Aharx Xfer(QC): 5 Car Transfer (QC): 5 Does the Patient Walk: Yes Gait (FIM): 1 Gait distance (FIM): 1=up to 49 ft Distance: 30' Walk 10 feet (QC): 5 Walk 10ft-Uneven Surface(QC): 5 Walk 50ft with 2 Turns (QC): 88 Walk 150 ft (QC): 88 Gait Level of Assist: 5 Gait Assistive Device: FWW Wheelchair (FIM): 5 Wheelchair distance (FIM): 3=150 ft Distance: 150' Wheelchair Level of Assist: 5 Wheel 50 feet with 2 turns (QC: 5 PT Plan Treatment/Plan Treatment Plan: Continue Plan of Care Treatment Plan: Bed Mobility, Concurrent Therapy, Education, Functional Activity Hafsa, Functional Strength, Group Therapy, Gait, Safety, Therapeutic Exercise, Transfers Treatment Duration: Oct 28, 2018 Frequency: At least 5 of 7 days/Wk (IRF) Estimated Hrs Per Day: 1.5 hours per day Patient and/or Family Agrees t: Yes Safety Risks/Education Patient Education: Gait Training, Transfer Techniques, Correct Positioning, W/ C Management, Disease Process, Safety Issues Teaching Recipient: Patient Teaching Methods: Demonstration, Discussion Response to Teaching: Verbalize Understanding, Return Demonstration, Reinforcement Needed Time/GCodes Time In: 1000 Time Out: 1100 Total Billed Treatment Time: 60 Total Billed Treatment 1,WC15m,EX25m,GT20m G Codes Necessary: NELLY Willard METAL FABRICATING INSPECTOR Oct 12, 2018 11:03
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
--- NOTE | 2018-10-12 16:01 | Therapy Group Daily Note ---
Therapy Daily Group Note Patient Education Topic Other List Below Exercises LE Seated Exercise, UE Exercise Other/Notes Pt participated in group therapy with 4 to 1 ratio. Goals of Session: Understanding of modifications to daily items and environment for ease of use (met). Demonstrate ability to complete UE/LE seated exercises (met). Pt transported via w/c to [facility] for OT/PT group. Group consists of introductions (name, place living, [id number]), socialization, UE/LE seated exercises and education on modifications for items used daily. Pt able to introduce self appropriately and actively listened to peers. Pt able to roll dice with B UE for question to answer. Pt continually encouraged other pts. throughout Group. Pt did acknowledge by nodding head and verbalizing understanding saying yes. Pt completed UE/LE seated exercises using B UE. Pt benefited from group by being able to modify items at home especially those that aid with dressing since pt has difficulty bending over or reaching legs/ feet. 5 words were picked out by pt's to remember next session (2, asterazael, carrajan, latoya, hopscotch). After group, pt toileted then returned to lying in bed with call light/phone in reach. All needs met in room. Start Time: 13:00 Stop Time: 14:20 Total Billed Treatment Time: 80 Total Billed Treatment 1, EMMIE GEORGESATHISHMANJULANOLAN LEUNG Oct 12, 2018 16:01
[2018-10-12 18:39] VITALS: BP 125/81
[2018-10-12] MEDS: POLYETHYLENE GLYCOL 17 GM (MIRALAX) PACK PO SCH (20:39)
[2018-10-13 06:00] VITALS: BP 113/67
[2018-10-13] MEDS: SENNA W/DOCUSATE (SENOKOT S) TABLET PO SCH ×2 (08:13→20:58)
[2018-10-13] MEDS: LORATADINE (CLARITIN) 10 MG TAB PO SCH (08:13)
[2018-10-13] MEDS: METHOCARBAMOL 750 MG (ROBAXIN) TAB PO SCH ×3 (08:14→20:58)
[2018-10-13] MEDS: PANTOPRAZOLE 40 MG (PROTONIX) TAB PO SCH (08:14)
[2018-10-13] MEDS: HYDROcodone/APAP 5 MG/325 MG (LORTAB) TAB PO PRN (08:14)
[2018-10-13] MEDS: ENOXAPARIN 40 MG/0.4 ML (LOVENOX) SYR SC SCH (08:14)
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
--- NOTE | 2018-10-13 11:08 | Physical Therapy Daily Note ---
PT Daily Note-Current Subjective Pt sitting in W/C in Therapy rollApp upon arrival. Pt agrees to PT. Pain Numeric Pain Scale: 4 Location: Right Location Body Site: Knee Pain Description: Ache Mental Status Patient Orientation: Person, Place, Time, Situation Attachments: Other-See Comments (Knee Immobilizer for R knee) Transfers Therapy Code Descriptions/Definitions Functional [place] Measure: 0=Not Assessed/NA 4=Minimal Assistance 1=Total Assistance 5=Supervision or Setup 2=Maximal Assistance 6=Modified [place] 3=Moderate Assistance 7=Complete [place] Therapy Quality Codes: 6 Independent with activity with or without an assistive device 5 Patient requires set up or clean up by helper. Patient completes activity by themselves 4 Supervision or touching assist (CGA). [place] provide cues , steadying assist 3 The helper provides less than half the effort to complete the activity 2 The helper provides more than half the effort to complete the activity 1 Dependent. The helper does all the effort to complete an activity 7 Patient refused to complete or attempt activity 9 The patient did not perform the activity before the current illness or injury 88 Not attempted due to Medical conditions or safety concerns Scootin Sit to/from Stand: 4 Sit to Stand (QC): 4 Weight Bearing Right Lower Extremity: Right Weight Bearing/Tolerated Left Lower Extremity: Left Non Weight Bearing Gait Training Does the Patient Walk?: Yes Distance (FIM): 6=828-57 ft Distance: 60' Walk 10 feet (QC): 5 Walk 50 ft with 2 Turns(QC): 5 Gait Level of Assist: 5 Gait Persons Needed: 1 Gait Assistive Device: FWW Pt has hop to gait pattern. Pt needs assistance with R knee immobilizer. Wheelchair Training Does the Pt Use a Wheelchair?: Yes Wheelchair Distance: 3=150 ft Distance: 150' Wheelchair Level of Assist: 5 Wheel 50 ft with 2 turns (QC): 5 Wheel 150 ft (QC): 5 Type of Wheelchair: Manual Exercises Supine Ex: Ankle pumps, Quad Set, Glut sets, Heel Slides, Straight leg raise, Hip abd/add Supine Reps: 15 (2 sets) Treatments Pt propels W/C in Therapy rollApp and hallway. Pt transfers from W/C to EOB using FWW then EOB to Supine at Min A to lift BLE into mat. Pt completes Supine Ex then transfers back to W/C. Pt propels W/C to Therapy rollApp then rests before ambulation. Pt ambulates in hallway twice before returning to W/ C. Pt transfers from W/C to EOB then to Supine to rest. Pt has all needs met. Assessment Current Status: Good Progress Pt pushes self to progress pass fatigue and discomfort. PT Short Term Goals Short Term Goals Time Frame: Oct 14, 2018 Gait (FIM): 1 Distance (FIM): 1=up to 49 ft Gait Distance Comment: 25' Gait Level of Assist: 4 Gait Assistive Device: FWW Wheelchair (FIM): 6 Wheelchair distance (FIM): 3=150 ft Wheelchair Distance: 150'x2 Wheelchair Level of Assist: 6 Stairs (FIM): 2 # of Steps: 2 Stairs Level of Assist: 4 PT Halfway Goals Halfway Goals PT Food Service Representative Goals Time Frame: Oct 29, 2018 Transfers (B,C,W/C) (FIM): 5 Sit to Lying (QC): 5 Lying-Sitting on Side/Bed(QC): 5 Sit to Stand (QC): 5 Rollin Roll Left to Right (QC): 5 Chair/Ion-rq-Orioj Xfer(QC): 5 Car Transfer (QC): 5 Does the Patient Walk: Yes Gait (FIM): 1 Gait distance (FIM): 1=up to 49 ft Distance: 30' Walk 10 feet (QC): 5 Walk 10ft-Uneven Surface(QC): 5 Walk 50ft with 2 Turns (QC): 88 Walk 150 ft (QC): 88 Gait Level of Assist: 5 Gait Assistive Device: FWW Wheelchair (FIM): 5 Wheelchair distance (FIM): 3=150 ft Distance: 150' Wheelchair Level of Assist: 5 Wheel 50 feet with 2 turns (QC: 5 PT Plan Problem List Problem List: Activity Tolerance, Functional Strength, Safety, Balance, Gait, Transfer Treatment/Plan Treatment Plan: Continue Plan of Care Treatment Plan: Bed Mobility, Concurrent Therapy, Education, Functional Activity Hafsa, Functional Strength, Group Therapy, Gait, Safety, Therapeutic Exercise, Transfers Treatment Duration: Oct 28, 2018 Frequency: At least 5 of 7 days/Wk (IRF) Estimated Hrs Per Day: 1.5 hours per day Patient and/or Family Agrees t: Yes Safety Risks/Education Patient Education: Gait Training, Transfer Techniques, Correct Positioning, Safety Issues Teaching Recipient: Patient Teaching Methods: Discussion Response to Teaching: Verbalize Understanding Time/GCodes Time In: 1000 Time Out: 1100 Total Billed Treatment Time: 60 Total Billed Treatment 1, GT (20m), FA (10m) & EX x2 (30m) G Codes Necessary: MANJULA Smith CAPACITOR PACK PRESS OPERATOR Oct 13, 2018 11:08
--- NOTE | 2018-10-13 12:52 | Occupational Ther Daily Note ---
OT Current Status-Daily Note Subjective Pt. does not report pain, but does grimace with movement. Appearance Pt. in bed. Agrees to work with therapy. Mental Status/Objective Patient Orientation: Person, Place Therapy Code Descriptions/Definitions Functional [place] Measure: 0=Not Assessed/NA 4=Minimal Assistance 1=Total Assistance 5=Supervision or Setup 2=Maximal Assistance 6=Modified [place] 3=Moderate Assistance 7=Complete [place] ADL-Treatment Therapy Code Descriptions/Definitions Functional [place] Measure: 0=Not Assessed/NA 4=Minimal Assistance 1=Total Assistance 5=Supervision or Setup 2=Maximal Assistance 6=Modified [place] 3=Moderate Assistance 7=Complete [place] Therapy Quality Codes: 6 Independent with activity with or without an assistive device 5 Patient requires set up or clean up by helper. Patient completes activity by themselves 4 Supervision or touching assist (CGA). [place] provide cues , steadying assist 3 The helper provides less than half the effort to complete the activity 2 The helper provides more than half the effort to complete the activity 1 Dependent. The helper does all the effort to complete an activity 7 Patient refused to complete or attempt activity 9 The patient did not perform the activity before the current illness or injury 88 Not attempted due to Medical conditions or safety concerns Grooming (FIM): 6 (Pt. is able to brush hair and put into a ponytail.) Bathing (FIM): 4 (Pt. required assistance to wash right foot.) Shower/Bathe Self (QC): 4 Upper Body (FIM): 5 Upper Body Dressing (QC): 5 Lower Body Dressing (FIM): 3 (Pt. requires assistance to don slipper sock while in shower area. Went to bed via shower chair and transferred to bed. Able to don underwear and pants while at bed level with dressing stick.) Lower Body Dressing (QC): 3 On/Off Footwear (QC): 2 Transfers (B, C, W/C) (FIM): 3 (Mod assist supine-sit. Min assist sit-stand. Min assist to transfer to chair. Min/Mod assist to position foot once sitting on chair.) Shower Transfer(FIM): 1 (Pt. transferred into shower via shower chair.) Other Treatment After ADLs in room, pt. transferred to wheelchair and self propelled to dining area. OT got pt. a soda. Spoke to her about her needs again for home. Pt. states that whether she goes to her moms house, or mother in laws house, she will have a bathtub. Will need a tub transfer bench. Pt's mother has a stool riser and ramp. Pt. up waiting for PT at end of treatment session. Education OT Patient Education: Correct positioning, Modified ADL techniques, Progress toward Goal/Update tx plan, Purpose of tx/functional activities, Reviewed precautions, Rehab process, Transfer techniques, Use of adapted equipment Teaching Recipient: Patient Teaching Methods: Demonstration, Discussion Response to Teaching: Verbalize Understanding, Return Demonstration OT Short Term Goals Short Term Goals Time Frame: Oct 14, 2018 Bathing(FIM): 4 Lower Body Dressing(FIM): 3 Toileting(FIM): 3 Toilet/Commode Transfer(FIM): 4 Additional Short Term Goals: 1-Demonstrate ADL Tasks, 2-Verbalize Understanding , 3-ImproveStrength/Hafsa 1=Demonstrate adherence to instructed precautions during ADL tasks. 2=Patient will verbalize/demonstrate understanding of assistive devices/ modifications for ADL. 3=Patient will improve strength/tolerance for activity to enable patient to perform ADL's. OT Skilled Nursing Goals Skilled Nursing Goals Time Frame: Oct 28, 2018 Eating (FIM): 7 Eating (QC): 6 Groomin Oral Hygiene (QC): 6 Bathing(FIM): 5 Shower/Bathe Self (QC): 4 Upper Body Dressing(FIM): 6 Upper Body Dressing (QC): 6 Lower Body Dressing(FIM): 5 Lower Body Dressing (QC): 4 On/Off Footwear (QC): 5 Toileting(FIM): 5 Toileting Hygiene (QC): 5 Toilet/Commode Transfer(FIM): 5 Toilet/Commode Transfer (QC): 5 Additional Goals: 1-Demonstrate ADL Tasks, 2-Verbalize Understanding, 3- ImproveStrength/Hafsa 1=Demonstrate adherence to instructed precautions during ADL tasks. 2=Patient will verbalize/demonstrate understanding of assistive devices/ modifications for ADL. 3=Patient will improve strength/tolerance for activity to enable patient to perform ADL's. OT Education/Plan Problem List/Assessment Assessment: Decreased Activ Tolerance, Decreased UE Strength, Dependent Transfers, Impaired Bed Mobility, Impaired Funct Balance, Impaired I ADL's, Impaired Self-Care Skills Pt admitted after acute hospitalization for left calcaneal fracture and right patellar fracture. Pt demonstrates impaired ADL functioning, mobility, strength , and activity tolerance. Pt to benefit from skilled OT intervention for ADL training, transfers, strengthening, adaptive equipment training, and home safety education to increase independence and allow safe discharge plan. Discharge Recommendations Plan/Recommendations: Continue POC Therapy D/C Recommendations: Home w/ Family Support, Occupational Therapy Home Care Equpiment Recommendations-D/C: Extended Bath Bench, Hip Kit Treatment Plan/Plan of Care Treatment,Training & Education: Yes Patient would benefit from OT for education, treatment and training to promote independence in ADL's, mobility, safety and/or upper extremity function for ADL' s. Plan of Care: ADL Retraining, Functional Mobility, Group Exercise/Act as Ind, UE Funct Exercise/Act Treatment Duration: Oct 28, 2018 Frequency: At least 5 of 7 days/Wk (IRF) Estimated Hrs Per Day: 1.5 hours per day Agreement: Yes Rehab Potential: Good Time/GCodes Start Time: 08:30 Stop Time: 10:00 Total Time Billed (hr/min): 90 Billed Treatment Time 1, ADL x 6 SERAFIN LITTLE OT Oct 13, 2018 12:52
--- NOTE | 2018-10-13 13:42 | NUR ---
Weekly team conference Discussed weekly team conference with patient. Tentative discharge date is set for 10/19/18. Patient is agreeable to discharge plan. 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 I told the patient I would contact one of the hospital social workers to discuss finances and options with her. She verbalized understanding.
--- NOTE | 2018-10-13 15:34 | Physical Therapy Daily Note ---
PT Daily Note-Current Subjective Pt laying Supine in bed upon arrival. Pt reports fatigue but agrees to Supine Ex in bed. Mental Status Patient Orientation: Person, Place, Time, Situation Attachments: Other-See Comments (R knee immobilizer) Transfers Therapy Code Descriptions/Definitions Functional [place] Measure: 0=Not Assessed/NA 4=Minimal Assistance 1=Total Assistance 5=Supervision or Setup 2=Maximal Assistance 6=Modified [place] 3=Moderate Assistance 7=Complete [place] Therapy Quality Codes: 6 Independent with activity with or without an assistive device 5 Patient requires set up or clean up by helper. Patient completes activity by themselves 4 Supervision or touching assist (CGA). [place] provide cues , steadying assist 3 The helper provides less than half the effort to complete the activity 2 The helper provides more than half the effort to complete the activity 1 Dependent. The helper does all the effort to complete an activity 7 Patient refused to complete or attempt activity 9 The patient did not perform the activity before the current illness or injury 88 Not attempted due to Medical conditions or safety concerns Weight Bearing Right Lower Extremity: Right Weight Bearing/Tolerated Left Lower Extremity: Left Non Weight Bearing Exercises Supine Ex: Ankle pumps, Quad Set, Glut sets, Heel Slides, Straight leg raise, Hip abd/add Supine Reps: 15 Treatments Pt completes Supine Ex in bed followed by short rest break. Pt has question about SW to help apply for SSI. COLLECTION TEAM LEAD advised pt that SW is conferring with another SW for this and will be visiting with pt shortly. Pt resting in bed at end of tx, visiting with family with all needs met. Assessment Current Status: Good Progress Pt is anxious about completing tx and discharging back home. PT Short Term Goals Short Term Goals Time Frame: Oct 14, 2018 Gait (FIM): 1 Distance (FIM): 1=up to 49 ft Gait Distance Comment: 25' Gait Level of Assist: 4 Gait Assistive Device: FWW Wheelchair (FIM): 6 Wheelchair distance (FIM): 3=150 ft Wheelchair Distance: 150' Wheelchair Level of Assist: 6 Stairs (FIM): 2 # of Steps: 2 Stairs Level of Assist: 4 PT Smoking Tobacco Packing Machine Hand Goals Smoking Tobacco Packing Machine Hand Goals PT Retirement Goals Time Frame: Oct 29, 2018 Transfers (B,C,W/C) (FIM): 5 Sit to Lying (QC): 5 Lying-Sitting on Side/Bed(QC): 5 Sit to Stand (QC): 5 Rollin Roll Left to Right (QC): 5 Chair/Fvl-zc-Aoctf Xfer(QC): 5 Car Transfer (QC): 5 Does the Patient Walk: Yes Gait (FIM): 1 Gait distance (FIM): 1=up to 49 ft Distance: 30' Walk 10 feet (QC): 5 Walk 10ft-Uneven Surface(QC): 5 Walk 50ft with 2 Turns (QC): 88 Walk 150 ft (QC): 88 Gait Level of Assist: 5 Gait Assistive Device: FWW Wheelchair (FIM): 5 Wheelchair distance (FIM): 3=150 ft Distance: 150' Wheelchair Level of Assist: 5 Wheel 50 feet with 2 turns (QC: 5 PT Plan Problem List Problem List: Activity Tolerance, Functional Strength, Safety, Balance, Gait, Transfer Treatment/Plan Treatment Plan: Continue Plan of Care Treatment Plan: Bed Mobility, Concurrent Therapy, Education, Functional Activity Hafsa, Functional Strength, Group Therapy, Gait, Safety, Therapeutic Exercise, Transfers Treatment Duration: Oct 28, 2018 Frequency: At least 5 of 7 days/Wk (IRF) Estimated Hrs Per Day: 1.5 hours per day Patient and/or Family Agrees t: Yes Safety Risks/Education Patient Education: Transfer Techniques, Correct Positioning, Safety Issues Teaching Recipient: Patient Teaching Methods: Discussion Response to Teaching: Verbalize Understanding Time/GCodes Time In: 1430 Time Out: 1500 Total Billed Treatment Time: 30 Total Billed Treatment 1, EX (20m) & FA (10m) G Codes Necessary: MANJULA Smith COLLECTION TEAM LEAD Oct 13, 2018 15:34
[2018-10-13 17:25] VITALS: BP 119/72
[2018-10-13] MEDS: POLYETHYLENE GLYCOL 17 GM (MIRALAX) PACK PO SCH (20:58)
[2018-10-13] MEDS: oxyCODONE/APAP 5/325MG (PERCOCET 5) TABLET PO PRN (20:58)
[2018-10-13] MEDS: ALPRAZolam 0.25 MG (XANAX) TAB PO PRN (21:23)
[2018-10-14] MEDS: oxyCODONE/APAP 5/325MG (PERCOCET 5) TABLET PO PRN (03:17)
[2018-10-14 06:00] VITALS: BP 122/76
[2018-10-14] MEDS: METHOCARBAMOL 750 MG (ROBAXIN) TAB PO SCH ×3 (08:49→20:51)
[2018-10-14] MEDS: PANTOPRAZOLE 40 MG (PROTONIX) TAB PO SCH (08:49)
[2018-10-14] MEDS: LORATADINE (CLARITIN) 10 MG TAB PO SCH (08:49)
[2018-10-14] MEDS: ENOXAPARIN 40 MG/0.4 ML (LOVENOX) SYR SC SCH (08:49)
[2018-10-14] MEDS: SENNA W/DOCUSATE (SENOKOT S) TABLET PO SCH ×2 (08:49→20:51)
--- NOTE | 2018-10-14 10:55 | Physical Therapy Daily Note ---
PT Daily Note-Current Subjective Pt. asleep and states she had a hard time waking up today. States she and her family havent decided yet where she will go at [place]. "I wish I knew" c/o pain in right ankle at 5/10. Mental Status Patient Orientation: Normal For Age Attachments: Other-See Comments (knee immoblizer right) Transfers Therapy Code Descriptions/Definitions Functional [place] Measure: 0=Not Assessed/NA 4=Minimal Assistance 1=Total Assistance 5=Supervision or Setup 2=Maximal Assistance 6=Modified [place] 3=Moderate Assistance 7=Complete [place] Therapy Quality Codes: 6 Independent with activity with or without an assistive device 5 Patient requires set up or clean up by helper. Patient completes activity by themselves 4 Supervision or touching assist (CGA). [place] provide cues , steadying assist 3 The helper provides less than half the effort to complete the activity 2 The helper provides more than half the effort to complete the activity 1 Dependent. The helper does all the effort to complete an activity 7 Patient refused to complete or attempt activity 9 The patient did not perform the activity before the current illness or injury 88 Not attempted due to Medical conditions or safety concerns Transfers (B, C, W/C) (FIM): 4 Scootin Rollin Supine to/from Sit: 4 (pt. used gait belt to lift her RLE in out bed) Sit to/from Stand: 5 Weight Bearing Right Lower Extremity: Right Weight Bearing/Tolerated Left Lower Extremity: Left Non Weight Bearing Gait Training Does the Patient Walk?: Yes Gait (FIM): 5 Distance (FIM): 9=715-81 ft (60ftx3) Gait Level of Assist: 5 Gait Persons Needed: 1 Gait Assistive Device: FWW fatigues, needs w/c follow up secondary to fatigue Wheelchair Training Does the Pt Use a Wheelchair?: Yes Wheelchair (FIM): 4 (needs assist for leg rest off on on RLE) Wheelchair Distance: 3=150 ft Wheelchair Level of Assist: 4 Type of Wheelchair: Manual Exercises Supine Ex: Ankle pumps, Quad Set, Rolling, Glut sets, Heel Slides (left only), Scooting, Straight leg raise (assist right), Hip abd/add (assist right) Supine Reps: 15 crunches x 10 Assessment Current Status: Good Progress limited by being able to get RLE in out bed indep PT Short Term Goals Short Term Goals Time Frame: Oct 14, 2018 Gait (FIM): 1 Distance (FIM): 1=up to 49 ft Gait Distance Comment: 25' Gait Level of Assist: 4 Gait Assistive Device: FWW Wheelchair (FIM): 6 Wheelchair distance (FIM): 3=150 ft Wheelchair Distance: 150' Wheelchair Level of Assist: 6 Stairs (FIM): 2 # of Steps: 2 Stairs Level of Assist: 4 PT Java Programming Professor Goals Java Programming Professor Goals PT Java Programming Professor Goals Time Frame: Oct 29, 2018 Transfers (B,C,W/C) (FIM): 5 Sit to Lying (QC): 5 Lying-Sitting on Side/Bed(QC): 5 Sit to Stand (QC): 5 Rollin Roll Left to Right (QC): 5 Chair/Vua-qm-Qwdqf Xfer(QC): 5 Car Transfer (QC): 5 Does the Patient Walk: Yes Gait (FIM): 1 Gait distance (FIM): 1=up to 49 ft Distance: 30' Walk 10 feet (QC): 5 Walk 10ft-Uneven Surface(QC): 5 Walk 50ft with 2 Turns (QC): 88 Walk 150 ft (QC): 88 Gait Level of Assist: 5 Gait Assistive Device: FWW Wheelchair (FIM): 5 Wheelchair distance (FIM): 3=150 ft Distance: 150' Wheelchair Level of Assist: 5 Wheel 50 feet with 2 turns (QC: 5 PT Plan Treatment/Plan Treatment Plan: Continue Plan of Care Treatment Plan: Bed Mobility, Concurrent Therapy, Education, Functional Activity Hafsa, Functional Strength, Group Therapy, Gait, Safety, Therapeutic Exercise, Transfers Treatment Duration: Oct 28, 2018 Frequency: At least 5 of 7 days/Wk (IRF) Estimated Hrs Per Day: 1.5 hours per day Patient and/or Family Agrees t: Yes Safety Risks/Education Patient Education: Gait Training, Transfer Techniques, Correct Positioning, W/ C Management, Disease Process, Safety Issues Teaching Recipient: Patient Teaching Methods: Demonstration, Discussion Response to Teaching: Verbalize Understanding, Return Demonstration, Reinforcement Needed Time/GCodes Time In: 1000 Time Out: 1100 Total Billed Treatment Time: 60 Total Billed Treatment 1,GT25m,EX15m,wc20m G Codes Necessary: No NELLY GARZA DENTAL CERAMIST HELPER Oct 14, 2018 10:55
--- NOTE | 2018-10-14 12:00 | PM&R Progress Note ---
Subjective This was a face to face visit with the patient. Date Seen by Provider: Oct 14, 2018 Time Seen by Provider: 09:00 Subjective/Events-last exam Patient was seen in room Patient doing very well Using incentive spirometer Large bowel movement last night Pain medication is adequate Denies any shortness of breath or wheezing Review of Systems Musculoskeletal: leg pain, foot pain Objective Physician Exam Last Set of Vital Signs Vital Signs Date Time Temp Pulse Resp B/P (MAP) Pulse Ox O2 Delivery O2 Flow Rate FiO2 10/14/18 09:00 Room Air 10/14/18 06:00 97.9 89 18 122/76 (91) 98 Capillary Refill : Less Than 3 Seconds I&O Intake and Output 10/14/18 00:00 Intake Total 1250 ml Balance 1250 ml Intake Oral 1250 ml # Voids 6 # Bowel Movements 1 General: Alert, Oriented X3, Cooperative, No Acute Distress HEENT: Atraumatic, PERRLA Neck: Supple, No JVD, No Thyromegaly, +2 Carotid Pulse No Bruit, No LAD Lungs: Clear to Auscultation, Normal Air Movement Heart: Regular Rate, Normal S1, Normal S2, No Murmurs Abdomen: Normal Bowel Sounds, Soft, No Tenderness, No Hepatosplenomegaly, No Masses Extremities: No Clubbing, No Cyanosis, No Edema, Normal Pulses, No Tenderness/ Swelling Skin: No Rashes, No Breakdown, No Significant Lesion Neuro: Other (left foot dressing and brace intact and same for right knee) Psych/Mental Status: Mental Status NL, Mood NL Current Funtional Status Continue pain meds Monitor closely Assessment/Plan Assessment and Plan (1) Left calcaneal fracture Qualifiers: Status: Acute (2) Brittle bone disease Status: Chronic (3) Patella fracture Qualifiers: Status: Acute (4) Constipation Qualifiers: Qualified Codes: K59.01 - Slow transit constipation Status: Acute (5) DVT prophylaxis Status: Acute Co-Morbidities that are continuing to impact the rehab process: (include details ) JOSEPH AKINS DO Oct 14, 2018 12:00
--- NOTE | 2018-10-14 12:44 | Occupational Ther Daily Note ---
OT Current Status-Daily Note Subjective Pt agrees to treatment this am. Pt reports she is having pain, but does not rate. Mental Status/Objective Therapy Code Descriptions/Definitions Functional [place] Measure: 0=Not Assessed/NA 4=Minimal Assistance 1=Total Assistance 5=Supervision or Setup 2=Maximal Assistance 6=Modified [place] 3=Moderate Assistance 7=Complete [place] ADL-Treatment Pt in restroom when therapist arrives. Pt has already completed toileting hygiene. Sit to stand from toilet with minimal assistance for safety. Transfer to w/c with FWW. Pt declined shower, but would like to change clothes. Pt doffed shirt with SBA. Pt bathed upper body with set up. Don bra and pullover shirt with set up. Pt doffed underwear and pants with mod assist using dressing stick. Pt used dressing stick to start underwear and pants over feet. Pt required mod assist secondary to cast on left foot and brace on right. Sit to stand with minimal assistance. Pt able to complete pant hike with CGA for balance. Therapy Code Descriptions/Definitions Functional [place] Measure: 0=Not Assessed/NA 4=Minimal Assistance 1=Total Assistance 5=Supervision or Setup 2=Maximal Assistance 6=Modified [place] 3=Moderate Assistance 7=Complete [place] Therapy Quality Codes: 6 Independent with activity with or without an assistive device 5 Patient requires set up or clean up by helper. Patient completes activity by themselves 4 Supervision or touching assist (CGA). [place] provide cues , steadying assist 3 The helper provides less than half the effort to complete the activity 2 The helper provides more than half the effort to complete the activity 1 Dependent. The helper does all the effort to complete an activity 7 Patient refused to complete or attempt activity 9 The patient did not perform the activity before the current illness or injury 88 Not attempted due to Medical conditions or safety concerns Upper Body (FIM): 5 Upper Body Dressing (QC): 5 Lower Body Dressing (FIM): 3 Lower Body Dressing (QC): 3 Toilet/Commode Transfer (FIM): 4 Toilet Transfer (QC): 3 Other Treatment Pt propelled w/c to therapy gym without assistance. Pt completed arm bike [id number] to increase overall strength and activity tolerance needed for ADLs and transfers. Pt performed activity with moderate resistance and steady pace. No rest breaks needed. Pt propelled back to room, sitting in w/c with needs met after session. OT Short Term Goals Short Term Goals Time Frame: Oct 14, 2018 Bathing(FIM): 4 Lower Body Dressing(FIM): 3 Toileting(FIM): 3 Toilet/Commode Transfer(FIM): 4 Additional Short Term Goals: 1-Demonstrate ADL Tasks, 2-Verbalize Understanding , 3-ImproveStrength/Hafsa 1=Demonstrate adherence to instructed precautions during ADL tasks. 2=Patient will verbalize/demonstrate understanding of assistive devices/ modifications for ADL. 3=Patient will improve strength/tolerance for activity to enable patient to perform ADL's. OT Feed Crusher Operator Goals Group Home Goals Time Frame: Oct 28, 2018 Eating (FIM): 7 Eating (QC): 6 Groomin Oral Hygiene (QC): 6 Bathing(FIM): 5 Shower/Bathe Self (QC): 4 Upper Body Dressing(FIM): 6 Upper Body Dressing (QC): 6 Lower Body Dressing(FIM): 5 Lower Body Dressing (QC): 4 On/Off Footwear (QC): 5 Toileting(FIM): 5 Toileting Hygiene (QC): 5 Toilet/Commode Transfer(FIM): 5 Toilet/Commode Transfer (QC): 5 Additional Goals: 1-Demonstrate ADL Tasks, 2-Verbalize Understanding, 3- ImproveStrength/Hafsa 1=Demonstrate adherence to instructed precautions during ADL tasks. 2=Patient will verbalize/demonstrate understanding of assistive devices/ modifications for ADL. 3=Patient will improve strength/tolerance for activity to enable patient to perform ADL's. OT Education/Plan Discharge Recommendations Plan/Recommendations: Continue POC Treatment Plan/Plan of Care Patient would benefit from OT for education, treatment and training to promote independence in ADL's, mobility, safety and/or upper extremity function for ADL' s. Plan of Care: ADL Retraining, Functional Mobility, Group Exercise/Act as Ind, UE Funct Exercise/Act Treatment Duration: Oct 28, 2018 Frequency: At least 5 of 7 days/Wk (IRF) Estimated Hrs Per Day: 1.5 hours per day Agreement: Yes Rehab Potential: Good Time/GCodes Start Time: 11:00 Stop Time: 12:00 Total Time Billed (hr/min): 60 Billed Treatment Time 1 visit, ADLx3(40minutes), EX(20minutes) RITO,NIC L OT Oct 14, 2018 12:44
--- NOTE | 2018-10-14 13:36 | Physician Query Clarification ---
PQ-Further Specificity Admission/Discharge Admission Date: Oct 06, 2018 at 17:30 Discharge Date: The medical record reflects the following clinical scenario: History/Risk Factors: FX Lt calcaneus, Fx Rt. patella, brittle bone disease Clinical Findings: Fx Lt calcaneus, Fx Rt patella Treatment: s/p repair, Rehab Question: Can you further specify if the fractures are due to trauma or due to the brittle bone disease per the clinical indicators above? Please document below. 1. Fractures due to trauma 2. Fractures due to brittle bone disease 3. Other, with explanation of the clinical findings. 4. Clinically undetermined, no explanation for the clinical findings. PHYSICIAN RESPONSE Can you specify per above: 1 In responding to this query, please exercise your independent professional judgment. The purpose of this communication is to more accurately reflect the complexity of your patients condition. The fact that a question is asked does not imply that any particular answer is desired or expected. Thank you for your timely response to this clarification. Requestors name: Jackie THIS PHYSICIAN QUERY FORM IS A PERMANENT PART OF THE MEDICAL RECORD JACKIE JACOBSON Oct 14, 2018 13:36 JOSEPH AKINS DO Oct 14, 2018 16:44
--- NOTE | 2018-10-14 15:40 | Therapy Group Daily Note ---
Therapy Daily Group Note Patient Education Topic Other List Below (memory) Other/Notes Pt. participated in PT OT group session. Ratio was 4:1. Objective: Demonstrates knowledge of memory strategies to promote safety at home. (met) Understands purpose and objectives of ARU (met) Pt. benefitted from group this date communicating well socially and interacting with peers appropriately. Pt did have difficulty hearing participants, modified by repeating statement/questions. Pt. participated in sharing her own strategies for remembering things at home. Pt. participated in matching images game with others in group again laughing and sharing and having great success at remembering where images are . Pt. ambulated to and from [facility] using. Pt. in room after with jimenez at hand and needs met Start Time: 13:00 Stop Time: 14:15 Total Billed Treatment Time: 75 Total Billed Treatment 1-GRP CHRIS TRINIDAD Oct 14, 2018 15:40
[2018-10-14] MEDS: HYDROcodone/APAP 5 MG/325 MG (LORTAB) TAB PO PRN ×2 (16:55→20:50)
[2018-10-14 17:16] VITALS: BP 124/80
--- NOTE | 2018-10-14 19:21 | NUR ---
bedside report received from ADAN MELO, assume care of pt
[2018-10-14] MEDS: ALPRAZolam 0.25 MG (XANAX) TAB PO PRN (20:50)
--- NOTE | 2018-10-14 20:50 | NUR ---
c/o osman lower extremity pain, level 8/10 on numeric scale, Lortab 5 1 tab & Xanax 0.25mg po given
[2018-10-14] MEDS: POLYETHYLENE GLYCOL 17 GM (MIRALAX) PACK PO SCH (20:51)
--- NOTE | 2018-10-14 21:00 | NUR ---
assessments & interventions completed, see assessments & interventions
--- NOTE | 2018-10-14 21:30 | NUR ---
pain level 2/10 on numeric scale
[2018-10-15] MEDS: HYDROcodone/APAP 5 MG/325 MG (LORTAB) TAB PO PRN ×3 (02:43→20:24)
--- NOTE | 2018-10-15 02:43 | NUR ---
c/o osman lower extremity pain level 9/10 on numeric scale, Lortab 5 1 tab po given
--- NOTE | 2018-10-15 03:20 | NUR ---
resting quietly in bed, pain level 0/10 on flacc scale
[2018-10-15 05:45] VITALS: BP 118/79
--- NOTE | 2018-10-15 07:23 | NUR ---
bedside report given to ADAN MELO
[2018-10-15] MEDS: ENOXAPARIN 40 MG/0.4 ML (LOVENOX) SYR SC SCH (09:03)
[2018-10-15] MEDS: METHOCARBAMOL 750 MG (ROBAXIN) TAB PO SCH ×3 (09:06→20:51)
[2018-10-15] MEDS: PANTOPRAZOLE 40 MG (PROTONIX) TAB PO SCH (09:06)
[2018-10-15] MEDS: SENNA W/DOCUSATE (SENOKOT S) TABLET PO SCH ×2 (09:06→20:51)
[2018-10-15] MEDS: LORATADINE (CLARITIN) 10 MG TAB PO SCH (09:06)
--- NOTE | 2018-10-15 11:04 | Physical Therapy Daily Note ---
PT Daily Note-Current Subjective Pt. c/o she is having pain in right shoulder area, point to anterior area likely biceps tendonitis. Discussed resting as much as much as possible from weight bearing, only using to TRF this weekend, no walking . Agreed to WC mobility and LE exercises. Pain Numeric Pain Scale: 4 Location: Right Location Body Site: Shoulder Pain Description: Ache Mental Status Patient Orientation: Normal For Age Attachments: Other-See Comments (immoblizer) Transfers Therapy Code Descriptions/Definitions Functional [place] Measure: 0=Not Assessed/NA 4=Minimal Assistance 1=Total Assistance 5=Supervision or Setup 2=Maximal Assistance 6=Modified [place] 3=Moderate Assistance 7=Complete [place] Therapy Quality Codes: 6 Independent with activity with or without an assistive device 5 Patient requires set up or clean up by helper. Patient completes activity by themselves 4 Supervision or touching assist (CGA). [place] provide cues , steadying assist 3 The helper provides less than half the effort to complete the activity 2 The helper provides more than half the effort to complete the activity 1 Dependent. The helper does all the effort to complete an activity 7 Patient refused to complete or attempt activity 9 The patient did not perform the activity before the current illness or injury 88 Not attempted due to Medical conditions or safety concerns Transfers (B, C, W/C) (FIM): 4 Scootin Rollin Supine to/from Sit: 4 Sit to/from Stand: 5 needs assist for RLE lowering from bed to floor Weight Bearing Right Lower Extremity: Right Weight Bearing/Tolerated Left Lower Extremity: Left Non Weight Bearing Wheelchair Training Does the Pt Use a Wheelchair?: Yes Wheelchair (FIM): 4 Wheelchair Distance: 3=150 ft (160x2) Wheelchair Level of Assist: 4 Type of Wheelchair: Manual needs assist only for R leg rest lowering and raising, attaching and detaching Exercises Supine Ex: Ankle pumps (right), Quad Set, Rolling, Glut sets, Heel Slides ( left only), Short Arc Quads (right only), Scooting, Straight leg raise (aassist on R), Hip abd/add (assist right) Supine Reps: 15 also performed crunches x 12 in supine with some assist, LEs on wedge, tactile cues to maintain "apple" under chin Assessment Current Status: Good Progress PT Short Term Goals Short Term Goals Time Frame: Oct 14, 2018 Gait (FIM): 1 Distance (FIM): 1=up to 49 ft Gait Distance Comment: 25' Gait Level of Assist: 4 Gait Assistive Device: FWW Wheelchair (FIM): 6 Wheelchair distance (FIM): 3=150 ft Wheelchair Distance: 150' Wheelchair Level of Assist: 6 Stairs (FIM): 2 # of Steps: 2 Stairs Level of Assist: 4 PT Mcfp Goals Mcfp Goals PT Mcfp Goals Time Frame: Oct 29, 2018 Transfers (B,C,W/C) (FIM): 5 Sit to Lying (QC): 5 Lying-Sitting on Side/Bed(QC): 5 Sit to Stand (QC): 5 Rollin Roll Left to Right (QC): 5 Chair/Zgq-bp-Rvnrx Xfer(QC): 5 Car Transfer (QC): 5 Does the Patient Walk: Yes Gait (FIM): 1 Gait distance (FIM): 1=up to 49 ft Distance: 30' Walk 10 feet (QC): 5 Walk 10ft-Uneven Surface(QC): 5 Walk 50ft with 2 Turns (QC): 88 Walk 150 ft (QC): 88 Gait Level of Assist: 5 Gait Assistive Device: FWW Wheelchair (FIM): 5 Wheelchair distance (FIM): 3=150 ft Distance: 150' Wheelchair Level of Assist: 5 Wheel 50 feet with 2 turns (QC: 5 PT Plan Treatment/Plan Treatment Plan: Continue Plan of Care Treatment Plan: Bed Mobility, Concurrent Therapy, Education, Functional Activity Hafsa, Functional Strength, Group Therapy, Gait, Safety, Therapeutic Exercise, Transfers Treatment Duration: Oct 28, 2018 Frequency: At least 5 of 7 days/Wk (IRF) Estimated Hrs Per Day: 1.5 hours per day Patient and/or Family Agrees t: Yes Safety Risks/Education Patient Education: Transfer Techniques, Correct Positioning, W/C Management, Disease Process, Safety Issues Teaching Recipient: Patient Teaching Methods: Demonstration, Discussion Response to Teaching: Verbalize Understanding, Return Demonstration, Reinforcement Needed Time/GCodes Time In: 1015 Time Out: 1045 Total Billed Treatment Time: 30 Total Billed Treatment 1,FA15m,EX15m G Codes Necessary: NELLY Willard STORE MERCHANDISER Oct 15, 2018 11:04
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
[2018-10-15] MEDS: DICLOFENAC 1% GEL 100 GM (VOLTAREN) TUBE TOP PRN ×2 (15:17→20:25)
[2018-10-15 18:00] VITALS: BP 120/69
--- NOTE | 2018-10-15 19:17 | NUR ---
bedside report received from ADAN MELO, assume care of pt
--- NOTE | 2018-10-15 20:24 | NUR ---
c/o osman lower extremity pain level 9/10 on numeric scale, Lortab 5 1 tab po given
[2018-10-15] MEDS: ALPRAZolam 0.25 MG (XANAX) TAB PO PRN (20:50)
[2018-10-15] MEDS: POLYETHYLENE GLYCOL 17 GM (MIRALAX) PACK PO SCH (20:52)
--- NOTE | 2018-10-15 21:00 | NUR ---
assessments & interventions completed, see assessments & interventions, refused miralax but took Senokot s tab took Xanax 0.25mg for anxiety
--- NOTE | 2018-10-15 21:15 | NUR ---
pain level 2/10 on numeric scale
[2018-10-16] MEDS: HYDROcodone/APAP 5 MG/325 MG (LORTAB) TAB PO PRN ×3 (02:43→21:15)
--- NOTE | 2018-10-16 02:43 | NUR ---
c/o lower extremity pain level 8/10 on numeric scale, lortab 5 1 tab po given
--- NOTE | 2018-10-16 03:20 | NUR ---
resting quietly in bed pain level 0/10 on flacc scale
[2018-10-16 05:18] VITALS: BP 118/76
--- NOTE | 2018-10-16 07:28 | NUR ---
bedside report given to SARA MELO
[2018-10-16] MEDS: METHOCARBAMOL 750 MG (ROBAXIN) TAB PO SCH ×3 (08:50→21:14)
[2018-10-16] MEDS: PANTOPRAZOLE 40 MG (PROTONIX) TAB PO SCH (08:50)
[2018-10-16] MEDS: LORATADINE (CLARITIN) 10 MG TAB PO SCH (08:50)
[2018-10-16] MEDS: ALPRAZolam 0.25 MG (XANAX) TAB PO PRN ×2 (08:50→21:14)
[2018-10-16] MEDS: SENNA W/DOCUSATE (SENOKOT S) TABLET PO SCH ×2 (08:50→21:00)
--- NOTE | 2018-10-16 08:50 | NUR ---
C/O chest pain, 04/29... center of chest to back. BP 152/83, P 83, oxygen is 100% on RA. Xanax given. See eMAR for details.
[2018-10-16] MEDS: ENOXAPARIN 40 MG/0.4 ML (LOVENOX) SYR SC SCH (08:51)
--- NOTE | 2018-10-16 08:55 | NUR ---
EKG done and showing normal ECG. SR with a rate of 86. Repeat vitals- BP 128/81, P 85 and oxygen is 100% on RA. Pain improving. Now a 12/28.
[2018-10-16 09:03] VITALS: BP 125/81
[2018-10-16 10:55] VITALS: BP 109/67
--- NOTE | 2018-10-16 10:56 | NUR ---
Feeling better. Denies chest pain.
--- NOTE | 2018-10-16 12:50 | NUR ---
Dr. Espinoza to floor. Informed of chest pain this AM. Reviewed EKG. New order for baby Aspirin daily PRN chest pain.
[2018-10-16] MEDS ORDERED: ASPIRIN 81 MG CHEW (CHILDREN'S ASA) PO PRN (13:00)
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
[2018-10-16 17:57] VITALS: BP 122/77
--- NOTE | 2018-10-16 19:14 | NUR ---
bedside report received from SARA MELO, assume care of pt
[2018-10-16] MEDS: POLYETHYLENE GLYCOL 17 GM (MIRALAX) PACK PO SCH (21:00)
--- NOTE | 2018-10-16 21:00 | NUR ---
assessments & interventions completed, see assessments & interventions, refused miralax & Senokot 1 due to loose stools
--- NOTE | 2018-10-16 21:15 | NUR ---
c/o lower extremity pain level 7/10 on numeric scale, Lortab 5 1 tab po give & Xanax 0.25mg & Benadryl 25mg po for anxiety & itching
[2018-10-16] MEDS: diphenhydrAMINE 25 MG TAB (BENADRYL) PO PRN (21:21)
--- NOTE | 2018-10-16 22:05 | NUR ---
rates pain at 2/10 on numeric scale
[2018-10-17] MEDS: HYDROcodone/APAP 5 MG/325 MG (LORTAB) TAB PO PRN ×3 (02:41→20:57)
--- NOTE | 2018-10-17 02:41 | NUR ---
c/o lower extremity pain, level 7/10 on numeric scale, lortab 5 1 tab po given
--- NOTE | 2018-10-17 03:20 | NUR ---
resting quietly in bed, pain level 0/10 on flacc scale
[2018-10-17 05:55] VITALS: BP 116/77
[2018-10-17] MEDS: oxyCODONE/APAP 5/325MG (PERCOCET 5) TABLET PO PRN (06:04)
--- NOTE | 2018-10-17 06:04 | NUR ---
c/o lower extremity pain level 8/10 on numeric scale Percocet 5/325 1 tab po given
--- NOTE | 2018-10-17 06:30 | NUR ---
resting quietly in bed, pain level 0/10 on flacc scale
--- NOTE | 2018-10-17 07:22 | NUR ---
bedside report given to ANAIS MELO
[2018-10-17] MEDS: METHOCARBAMOL 750 MG (ROBAXIN) TAB PO SCH ×3 (08:42→20:56)
[2018-10-17] MEDS: PANTOPRAZOLE 40 MG (PROTONIX) TAB PO SCH (08:42)
[2018-10-17] MEDS: LORATADINE (CLARITIN) 10 MG TAB PO SCH (08:42)
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
[2018-10-17] MEDS: ENOXAPARIN 40 MG/0.4 ML (LOVENOX) SYR SC SCH (08:43)
--- NOTE | 2018-10-17 09:05 | Physical Therapy Daily Note ---
PT Daily Note-Current Subjective Pt. agrees to rx. States she is a little bit emotional because she had chest pain yesterday. Pt. states she has had it before. " I can feel my heart skipping beats". This BROILER CHEF [employer] COOK relates this to perhaps anxiety about DC planned for . discussed with pt. that we hope to assist her in acquiring a FWW, and w/c with elevating leg rest on right Pain Numeric Pain Scale: 3 Location: Right Location Body Site: Shoulder Pain Description: Ache Mental Status Patient Orientation: Normal For Age Attachments: Other-See Comments (knee immoblizer right) Transfers Therapy Code Descriptions/Definitions Functional [place] Measure: 0=Not Assessed/NA 4=Minimal Assistance 1=Total Assistance 5=Supervision or Setup 2=Maximal Assistance 6=Modified [place] 3=Moderate Assistance 7=Complete [place] Therapy Quality Codes: 6 Independent with activity with or without an assistive device 5 Patient requires set up or clean up by helper. Patient completes activity by themselves 4 Supervision or touching assist (CGA). [place] provide cues , steadying assist 3 The helper provides less than half the effort to complete the activity 2 The helper provides more than half the effort to complete the activity 1 Dependent. The helper does all the effort to complete an activity 7 Patient refused to complete or attempt activity 9 The patient did not perform the activity before the current illness or injury 88 Not attempted due to Medical conditions or safety concerns Transfers (B, C, W/C) (FIM): 5 Scootin Rollin Supine to/from Sit: 5 Sit to/from Stand: 5 Bed to/from Chair: 5 pt. was able this date to repeatedly go from sup to sit and sit to sup with SBA only. Pt. uses RUE to lift RLE in out with safe technique Weight Bearing Right Lower Extremity: Right Weight Bearing/Tolerated Left Lower Extremity: Left Non Weight Bearing Gait Training Does the Patient Walk?: Yes Gait (FIM): 1 Distance (FIM): 1=up to 49 ft (25x2) Gait Level of Assist: 5 Gait Persons Needed: 1 Gait Assistive Device: FWW slow, careful, proper weight bearing Wheelchair Training Does the Pt Use a Wheelchair?: Yes Wheelchair (FIM): 5 Wheelchair Distance: 3=150 ft Wheelchair Level of Assist: 5 Type of Wheelchair: Manual needs some assist if she has to take extended leg rest off on chair Stair Training Stair Training: Handrails/: 2 handrails Stairs (FIM): 2 #of Steps: 4 Stairs: Pattern: Hops Level of Assist: 4 pt. able to ascend and descend pink step in parallel bars x 4 in anticipation of ascending 2 platform type steps at her home where she would be able to use the FWW and have her SOs assist. Asked pt. to contact him to schedule training for stairs and use of w/c as well as gait assist before she DCs Exercises Supine Ex: Ankle pumps, Rolling, Straight leg raise, Hip abd/add Supine Reps: 10 Treatments pt. able to TRF in out bed indep this date by lifting her RLE with UEs slow, careful, good control Assessment Current Status: Good Progress pt. may be having some anxiety about DC. She seemed emotional as this BROILER [employer]F [employer] COOK entered the room but as Rx went on she relaxed and laughed and did well. Pt. responds to encouragement and reassurance PT Short Term Goals Short Term Goals Time Frame: Oct 14, 2018 Gait (FIM): 1 Distance (FIM): 1=up to 49 ft Gait Distance Comment: 25' Gait Level of Assist: 4 Gait Assistive Device: FWW Wheelchair (FIM): 6 Wheelchair distance (FIM): 3=150 ft Wheelchair Distance: 150' Wheelchair Level of Assist: 6 Stairs (FIM): 2 # of Steps: 2 Stairs Level of Assist: 4 PT Nursing Home Goals Assistant Speech Language Pathologist Goals PT Nursing Home Goals Time Frame: Oct 29, 2018 Transfers (B,C,W/C) (FIM): 5 Sit to Lying (QC): 5 Lying-Sitting on Side/Bed(QC): 5 Sit to Stand (QC): 5 Rollin Roll Left to Right (QC): 5 Chair/[id number] Xfer(QC): 5 Car Transfer (QC): 5 Does the Patient Walk: Yes Gait (FIM): 1 Gait distance (FIM): 1=up to 49 ft Distance: 30' Walk 10 feet (QC): 5 Walk 10ft-Uneven Surface(QC): 5 Walk 50ft with 2 Turns (QC): 88 Walk 150 ft (QC): 88 Gait Level of Assist: 5 Gait Assistive Device: FWW Wheelchair (FIM): 5 Wheelchair distance (FIM): 3=150 ft Distance: 150' Wheelchair Level of Assist: 5 Wheel 50 feet with 2 turns (QC: 5 PT Plan Treatment/Plan Treatment Plan: Continue Plan of Care Treatment Plan: Bed Mobility, Concurrent Therapy, Education, Functional Activity Haf[place], Functional Strength, Group Therapy, Gait, Safety, Therapeutic Exercise, Transfers Treatment Duration: Oct 28, 2018 Frequency: At least 5 of 7 days/Wk (IRF) Estimated Hrs Per Day: 1.5 hours per day Patient and/or Family Agrees t: Yes Safety Risks/Education Patient Education: Gait Training, Transfer Techniques, Steps, Correct Positioning, W/C Management, Disease Process, Safety Issues Teaching Recipient: Patient Teaching Methods: Demonstration, Discussion Response to Teaching: Verbalize Understanding, Return Demonstration, Reinforcement Needed Time/GCodes Time In: 800 Time Out: 900 Total Billed Treatment Time: 60 Total Billed Treatment 1,FA30m,GT10m,WC20m G Codes Necessary: NELLY Willard BROILER CHEF [employer] COOK Oct 17, 2018 09:05
[2018-10-17] MEDS: SENNA W/DOCUSATE (SENOKOT S) TABLET PO SCH ×2 (09:33→20:56)
[2018-10-17] MEDS: guaiFENesin/CODEINE (ROBITUSSIN AC) 10ML UDC PO PRN ×2 (09:33→20:59)
--- NOTE | 2018-10-17 11:26 | NUR ---
PT EATING WELL, 83% MEALS. WEIGHT SHOWS 7# WEIGHT LOSS, WHICH IS LIKELY AN ERROR. RECOMMEND RE-WEIGH PT.
--- NOTE | 2018-10-17 12:43 | Occupational Ther Daily Note ---
OT Current Status-Daily Note Subjective Pt. reports discomfort during transfers, but does not report pain level. Appearance Pt. in chair. Agrees to shower. Mental Status/Objective Patient Orientation: Person, Place Therapy Code Descriptions/Definitions Functional [place] Measure: 0=Not Assessed/NA 4=Minimal Assistance 1=Total Assistance 5=Supervision or Setup 2=Maximal Assistance 6=Modified [place] 3=Moderate Assistance 7=Complete [place] Bilateral LE are wrapped to keep dry. ADL-Treatment Therapy Code Descriptions/Definitions Functional [place] Measure: 0=Not Assessed/NA 4=Minimal Assistance 1=Total Assistance 5=Supervision or Setup 2=Maximal Assistance 6=Modified [place] 3=Moderate Assistance 7=Complete [place] Therapy Quality Codes: 6 Independent with activity with or without an assistive device 5 Patient requires set up or clean up by helper. Patient completes activity by themselves 4 Supervision or touching assist (CGA). [place] provide cues , steadying assist 3 The helper provides less than half the effort to complete the activity 2 The helper provides more than half the effort to complete the activity 1 Dependent. The helper does all the effort to complete an activity 7 Patient refused to complete or attempt activity 9 The patient did not perform the activity before the current illness or injury 88 Not attempted due to Medical conditions or safety concerns Grooming (FIM): 5 (Set up to brush hair.) Bathing (FIM): 4 (Pt. is able to wash all parts with LH sponge, but requires cues and min assist for positioning while drying off in shower.) Shower/Bathe Self (QC): 4 Upper Body (FIM): 5 Upper Body Dressing (QC): 5 Lower Body Dressing (FIM): 4 (Pt. requires positioning for right LE and assist to fully doff pants over feet. Pt. transferred back to bed after shower and able to complete LE dressing at bed level with SBA.) Lower Body Dressing (QC): 4 On/Off Footwear (QC): 4 Transfers (B, C, W/C) (FIM): 4 (Min assist to stand out of chair.) Shower Transfer(FIM): 4 (Pt. stood and pivoted to shower chair this date.) Other Treatment Pt. has anxiety with ADLs. Requires encouragement at times. Pt. is doing well with ADL treatment. All needs are met while in bed. After ADLs, pt. completed UE exercises, yellow theraband x 3 exercises x 15 reps each x 2 sets. Pt. also completed hand squeezes to increase overall strength in bilateral hands. All needs are met in bed. Education OT Patient Education: Correct positioning, Exercise program, Home exercise program, Modified ADL techniques, Progress toward Goal/Update tx plan, Purpose of tx/functional activities, Reviewed precautions, Rehab process, Transfer techniques, Use of adapted equipment Teaching Recipient: Patient Teaching Methods: Demonstration, Discussion Response to Teaching: Verbalize Understanding, Return Demonstration OT Short Term Goals Short Term Goals Time Frame: Oct 14, 2018 Bathing(FIM): 4 Lower Body Dressing(FIM): 3 Toileting(FIM): 3 Toilet/Commode Transfer(FIM): 4 Additional Short Term Goals: 1-Demonstrate ADL Tasks, 2-Verbalize Understanding , 3-ImproveStrength/Hafsa 1=Demonstrate adherence to instructed precautions during ADL tasks. 2=Patient will verbalize/demonstrate understanding of assistive devices/ modifications for ADL. 3=Patient will improve strength/tolerance for activity to enable patient to perform ADL's. OT Senior Living Goals Senior Living Goals Time Frame: Oct 28, 2018 Eating (FIM): 7 Eating (QC): 6 Groomin Oral Hygiene (QC): 6 Bathing(FIM): 5 Shower/Bathe Self (QC): 4 Upper Body Dressing(FIM): 6 Upper Body Dressing (QC): 6 Lower Body Dressing(FIM): 5 Lower Body Dressing (QC): 4 On/Off Footwear (QC): 5 Toileting(FIM): 5 Toileting Hygiene (QC): 5 Toilet/Commode Transfer(FIM): 5 Toilet/Commode Transfer (QC): 5 Additional Goals: 1-Demonstrate ADL Tasks, 2-Verbalize Understanding, 3- ImproveStrength/[place] 1=Demonstrate adherence to instructed precautions during ADL tasks. 2=Patient will verbalize/demonstrate understanding of assistive devices/ modifications for ADL. 3=Patient will improve strength/tolerance for activity to enable patient to perform ADL's. OT Education/Plan Problem List/Assessment Assessment: Decreased Activ Tolerance, Decreased UE Strength, Dependent Transfers, Impaired Funct Balance, Impaired I ADL's, Impaired Self-Care Skills Discharge Recommendations Plan/Recommendations: Continue POC Therapy D/C Recommendations: Home w/ Family Support, Occupational Therapy Home Care Equpiment Recommendations-D/C: Extended Bath Bench, Hip Kit Treatment Plan/Plan of Care Treatment,Training & Education: Yes Patient would benefit from OT for education, treatment and training to promote independence in ADL's, mobility, safety and/or upper extremity function for ADL' s. Plan of Care: ADL Retraining, Functional Mobility, Group Exercise/Act as Ind, UE Funct Exercise/Act Treatment Duration: Oct 28, 2018 Frequency: At least 5 of 7 days/Wk (IRF) Estimated Hrs Per Day: 1.5 hours per day Agreement: Yes Rehab Potential: Good Time/GCodes Start Time: 10:30 Stop Time: 12:00 Total Time Billed (hr/min): 90 Billed Treatment Time 1, ADL x 60minutes, Ex x 30minutes SERAFIN LITTLE OT Oct 17, 2018 12:43
--- NOTE | 2018-10-17 13:24 | Physical Therapy Daily Note ---
PT Daily Note-Current Subjective Pt. on toilet . Agrees to Rx after. Pt communicated with this SLAT BASKET MAKER HELPER to set up 2pm meeting time with her S.O. for 10-18 to train him in w/c management ie up down curb and step as well as assisting pt. up down steps. Pain Location: No Pain Reported Mental Status Patient Orientation: Normal For Age Transfers Therapy Code Descriptions/Definitions Functional [place] Measure: 0=Not Assessed/NA 4=Minimal Assistance 1=Total Assistance 5=Supervision or Setup 2=Maximal Assistance 6=Modified [place] 3=Moderate Assistance 7=Complete [place] Therapy Quality Codes: 6 Independent with activity with or without an assistive device 5 Patient requires set up or clean up by helper. Patient completes activity by themselves 4 Supervision or touching assist (CGA). [place] provide cues , steadying assist 3 The helper provides less than half the effort to complete the activity 2 The helper provides more than half the effort to complete the activity 1 Dependent. The helper does all the effort to complete an activity 7 Patient refused to complete or attempt activity 9 The patient did not perform the activity before the current illness or injury 88 Not attempted due to Medical conditions or safety concerns sit to stand x 5 all SBA Weight Bearing Right Lower Extremity: Right Weight Bearing/Tolerated Left Lower Extremity: Left Non Weight Bearing Gait Training Gait Assistive Device: FWW 65 ft x 2 slow, FWW CGA to SBA, adheres to wt bearing restrictions, arms and shoulders fatiguing with gait Wheelchair Training Type of Wheelchair: Manual 50 ft x 2, assistance only for leg rests on off Assessment Current Status: Good Progress fatigued with gait and TRFs PT Short Term Goals Short Term Goals Time Frame: Oct 14, 2018 Gait (FIM): 1 Distance (FIM): 1=up to 49 ft Gait Distance Comment: 25' Gait Level of Assist: 4 Gait Assistive Device: FWW Wheelchair (FIM): 6 Wheelchair distance (FIM): 3=150 ft Wheelchair Distance: 150' Wheelchair Level of Assist: 6 Stairs (FIM): 2 # of Steps: 2 Stairs Level of Assist: 4 PT Senior Living Goals Time Piece Repairer Goals PT Time Piece Repairer Goals Time Frame: Oct 29, 2018 Transfers (B,C,W/C) (FIM): 5 Sit to Lying (QC): 5 Lying-Sitting on Side/Bed(QC): 5 Sit to Stand (QC): 5 Rollin Roll Left to Right (QC): 5 Chair/Amz-yv-Lirjk Xfer(QC): 5 Car Transfer (QC): 5 Does the Patient Walk: Yes Gait (FIM): 1 Gait distance (FIM): 1=up to 49 ft Distance: 30' Walk 10 feet (QC): 5 Walk 10ft-Uneven Surface(QC): 5 Walk 50ft with 2 Turns (QC): 88 Walk 150 ft (QC): 88 Gait Level of Assist: 5 Gait Assistive Device: FWW Wheelchair (FIM): 5 Wheelchair distance (FIM): 3=150 ft Distance: 150' Wheelchair Level of Assist: 5 Wheel 50 feet with 2 turns (QC: 5 PT Plan Treatment/Plan Treatment Plan: Continue Plan of Care Treatment Plan: Bed Mobility, Concurrent Therapy, Education, Functional Activity Hafsa, Functional Strength, Group Therapy, Gait, Safety, Therapeutic Exercise, Transfers Treatment Duration: Oct 28, 2018 Frequency: At least 5 of 7 days/Wk (IRF) Estimated Hrs Per Day: 1.5 hours per day Patient and/or Family Agrees t: Yes Safety Risks/Education Patient Education: Gait Training, Transfer Techniques, Correct Positioning, Disease Process, Safety Issues Teaching Recipient: Patient Teaching Methods: Demonstration, Discussion Response to Teaching: Verbalize Understanding, Return Demonstration, Reinforcement Needed Time/GCodes Time In: 1250 Time Out: 1320 Total Billed Treatment Time: 30 Total Billed Treatment 1,GT20m,FA10m G Codes Necessary: NELLY Willard SLAT BASKET MAKER HELPER Oct 17, 2018 13:24
--- NOTE | 2018-10-17 14:20 | NUR ---
Call to [facility] [employer], to attempt to re-schedule pt's 3 f/u appts to combine to be on 1 day, rather than 3 separate visits. The office staff had already left for the day, will attempt again tomorrow. Pt states that, "[facility]'s having trouble w the car now." States, "we'll work it out."
[2018-10-17 16:07] VITALS: BP 119/81
--- NOTE | 2018-10-17 16:24 | NUR ---
Pt needing wheelchair with elevated leg rests, Front wheel walker, Bedside commode,transfer shower bench, and hip kit. Pt chose [facility] in [place], [place]. Faxed medical and insurance information to see what would be covered by insurance. Contacted [employer] [place] [employer] but they have not yet responded. Will follow.
[2018-10-17] MEDS: ALPRAZolam 0.25 MG (XANAX) TAB PO PRN (20:57)
[2018-10-17] MEDS: diphenhydrAMINE 25 MG TAB (BENADRYL) PO PRN (20:57)
[2018-10-17] MEDS: POLYETHYLENE GLYCOL 17 GM (MIRALAX) PACK PO SCH (21:00)
[2018-10-18] MEDS: HYDROcodone/APAP 5 MG/325 MG (LORTAB) TAB PO PRN ×2 (05:47→15:04)
[2018-10-18 06:00] VITALS: BP 126/78
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
[2018-10-18] MEDS: METHOCARBAMOL 750 MG (ROBAXIN) TAB PO SCH ×3 (09:24→20:23)
[2018-10-18] MEDS: PANTOPRAZOLE 40 MG (PROTONIX) TAB PO SCH (09:24)
[2018-10-18] MEDS: ENOXAPARIN 40 MG/0.4 ML (LOVENOX) SYR SC SCH (09:24)
[2018-10-18] MEDS: LORATADINE (CLARITIN) 10 MG TAB PO SCH (09:24)
[2018-10-18] MEDS: oxyCODONE/APAP 5/325MG (PERCOCET 5) TABLET PO PRN ×2 (09:36→20:23)
--- NOTE | 2018-10-18 10:09 | Physical Therapy Daily Note ---
PT Daily Note-Current Subjective Pt asleep Supine in bed upon arrival. Pt agrees to PT although difficult to keep on task. Pain Numeric Pain Scale: 6 Location: Right, Left Location Body Site: Knee Pain Description: Ache, Tightness Mental Status Patient Orientation: Person, Place, Time, Situation Attachments: Other-See Comments (R knee immoblizer) Transfers Therapy Code Descriptions/Definitions Functional [place] Measure: 0=Not Assessed/NA 4=Minimal Assistance 1=Total Assistance 5=Supervision or Setup 2=Maximal Assistance 6=Modified [place] 3=Moderate Assistance 7=Complete [place] Therapy Quality Codes: 6 Independent with activity with or without an assistive device 5 Patient requires set up or clean up by helper. Patient completes activity by themselves 4 Supervision or touching assist (CGA). [place] provide cues , steadying assist 3 The helper provides less than half the effort to complete the activity 2 The helper provides more than half the effort to complete the activity 1 Dependent. The helper does all the effort to complete an activity 7 Patient refused to complete or attempt activity 9 The patient did not perform the activity before the current illness or injury 88 Not attempted due to Medical conditions or safety concerns Transfers (B, C, W/C) (FIM): 5 Scootin Rollin Roll Left to Right (QC): 5 Supine to/from Sit: 5 Sit to/from Stand: 5 Sit to Lying (QC): 5 Sit to Stand (QC): 5 Chair/Wvt-uh-[place]ucem Xfer(QC): 5 Bed to/from Chair: 5 Car Transfer (QC): 5 Pt is SBA with Bed Mobility after COMPLIANCE MGR explains how to use a loop on gait belt to lift RLE in & out of bed. Weight Bearing Right Lower Extremity: Right Weight Bearing/Tolerated Left Lower Extremity: Left Non Weight Bearing Gait Training Does the Patient Walk?: Yes Distance (FIM): 0=048-45 ft Distance: 100' Walk 10 feet (QC): 5 Walk 50 ft with 2 Turns(QC): 5 Gait Level of Assist: 5 Gait Persons Needed: 1 Gait Assistive Device: FWW Pt fatigues after walking this morning. Wheelchair Training Does the Pt Use a Wheelchair?: Yes Wheelchair (FIM): 6 Wheelchair Distance: 3=150 ft Distance: 150' Wheelchair Level of Assist: 6 Wheel 50 ft with 2 turns (QC): 6 Wheel 150 ft (QC): 6 Type of Wheelchair: Manual Stair Training Will be practiced with SO present this afternoon. Balance Picking up an Object (QC): 88 Special Test Comments Pt will be using municipal firefighter to pick and shovel man objects from floor due to restrictions pt has for WB. Treatments Pt completes Bed mobility and practice with gait belt loop for lifting RLE in & out of bed. Pt ambulates to restroom. After finishing in restroom, pt ambulates in hallway as far as she can. Pt transfers to [facility] and practices mobility in it. Pt returns to room at end of tx with all needs met. Pt will complete FIM scoring with SO present this afternoon. Assessment Current Status: Good Progress Pt is a hard worker and very motivated. Pt sometimes has difficulty staying on task. PT Short Term Goals Short Term Goals Time Frame: Oct 14, 2018 Gait (FIM): 1 Distance (FIM): 1=up to 49 ft Gait Distance Comment: 25' Gait Level of Assist: 4 Gait Assistive Device: FWW Wheelchair (FIM): 6 Wheelchair distance (FIM): 3=150 ft Wheelchair Distance: 150' Wheelchair Level of Assist: 6 Stairs (FIM): 2 # of Steps: 2 Stairs Level of Assist: 4 PT Sfdc Developer Goals Sfdc Developer Goals PT Sfdc Developer Goals Time Frame: Oct 29, 2018 Transfers (B,C,W/C) (FIM): 5 Sit to Lying (QC): 5 Lying-Sitting on Side/Bed(QC): 5 Sit to Stand (QC): 5 Rollin Roll Left to Right (QC): 5 Chair/Onl-yb-Ptulb Xfer(QC): 5 Car Transfer (QC): 5 Does the Patient Walk: Yes Gait (FIM): 1 Gait distance (FIM): 1=up to 49 ft Distance: 30' Walk 10 feet (QC): 5 Walk 10ft-Uneven Surface(QC): 5 Walk 50ft with 2 Turns (QC): 88 Walk 150 ft (QC): 88 Gait Level of Assist: 5 Gait Assistive Device: FWW Wheelchair (FIM): 5 Wheelchair distance (FIM): 3=150 ft Distance: 150' Wheelchair Level of Assist: 5 Wheel 50 feet with 2 turns (QC: 5 PT Plan Problem List Problem List: Activity Tolerance, Functional Strength, Safety, Balance, Gait, Transfer Treatment/Plan Treatment Plan: Continue Plan of Care Treatment Plan: Bed Mobility, Concurrent Therapy, Education, Functional Activity Hafsa, Functional Strength, Group Therapy, Gait, Safety, Therapeutic Exercise, Transfers Treatment Duration: Oct 28, 2018 Frequency: At least 5 of 7 days/Wk (IRF) Estimated Hrs Per Day: 1.5 hours per day Patient and/or Family Agrees t: Yes Safety Risks/Education Patient Education: Gait Training, Transfer Techniques, Correct Positioning, Safety Issues Teaching Recipient: Patient Teaching Methods: Discussion Response to Teaching: Verbalize Understanding Time/GCodes Time In: 800 Time Out: 900 Total Billed Treatment Time: 60 Total Billed Treatment 1, GT (15m), FA x2 (30m) & WCH (15m) G Codes Necessary: MANJULA Smith PTA Oct 18, 2018 10:09
[2018-10-18] MEDS: SENNA W/DOCUSATE (SENOKOT S) TABLET PO SCH ×2 (11:54→20:23)
--- NOTE | 2018-10-18 13:29 | Occupational Ther Daily Note ---
OT Current Status-Daily Note Subjective Pt. does not report pain. States that she might be going home tomorrow. Appearance Pt. up in wheelchair. Agrees to therapy. Mental Status/Objective Patient Orientation: Person, Place, Time, Situation Therapy Code Descriptions/Definitions Functional [place] Measure: 0=Not Assessed/NA 4=Minimal Assistance 1=Total Assistance 5=Supervision or Setup 2=Maximal Assistance 6=Modified [place] 3=Moderate Assistance 7=Complete [place] ADL-Treatment Therapy Code Descriptions/Definitions Functional [place] Measure: 0=Not Assessed/NA 4=Minimal Assistance 1=Total Assistance 5=Supervision or Setup 2=Maximal Assistance 6=Modified [place] 3=Moderate Assistance 7=Complete [place] Therapy Quality Codes: 6 Independent with activity with or without an assistive device 5 Patient requires set up or clean up by helper. Patient completes activity by themselves 4 Supervision or touching assist (CGA). [place] provide cues , steadying assist 3 The helper provides less than half the effort to complete the activity 2 The helper provides more than half the effort to complete the activity 1 Dependent. The helper does all the effort to complete an activity 7 Patient refused to complete or attempt activity 9 The patient did not perform the activity before the current illness or injury 88 Not attempted due to Medical conditions or safety concerns Grooming (FIM): 6 Oral Hygiene (QC): 6 Bathing (FIM): 5 (SBA in shower to wash all parts.) Shower/Bathe Self (QC): 4 Upper Body (FIM): 6 Upper Body Dressing (QC): 6 Lower Body Dressing (FIM): 5 (SBA to don pants, underwear, and socks while at bed level with AE.) Lower Body Dressing (QC): 4 On/Off Footwear (QC): 4 Toileting (FIM): 6 Toileting Hygiene (QC): 6 Transfers (B, C, W/C) (FIM): 4 (Pt. requires assistance at times for control of right LE when transferring.) Toilet/Commode Transfer (FIM): 4 Toilet Transfer (QC): 4 Shower Transfer(FIM): 4 Other Treatment Pt. is able to independently self propel her wheelchair into therapy gym. OT raised mat to height of her bed at home, as pt. was concerned about being able to get into bed at home. Problem solved the best way to get into bed, as pt. is high and pt. is unable to bend right LE. OT placed chair in front of bed. Pt. was able to use gait belt around foot to lift foot and place on chair as she was sitting onto mat/bed. OT assisted slightly, but pt. able to do most of it. Pt. is educated that her S.O., who will be home with her, can assist with this too. Pt. seemed to feel more at ease after practicing this. Transferred back to room and completed shower/ADLs. Pt. able to shower and then transfer to bed via wheelchair. Completed full dressing task at bed level. Tolerated well. All needs met. Education OT Patient Education: Correct positioning, Modified ADL techniques, Progress toward Goal/Update tx plan, Purpose of tx/functional activities, Reviewed precautions, Rehab process, Transfer techniques, Use of adapted equipment Teaching Recipient: Patient Teaching Methods: Demonstration, Discussion Response to Teaching: Verbalize Understanding, Return Demonstration OT Short Term Goals Short Term Goals Time Frame: Oct 14, 2018 Bathing(FIM): 4 Lower Body Dressing(FIM): 3 Toileting(FIM): 3 Toilet/Commode Transfer(FIM): 4 Additional Short Term Goals: 1-Demonstrate ADL Tasks, 2-Verbalize Understanding , 3-ImproveStrength/Hafsa 1=Demonstrate adherence to instructed precautions during ADL tasks. 2=Patient will verbalize/demonstrate understanding of assistive devices/ modifications for ADL. 3=Patient will improve strength/tolerance for activity to enable patient to perform ADL's. OT Sleeping Car Service Attendant Goals Sleeping Car Service Attendant Goals Time Frame: Oct 28, 2018 Eating (FIM): 7 Eating (QC): 6 Groomin Oral Hygiene (QC): 6 Bathing(FIM): 5 Shower/Bathe Self (QC): 4 Upper Body Dressing(FIM): 6 Upper Body Dressing (QC): 6 Lower Body Dressing(FIM): 5 Lower Body Dressing (QC): 4 On/Off Footwear (QC): 5 Toileting(FIM): 5 Toileting Hygiene (QC): 5 Toilet/Commode Transfer(FIM): 5 Toilet/Commode Transfer (QC): 5 Additional Goals: 1-Demonstrate ADL Tasks, 2-Verbalize Understanding, 3- ImproveStrength/Hafsa 1=Demonstrate adherence to instructed precautions during ADL tasks. 2=Patient will verbalize/demonstrate understanding of assistive devices/ modifications for ADL. 3=Patient will improve strength/tolerance for activity to enable patient to perform ADL's. OT Education/Plan Problem List/Assessment Assessment: Decreased Activ Tolerance, Impaired I ADL's, Impaired Self-Care Skills Discharge Recommendations Plan/Recommendations: Continue POC Therapy D/C Recommendations: Home w/ Family Support Equpiment Recommendations-D/C: Extended Bath Bench, Hip Kit Treatment Plan/Plan of Care Treatment,Training & Education: Yes Patient would benefit from OT for education, treatment and training to promote independence in ADL's, mobility, safety and/or upper extremity function for ADL' s. Plan of Care: ADL Retraining, Functional Mobility, Group Exercise/Act as Ind, UE Funct Exercise/Act Treatment Duration: Oct 28, 2018 Frequency: At least 5 of 7 days/Wk (IRF) Estimated Hrs Per Day: 1.5 hours per day Agreement: Yes Rehab Potential: Good Time/GCodes Start Time: 09:30 Stop Time: 11:00 Total Time Billed (hr/min): 90 Billed Treatment Time 1, ADL x 6 SERAFIN LITTLE OT Oct 18, 2018 13:29
--- NOTE | 2018-10-18 16:28 | Physical Therapy Daily Note ---
PT Daily Note-Current Subjective Pt recliner in recliner with SO present for Family Training. Pt agrees to finish FIM scoring. Pain Numeric Pain Scale: 6 Location: Right, Left Location Body Site: Knee Pain Description: Ache, Tightness Mental Status Patient Orientation: Person, Place, Time, Situation Attachments: Other-See Comments (R knee immobilizer) Transfers Therapy Code Descriptions/Definitions Functional [place] Measure: 0=Not Assessed/NA 4=Minimal Assistance 1=Total Assistance 5=Supervision or Setup 2=Maximal Assistance 6=Modified [place] 3=Moderate Assistance 7=Complete [place] Therapy Quality Codes: 6 Independent with activity with or without an assistive device 5 Patient requires set up or clean up by helper. Patient completes activity by themselves 4 Supervision or touching assist (CGA). [place] provide cues , steadying assist 3 The helper provides less than half the effort to complete the activity 2 The helper provides more than half the effort to complete the activity 1 Dependent. The helper does all the effort to complete an activity 7 Patient refused to complete or attempt activity 9 The patient did not perform the activity before the current illness or injury 88 Not attempted due to Medical conditions or safety concerns Transfers (B, C, W/C) (FIM): 5 Scootin Rollin Roll Left to Right (QC): 5 Supine to/from Sit: 5 Sit to/from Stand: 5 Sit to Lying (QC): 5 Sit to Stand (QC): 5 Chair/Hsq-qe-Tofsr Xfer(QC): 5 Bed to/from Chair: 5 Car Transfer (QC): 5 Weight Bearing Right Lower Extremity: Right Weight Bearing/Tolerated Left Lower Extremity: Left Non Weight Bearing Gait Training Does the Patient Walk?: Yes Gait (FIM): 5 Distance (FIM): 3=150 ft Distance: 150' Walk 10 feet (QC): 5 Walk 50 ft with 2 Turns(QC): 5 Walk 150 ft (QC): 5 Walking 10ft/uneven surface-QC: 5 Gait Level of Assist: 5 Gait Persons Needed: 1 Gait Assistive Device: FWW Pt has swing through gait pattern. Wheelchair Training Does the Pt Use a Wheelchair?: Yes Wheelchair Distance: 5=420-98 ft Distance: 100' Wheelchair Level of Assist: 6 Wheel 50 ft with 2 turns (QC): 6 Type of Wheelchair: Manual Stair Training Stairs (FIM): 5 #of Steps: 6 1 Step (curb) (QC): 4 4 Steps (QC): 4 Stairs: Pattern: Hops Level of Assist: 4 Pt uses //bars when hopping onto single pink step x6. Pt leans heavily on UE. Treatments Pt demonstrates increased ambulation distance, walking across varying surface, single stair x6, car transfer and bed mobility for Family Training. Pt also uses restroom during tx. Pt returns to room to rest in bed at end of tx. Pt has all needs met. Assessment Current Status: Good Progress SO is helpful with what pt is needing assistance on and report being a Personal Care Box Maker Wood for family member previously and has an understanding of W/ C as well as transfers and mobility needs. PT Short Term Goals Short Term Goals Time Frame: Oct 14, 2018 Gait (FIM): 1 Distance (FIM): 1=up to 49 ft Gait Distance Comment: 25' Gait Level of Assist: 4 Gait Assistive Device: FWW Wheelchair (FIM): 6 Wheelchair distance (FIM): 3=150 ft Wheelchair Distance: 150' Wheelchair Level of Assist: 6 Stairs (FIM): 2 # of Steps: 2 Stairs Level of Assist: 4 PT Animal Control Officer Goals Animal Control Officer Goals PT Animal Control Officer Goals Time Frame: Oct 29, 2018 Transfers (B,C,W/C) (FIM): 5 Sit to Lying (QC): 5 Lying-Sitting on Side/Bed(QC): 5 Sit to Stand (QC): 5 Rollin Roll Left to Right (QC): 5 Chair/Xkf-jw-Ozsbi Xfer(QC): 5 Car Transfer (QC): 5 Does the Patient Walk: Yes Gait (FIM): 1 Gait distance (FIM): 1=up to 49 ft Distance: 30' Walk 10 feet (QC): 5 Walk 10ft-Uneven Surface(QC): 5 Walk 50ft with 2 Turns (QC): 88 Walk 150 ft (QC): 88 Gait Level of Assist: 5 Gait Assistive Device: FWW Wheelchair (FIM): 5 Wheelchair distance (FIM): 3=150 ft Distance: 150' Wheelchair Level of Assist: 5 Wheel 50 feet with 2 turns (QC: 5 PT Plan Problem List Problem List: Activity Tolerance, Functional Strength, Safety Treatment/Plan Treatment Plan: Continue Plan of Care Treatment Plan: Bed Mobility, Concurrent Therapy, Education, Functional Activity Hafsa, Functional Strength, Group Therapy, Gait, Safety, Therapeutic Exercise, Transfers Treatment Duration: Oct 28, 2018 Frequency: At least 5 of 7 days/Wk (IRF) Estimated Hrs Per Day: 1.5 hours per day Patient and/or Family Agrees t: Yes Safety Risks/Education Patient Education: Gait Training, Transfer Techniques, Correct Positioning, W/ C Management, Safety Issues Teaching Recipient: Patient, Significant Other Teaching Methods: Demonstration, Discussion Response to Teaching: Verbalize Understanding Time/GCodes Time In: 1400 Time Out: 1450 Total Billed Treatment Time: 50 Total Billed Treatment 1, GT (20m) & FA x2 (30m) G Codes Necessary: MANJULA Smith PEDIATRICS TEACHER Oct 18, 2018 16:28
[2018-10-18 17:11] VITALS: BP 130/81
[2018-10-18] MEDS: ALPRAZolam 0.25 MG (XANAX) TAB PO PRN (20:23)
[2018-10-18] MEDS: POLYETHYLENE GLYCOL 17 GM (MIRALAX) PACK PO SCH (20:24)
[2018-10-19] MEDS: oxyCODONE/APAP 5/325MG (PERCOCET 5) TABLET PO PRN (04:36)
[2018-10-19 05:02] VITALS: BP 113/73
[2018-10-19] MEDS ORDERED: SENN-20 PO (08:28)
[2018-10-19] MEDS ORDERED: Guaifenesin/Codeine PO (08:28)
[2018-10-19] MEDS ORDERED: ALPR0.254 PO (08:28)
[2018-10-19] MEDS ORDERED: DICL100G18 TOP (08:28)
[2018-10-19] MEDS ORDERED: ONDA4TAB11 PO (08:28)
[2018-10-19] MEDS ORDERED: METH750T3 PO (08:28)
[2018-10-19] MEDS ORDERED: PANT40TA3 PO (08:28)
[2018-10-19] MEDS ORDERED: OXYC1TAB87 PO (08:28)
[2018-10-19] MEDS ORDERED: ASPI-999 PO (08:28)
[2018-10-19] MEDS ORDERED: APIX2.5T PO (08:28)
[2018-10-19] MEDS ORDERED: LORA10TA7 PO (08:28)
--- NOTE | 2018-10-19 08:31 | D/C HH Face to Face Order ---
D/C Face to Face Orders Instructions for Patient Via [facility], Patient Instructions/FollowUp: [facility] Ortho appointments as scheduled Physician to follow Patient: PCP Discharge Diet for Home: No Restrictions Patient Problems: Left calcaneous fracture Right patella fracture DVT risk placed on Eliquis 2.5mg PO BID for 4 weeks Goals for Patient: Return to independent living Patient Data-Allergies,Ht & Wt Patient Allergies: Coded Allergies: Sulfa (Sulfonamide Antibiotics) (Verified Allergy, Unknown, 10/06/18) Uncoded Allergies: steroids (Allergy, Unknown, 10/06/18) pt states she became numb & had trouble breathing after steroid injection aspi (Adverse Reaction, Unknown, vomiting, stomach upset, although states that she still take, 10/06/18) pt reports GI upset when she takes it, but states that she still takes prn "heart palpitations" Height (Feet): 5 Height (Inches): 2.00 Weight (Pounds): 130 Weight (Ounces): 1.0 Home Health Need/Face to Face Date of Face to Face: Oct 19, 2018 Clinical Findings: Generalized weakness and fatigue, Muscle weakness, Unsteady gait I have seen Pt [id number]: Yes Discharged To: Home Diagnosis/Conditions: Left calcaneous fracture Right patella fracture DVT risk placed on Eliquis 2.5mg PO BID for 4 weeks Patient is Homebound due to: Fred fall risk due to instabilty, Non-weight bearing, Pain w/ambulation Homebound Status Due to the above stated illness, injury or surgical procedure (medical condition or diagnosis) and associated clinical findings, the patient is homebound because of his/her inability to leave home except with aid of a supportive device and/or person AND leaving the home requires a considerable and taxing effort or is medically contraindicated. Pt req the following assistanc: Walker [facility] Nursing Orders Home Health Services Order: Nursing Services, Machine Precision Engraver-Evaluate & Treat, Physical Therapy-Evaluate & Treat Certify Stmt I certify that this patient is under my care and that I, a nurse practitioner or a physician; a funeral director's assistant working with me, had a face to face encounter that - meets the physician face to face encounter requirements with this patient as dated. JOSEPH AKINS DO Oct 19, 2018 08:31
--- NOTE | 2018-10-19 08:32 | Discharge Summary ---
Diagnosis/Chief Complaint Date of Admission Oct 06, 2018 at 17:30 Date of Discharge Discharge Date: Oct 19, 2018 Discharge Diagnosis Assessment: Left calcaneal fracture and non-weight bearing on left leg with right patellar fracture Smoker Brittle bones per patient Constipation resolved Episode of chest pain as she has at home consistent with panic attack Xanax helped resolve and will allow baby aspirin daily for these episodes Cough Somatic complaints Plan: Pain meds Lovenox for DVT px then will change to Eliquis at DC since PO form BM regimen IS use Needs DEXA as outpt Robitussin AC DC today on HH Discharge Summary Discharge Physical Examination Allergies: Coded Allergies: Sulfa (Sulfonamide Antibiotics) (Verified Allergy, Unknown, 10/06/18) Uncoded Allergies: steroids (Allergy, Unknown, 10/06/18) pt states she became numb & had trouble breathing after steroid injection aspi (Adverse Reaction, Unknown, vomiting, stomach upset, although states that she still take, 10/06/18) pt reports GI upset when she takes it, but states that she still takes prn "heart palpitations" Vitals & I&Os Vital Signs Date Time Temp Pulse Resp B/P (MAP) Pulse Ox O2 Delivery O2 Flow Rate FiO2 10/19/18 05:02 97.2 80 18 113/73 (86) 97 Room Air Hospital Course Was the Problem List Reviewed?: Yes Hospital course: Patient had an uneventful hospital course for 13 days in inpatient rehabilitation. She was admitted after transfer due to left calcaneus fracture and right patella fracture both in braces in need of therapy to navigate ambulation. Patient was maintained on DVT prophylaxis with Lovenox and at discharge that was changed to Eliquis 2.5 MG twice daily. A coupon was given for full 1 month supply. All assistive devices were ordered and along with pain medication and close follow-up at . Incentive spirometer was maintained patient was deemed stable for discharge after participating in all therapy as required patient was in improved condition was able to transfer well and will have close follow-up with orthopedic surgery. Labs (last 24 hrs) Laboratory Tests 10/08/18 05:43: White Blood Count 5.7, Red Blood Count 3.84L, Hemoglobin 11.7, Hematocrit 37, Mean Corpuscular Volume 95, Mean Corpuscular Hemoglobin 31, Mean Corpuscular Hemoglobin Concent 32, Red Cell Distribution Width 12.9, Platelet Count 273, Mean Platelet Volume 11.8H, Neutrophils (%) (Auto) 53, Lymphocytes (%) (Auto) 29 , Monocytes (%) (Auto) 15H, Eosinophils (%) (Auto) 3, Basophils (%) (Auto) 1, Neutrophils # (Auto) 3.0, Lymphocytes # (Auto) 1.6, Monocytes # (Auto) 0.9, Eosinophils # (Auto) 0.2, Basophils # (Auto) 0.0, Sodium Level 140, Potassium Level 4.1, Chloride Level 103, Carbon Dioxide Level 28, Anion Gap 9, Blood Urea Nitrogen 10, Creatinine 0.86, Estimat Glomerular Filtration Rate > 60, BUN/ Creatinine Ratio 12, Glucose Level 96, Calcium Level 9.3, Corrected Calcium 9.8 , Total Bilirubin 0.4, Aspartate Amino Transf (AST/SGOT) 14, Alanine Aminotransferase (ALT/SGPT) < 6, Alkaline Phosphatase 64, Total Protein 6.6, Albumin 3.4 Pending Labs Laboratory Tests 10/08/18 05:43: White Blood Count 5.7, Red Blood Count 3.84, Hemoglobin 11.7, Hematocrit 37, Mean Corpuscular Volume 95, Mean Corpuscular Hemoglobin 31, Mean Corpuscular Hemoglobin Concent 32, Red Cell Distribution Width 12.9, Platelet Count 273, Mean Platelet Volume 11.8, Neutrophils (%) (Auto) 53, Lymphocytes (%) (Auto) 29 , Monocytes (%) (Auto) 15, Eosinophils (%) (Auto) 3, Basophils (%) (Auto) 1, Neutrophils # (Auto) 3.0, Lymphocytes # (Auto) 1.6, Monocytes # (Auto) 0.9, Eosinophils # (Auto) 0.2, Basophils # (Auto) 0.0, Sodium Level 140, Potassium Level 4.1, Chloride Level 103, Carbon Dioxide Level 28, Anion Gap 9, Blood Urea Nitrogen 10, Creatinine 0.86, Estimat Glomerular Filtration Rate > 60, BUN/ Creatinine Ratio 12, Glucose Level 96, Calcium Level 9.3, Corrected Calcium 9.8 , Total Bilirubin 0.4, Aspartate Amino Transf (AST/SGOT) 14, Alanine Aminotransferase (ALT/SGPT) < 6, Alkaline Phosphatase 64, Total Protein 6.6, Albumin 3.4 Discharge Home Medications: Active Scripts Active Eliquis (Apixaban) 2.5 Mg Tablet 2.5 Mg PO BID Pantoprazole Sodium 40 Mg Tablet.dr 40 Mg PO DAILY Ondansetron Odt (Ondansetron) 4 Mg Tab.rapdis 4 Mg PO Q6H PRN Senna-Time S Tablet (Sennosides/Docusate Sodium) 1 Each Tablet 1 Ea PO BID [Guaifenesin/Codeine] 10 ML Syrp 5 Ml PO Q4H PRN Alprazolam 0.25 Mg Tablet 0.25 Mg PO Q8H PRN Voltaren (Diclofenac Sodium) 100 Gm Gel..gram. 0 Gm TOP BID PRN Aspirin 81 Mg Tab.chew 81 Mg PO DAILY PRN Methocarbamol 750 Mg Tablet 750 Mg PO TID Loratadine 10 Mg Tablet 10 Mg PO DAILY Percocet 5-325 mg Tablet (Oxycodone HCl/Acetaminophen) 1 Each Tablet 1 Tab PO Q4H PRN Reported Benadryl Allergy (Diphenhydramine HCl) 25 Mg Tablet 25 Mg PO BID PRN Instructions to patient/family Please see electronic discharge instructions given to patient. Diagnosis/Problems Diagnosis/Problems (1) Left calcaneal fracture Status: Acute Qualifiers: (2) Brittle bone disease Status: Chronic (3) Patella fracture Status: Acute Qualifiers: (4) Constipation Status: Acute Qualifiers: Qualified Codes: K59.01 - Slow transit constipation (5) DVT prophylaxis Status: Acute (6) Cough Status: Acute (7) Somatic complaints, multiple Status: Acute (8) Smoker Status: Chronic Clinical Quality Measures DVT/VTE Risk/Contraindication: Risk Factor Score Per Nursin RFS Level Per Nursing on Admit: 4+=Very High JOSEPH AKINS DO Oct 19, 2018 08:32
[2018-10-19] MEDS: PANTOPRAZOLE 40 MG (PROTONIX) TAB PO SCH (08:40)
[2018-10-19] MEDS: ENOXAPARIN 40 MG/0.4 ML (LOVENOX) SYR SC SCH (08:40)
[2018-10-19] MEDS: SENNA W/DOCUSATE (SENOKOT S) TABLET PO SCH (08:40)
[2018-10-19] MEDS: METHOCARBAMOL 750 MG (ROBAXIN) TAB PO SCH ×2 (08:40→14:53)
[2018-10-19] MEDS: LORATADINE (CLARITIN) 10 MG TAB PO SCH (08:42)
[2018-10-19] MEDS: HYDROcodone/APAP 5 MG/325 MG (LORTAB) TAB PO PRN (08:42)
--- NOTE | 2018-10-19 08:44 | Therapy Team Discharge Summary ---
Therapy Discharge Summary Discharge Recommendations Date of Discharge Therapy D/C Recommendations: Home w/ Family Support Physical Therapy Patient came to rehab with L calcaneal fx, R patella fx. Left LE is NWB, right LE is WBAT but with a knee brace on locked into extension. Upon evaluation patient performs bed mobility with SBA, supine <-> sit with SBA, transfers with min assist, sit <-> stand with mod assist, car transfer min/mod assist, wheelchair 100' SBA, no gait at that time. Patient has been performing bed mobility and transfer training, balance and endurance training, functional strengthening, stair training, gait training, and education. Patient has made fair progress and has met all of her custodial goals. Now, patient performs bed mobility and transfers with SBA, car transfer SBA, ambulates 100' with a rolling walker with SBA (including 50' with at least 2 turns of 90 degrees), and can propel a manual wheelchair 150' with mod I. Patient is discharging from this facility today and will be discharged from PT at this time. Occupational Therapy Decreased Activ Tolerance, Impaired I ADL's, Impaired Self-Care Skills PT Administrative Resources Associate Goals Administrative Resources Associate Goals PT Administrative Resources Associate Goals Time Frame: Oct 29, 2018 Transfers (B,C,W/C) (FIM): 5 Roll Left to Right (QC): 5 Sit to Lying (QC): 5 Lying-Sitting on Side/Bed(QC): 5 Sit to Stand (QC): 5 Chair/Djf-zf-Lztyw Xfer(QC): 5 Car Transfer (QC): 5 Does the Patient Walk: Yes Gait (FIM): 1 Gait distance (FIM): 1=up to 49 ft Distance: 30' Walk 10 feet (QC): 5 Walk 10ft-Uneven Surface(QC): 5 Walk 50ft with 2 Turns (QC): 88 Walk 150 ft (QC): 88 Gait Level of Assist: 5 Gait Assistive Device: FWW Wheelchair (FIM): 5 Wheelchair distance (FIM): 3=150 ft Distance: 150' Wheelchair Level of Assist: 5 Wheel 50 feet with 2 turns (QC: 5 OT Administrative Resources Associate Goals Care Home Goals Time Frame: Oct 28, 2018 Eating (FIM): 7 Eating (QC): 6 Oral Hygiene (QC): 6 Grooming(FIM): 6 Bathing(FIM): 5 Shower/Bathe Self (QC): 4 Upper Body Dressing(FIM): 6 Upper Body Dressing (QC): 6 Lower Body Dressing(FIM): 5 Lower Body Dressing (QC): 4 On/Off Footwear (QC): 5 Toileting(FIM): 5 Toileting Hygiene (QC): 5 Toilet/Commode Transfer(FIM): 5 Toilet/Commode Transfer (QC): 5 Additional Goals: 1-Demonstrate ADL Tasks, 2-Verbalize Understanding, 3- ImproveStrength/Hafsa 1=Demonstrate adherence to instructed precautions during ADL tasks. 2=Patient will verbalize/demonstrate understanding of assistive devices/ modifications for ADL. 3=Patient will improve strength/tolerance for activity to enable patient to perform ADL's. SHERON WALL PT Oct 19, 2018 08:44
--- NOTE | 2018-10-19 13:24 | Therapy Team Discharge Summary ---
Therapy Discharge Summary Discharge Recommendations Date of Discharge 10-19-18 Therapy D/C Recommendations: Home w/ Family Support Occupational Therapy Pt. has been seen by occupational therapy to increase overall strength and independence. Pt. has met most ADL goals. Does require assistance to position left LE when transferring. Pt. will discharge with significant other and other family member. Pt. and significant other have been trained on functional mobility tasks. Pt. would benefit from hip kit, tub transfer bench, wheelchair , and walker. Decreased Activ Tolerance, Impaired I ADL's, Impaired Self-Care Skills PT Chief Internal Auditor Goals Chief Internal Auditor Goals PT Alf Goals Time Frame: Oct 29, 2018 Transfers (B,C,W/C) (FIM): 5 Roll Left to Right (QC): 5 Sit to Lying (QC): 5 Lying-Sitting on Side/Bed(QC): 5 Sit to Stand (QC): 5 Chair/Ken-wg-Wqdbi Xfer(QC): 5 Car Transfer (QC): 5 Does the Patient Walk: Yes Gait (FIM): 1 Gait distance (FIM): 1=up to 49 ft Distance: 30' Walk 10 feet (QC): 5 Walk 10ft-Uneven Surface(QC): 5 Walk 50ft with 2 Turns (QC): 88 Walk 150 ft (QC): 88 Gait Level of Assist: 5 Gait Assistive Device: FWW Wheelchair (FIM): 5 Wheelchair distance (FIM): 3=150 ft Distance: 150' Wheelchair Level of Assist: 5 Wheel 50 feet with 2 turns (QC: 5 OT Chief Internal Auditor Goals Chief Internal Auditor Goals Time Frame: Oct 28, 2018 Eating (FIM): 7 (met) Eating (QC): 6 (met) Oral Hygiene (QC): 6 (met) Grooming(FIM): 6 (met) Bathing(FIM): 5 (met) Shower/Bathe Self (QC): 4 (met) Upper Body Dressing(FIM): 6 (met) Upper Body Dressing (QC): 6 (met) Lower Body Dressing(FIM): 5 (met) Lower Body Dressing (QC): 4 (met) On/Off Footwear (QC): 5 (not met) Toileting(FIM): 5 (met) Toileting Hygiene (QC): 5 (met) Toilet/Commode Transfer(FIM): 5 (met) Toilet/Commode Transfer (QC): 5 (not met) Additional Goals: 1-Demonstrate ADL Tasks, 2-Verbalize Understanding, 3- ImproveStrength/Hafsa 1=Demonstrate adherence to instructed precautions during ADL tasks. 2=Patient will verbalize/demonstrate understanding of assistive devices/ modifications for ADL. 3=Patient will improve strength/tolerance for activity to enable patient to perform ADL's. SERAFIN LITTLE OT Oct 19, 2018 13:23
--- NOTE | 2018-10-19 13:30 | NUR ---
MONIQUE WELSH demonstrates understanding of discharge instructions and accurately returns instructions upon questioning. Copy of Post-Discharge Instructions given to pt. MONIQUE WELSH is not able to manage continuing needs after discharge and will be receiving [facility]. Patients belongings returned to . Patient discharged from [facility] on 10-19-18 at 1330. MONIQUE WELSH left floor via , accompanied by . Follow up appts made and reviewed with pt.
[2018-10-19 15:08] VITALS: BP 113/73
--- NOTE | 2018-10-19 17:43 | NUR ---
Arrangements wire completed for pt 's discharge to home. Referral made to [facility] and [facility] for Wheelchair with elevated leg rests, Bedside commode, and Front wheel walker. Pt also provided prescription assistance and gas card assistance so she can keep her appts with the Orthopedic Service at [facility] tomorrow. She was instructed to contact [facility] for appt with a primary physician on Wednesday as the clinic unable to give appt. as the Clinic will be under new ownership on Wednesday. She voiced understanding. Advised pt and family to contact me for any further needs.
== END 2018-10-19 13:30 | disposition home health service (06) | DRG 561 ==
PROVIDERS: ADMIT Internal Medicine; ATTEND Internal Medicine
DX: S92.002D Unspecified fracture of left calcaneus, subsequent encounter for fracture with routine healing (principal); S82.001D Unspecified fracture of right patella, subsequent encounter for closed fracture with routine healing; F17.200 Nicotine dependence, unspecified, uncomplicated; M85.80 Other specified disorders of bone density and structure, unspecified site; K59.01 Slow transit constipation; G43.909 Migraine, unspecified, not intractable, without status migrainosus; W19.XXXD Unspecified fall, subsequent encounter; V89.2XXD Person injured in unspecified motor-vehicle accident, traffic, subsequent encounter; F41.0 Panic disorder [episodic paroxysmal anxiety]; F45.0 Somatization disorder
CPT/HCPCS: 36415; 80053; 85025; 93005

== ENCOUNTER 2021-09-03 16:21 | Emergency (ER) | payer SELFPAY ==
[~2021-09-03] VITALS: Ht 157.5 cm; Wt 46.5 kg
[~2021-09-03 16:21] MED LIST: ALPR.25T PO; APIX2.5T PO; ASPI-999 PO; DICL100G18 TOP; DIPH25TA65 PO; Guaifenesin/Codeine PO; LORA10TA7 PO; METH-732 PO; ONDA4TAB11 PO; OXYC1TAB87 PO; PANT40TA52 PO; SENN-20 PO
--- OUTSIDE RECORDS SUMMARY | 2021-09-03 16:26 | XMS REPORT | Clinical Summary ---
Author Author [facility] Organization [facility] Address Unknown Phone Unavailable Care Team Providers Care Buffer Chrome Name Role Phone No Pcp, Na PCP Unavailable Source Comments Some departments are not documenting in the electronic medical record. If you d o not see the information that you expected, contact Release of Information in [facility] Information Management department at [phone] for further assistan ce in locating additional records.[facility] Allergies Comments Active Allergy Reactions Severity Noted Date Aspirin STOMACH Low 07/26/2018 UPSET, VOMITING Steroids; pt states she became numb and had trouble breathing after steroid injections Unclassified Drug SHORTNESS OF Medium 10/04/2018 BREATH Sulfa (Sulfonamide ANAPHYLAXIS, High 07/26/2018 Antibiotics) DIZZINESS Medications End Date Status Medication Sig Dispensed Refills Start Date Active diphenhydrAMINE (BENADRYL Take 1 tablet 0 ALLERGY) 25 mg tablet by mouth twice daily as needed. Active loratadine (CLARITIN) 10 Take one 90 tablet 3 0 mg tablet tablet by 9 mouth daily. Active oxyCODONE/acetaminophen Take one 60 tablet 0 (PERCOCET; ENDOCET; tablet to two 9 ROXICET) 5/325 mg tablet tablets by mouth every 4-6 hours as needed Active methocarbamol (ROBAXIN) Take one 45 tablet 0 750 mg tablet tablet by 9 mouth three times daily. Active ALPRAZolam (XANAX) 0.25 Take 0.25 mg 0 mg tablet by mouth at bedtime as needed for Anxiety. Active aspirin EC 81 mg tablet Take 81 mg by 0 mouth daily. Take with food. Active apixaban (ELIQUIS PO) Take by 0 mouth. Active Problems Problem Noted Date Acute pain due to trauma 10/05/2018 Impaired mobility and ADLs 10/05/2018 Calcaneal fracture 10/04/2018 Closed fracture of left distal radius 07/26/2018 Overview: Formatting of this note might be differ ent from the original. ORIF 07/29/18 L ast Assessment & Plan: Formatting of this note might be differ ent from the original. Activity as tolerated. ROMAT. Fu on prn basis. Can obtain xrays while at another ortho appt if there is concerns. Resolved Problems Problem Noted Date Resolved Date Patella fracture 10/04/2018 01/02/2019 Surgical History Surgery Date Site/Laterality Comments HX APPENDECTOMY HYSTERECTOMY, VAGINAL 09/20/2000 - 09/19/2001 SHOULDER SURGERY rotator cuff PATELLA FRACTURE SURGERY 10/04/2018 Knee/Right OPEN TREATMENT PATELLAR FRACTURE WITH INTERNAL FIXATION performed by Jose Porras MD at [facility] Medical devices from this surgery are i n the Implants section. FOOT FRACTURE SURGERY 10/04/2018 Foot/Left SURGICAL FIXATION CALCANEAL FRACTURE WITH/ WITHOUT INTERNAL FIXATION performed by Norman London MD at [facility] Medical devices from this surgery are i n the Implants section. WRIST FRACTURE TX 07/29/2018 Wrist/Left OPEN TREATME NT WITH INTERNAL FIXATION DISTAL RADIAL EXTRA-ARTICULAR FRACTURE/ EPIPHY SEAL SEPARATION performed by Holley Resendiz MD at [facility] Medical devices from this surgery are i n the Implants section. Medical History Medical History Date Comments Arthritis Back pain Osteoporosis Fracture Heart abnormality irregular heart beat Family History Medical History Relation Name Comments Cancer Mother Relation Name Status Comments Mother Social History Date Tobacco Use Types Packs/Day Years Used Light Tobacco Smoker Cigarettes Smokeless Tobacco: Never Used Comments: once in a while Comments Alcohol Use Standard Drinks/Week only on ' Yes 0 (1 standard drink = 0.6 o z pure alcohol) Alcohol Habits Answer Date Recorded How often do you have a drink containing alcohol? No t asked How many drinks containing alcohol do you have on No t asked a typical day when you are drinking? How often do you have six or more drinks on one Not asked occasion? Comment: only on '10/05/2018 Sex Assigned at Date Recorded Not on file Last Filed Vital Signs Reading Time Taken Comments Vital Sign 153/88 01/02/2019 10:25 AM CDT Blood Pressure 95 01/02/2019 10:25 AM CDT Pulse 36.9 C (98.5 F) 10/06/2018 11:00 AM WHEEL AND PINION INSPECTOR Temperature - - Respiratory Rate 97% 10/06/2018 11:00 AM WHEEL AND PINION INSPECTOR Oxygen Saturation - - Inhaled Oxygen Concentration 53.5 kg (118 lb) 01/02/2019 10:25 AM CDT Weight 157.5 cm (5' 2") 01/02/2019 10:25 AM CDT Height 21.58 01/02/2019 10:25 AM CDT Body Mass Index Plan of Treatment Health Maintenance Due Date Last Done Comments HIV SCREENING 1978 DTAP/TDAP VACCINES (1 - 1981 Tdap) HEPATITIS C SCREENING 1981 PHYSICAL (COMPREHENSIVE) 1981 EXAM CERVICAL CANCER SCREENING 1984 BREAST CANCER SCREENING 2003 COLORECTAL CANCER 2013 SCREENING SHINGLES RECOMBINANT 2013 VACCINE (1 of 2) INFLUENZA VACCINE 04/20/2021 Implants Device Identifier Shelf Expiration Date Model / Serial / L ot Implanted Type Area Manufactur er 02.111.631 / 000 / 000 Plate Standard [id number] Stainless Left: Wrist SYNT HES Steel 2.4mm Screw 6x3 Hole - S000 SYNTHES Implanted: Qty: 1 on 07/29/2018 by Ralf Pinedo MD at [facility] [id number] / 000 / 000 Screw Bone 2.4mm 16mm Lcp Stainless Left: Wrist S YNTHES Steel T8 Radial Distal - S000 SYNTHES Implanted: Qty: 1 on 07/29/2018 by Ralf Pinedo MD at [facility] [id number] / 000 / 000 Screw Bone 2.4mm 4mm 12mm Lcp Left: Wrist SYNTHES Stainless Steel T8 Low Profile - SYNTHES S000 [place] Implanted: Qty: 2 on 07/29/2018 by Ralf Resendiz MD at [facility] 212.810 / 000 / 000 Screw Bone 2.4mm 10mm Lcp Stainless Left: Wrist S YNTHES Steel T8 Small Bone Self - S000 SYNTHES Implanted: Qty: 1 on 07/29/2018 by Ralf Pinedo MD at [facility] 212.816 / 000 / 000 Screw Bone 2.4mm 16mm Lcp Stainless Left: Wrist S YNTHES Steel T8 Small Bone Self - S000 SYNTHES Implanted: Qty: 1 on 07/29/2018 by Ralf Pinedo MD at [facility] 212.818 / 000 / 000 Screw Bone 2.4mm 18mm Lcp Stainless Left: Wrist S YNTHES Steel T8 Small Bone Self - S000 SYNTHES Implanted: Qty: 2 on 07/29/2018 by Ralf Pinedo MD at [facility] [id number] / N/A / N/A Wire 60.96cm .97mm Bead End Suture Right: Patella ZI MMER Stainless Steel - Sn/A RICHIE US Implanted: Qty: 2 on 10/04/2018 by Jose Porras MD at [facility] [id number] / NA / NA Screw Bone 3.5mm 2.5mm 55mm Left: Foot RICHIE Stainless Steel Small Hexagon - Sna RICHIE US Implanted: Qty: 2 on 10/04/2018 by Norman London MD at [facility] [id number] / NA / NA Screw Bone 3.5mm 2.5mm 40mm Left: Foot RICHIE Stainless Steel Small Hexagon - Sna RICHIE US Implanted: Qty: 1 on 10/04/2018 by Norman London MD at [facility] Results Not on filefrom Last 3 Months Advance Directives Patient Visual C Developer Explanation Type Date Recorded Advance 10/04/2018 5:50 AM Directive/DPOA Date Inactivated Comments Code Status Date Activated 10/06/2018 4:59 PM Full Code 10/04/2018 4:46 AM Provider has discussed Code Status No, more discussi on w/Patient or Family? needed Care Teams Start Date End Date Buffer Chrome Relationship Specialty 07/26/18 No Pcp, Na PCP - General
[2021-09-03] MEDS ORDERED: LORazepam INJ 2 MG/ML (ATIVAN) VIAL IVP STA (17:44)
[2021-09-03] MEDS ORDERED: PANTOPRAZOLE 40 MG (PROTONIX) VIAL IV STA (17:44)
[2021-09-03] MEDS ORDERED: KETOROLAC 30 MG/ML VIAL IVP STA (17:44)
[2021-09-03] MEDS ORDERED: NS IV 1000 ML 1,000 ML IV SCH (17:45)
[2021-09-03] MEDS ORDERED: ONDANSETRON 4 MG/2 ML (SDV) Z0FRAN IV ONE (17:45)
--- NOTE | 2021-09-03 17:57 | ED General ---
General Chief Complaint: Head/Cervical Problems Stated Complaint: HEAD PRESSURE Nursing Triage Note: Patient reports a headache and vomiting, states she vomited black emesis today that tasted metallic as well. Source of Information: Patient History of Present Illness Date Seen by Provider: Sep 03, 2021 Time Seen by Provider: 17:21 Initial Comments 55-year-old female presenting with complaints of headache to the top of her head and sinuses. She also is very anxious about her headache, feeling like her heart is beating irregularly, epigastric pain and burning pain into chest. She had thrown up some dark-colored coffee-ground appearing fluid today. She made her very anxious again about that. She denies having any fever but was having chills. She had a history of hypertension but does not take any medicines. She states that she does not have insurance so she has not been following with any providers. She denies any burning with urination or frequency of urination. Severity: Moderate Associated Systoms: No Chest Pain, No Cough, No Diaphoresis, No Fever/Chills; Headaches; No Loss of Appetite; Malaise, Nausea/Vomiting; No Seizure, No Shortness of Air, No Syncope, No Weakness Allergies and Home Medications Allergies Coded Allergies: Sulfa (Sulfonamide Antibiotics) (Verified Allergy, Unknown, 10/06/18) Uncoded Allergies: steroids (Allergy, Unknown, 10/06/18) pt states she became numb & had trouble breathing after steroid injection aspi (Adverse Reaction, Unknown, vomiting, stomach upset, although states that she still take, 10/06/18) pt reports GI upset when she takes it, but states that she still takes prn "heart palpitations" Patient Home Medication List Home Medication List Reviewed: Yes ALPRAZolam (Xanax Tablet) 0.25 Mg Tablet, 0.25 MG PO Q8H PRN for ANXIETY Prescribed by: JOSEPH AKINS on 10/19/18 0852 ALPRAZolam (ALPRAZolam) 0.25 Mg Tablet, 0.25 MG PO TID PRN for ANXIETY Prescribed by: GILSON JIMENES on 09/03/211856 Amoxicillin (Amoxicillin) 500 Mg Capsule, 500 MG PO TID Prescribed by: GILSON JIMENES on 09/03/211853 Apixaban (Eliquis) 2.5 Mg Tablet, 2.5 MG PO BID Prescribed by: JOSEPH AKINS on 10/19/18827 Aspirin (Aspirin) 81 Mg Tab.chew, 81 MG PO DAILY PRN for CHEST PAIN Prescribed by: JOSEPH AKINS on 10/19/18827 Diclofenac Sodium (Voltaren) 100 Gm Gel..gram., 0 GM TOP BID PRN for PAIN-MILD TO MODERATE Prescribed by: JOSEPH AKINS on 10/19/18827 Diphenhydramine HCl (Benadryl Allergy) 25 Mg Tablet, 25 MG PO BID PRN for ALLERGIES, (Reported) Entered as Reported by: ANJEL LEAVITT on 10/07/18 133 Loratadine (Loratadine) 10 Mg Tablet, 10 MG PO DAILY Prescribed by: JOSEPH AKINS on 10/19/18827 Methocarbamol (Methocarbamol) 750 Mg Tablet, 750 MG PO TID Prescribed by: JOSEPH AKINS on 10/19/18827 Omeprazole (Omeprazole) 20 Mg Capsule.dr, 20 MG PO DAILY Prescribed by: GILSON JIMENES on 09/03/211853 Ondansetron (Ondansetron Odt) 4 Mg Tab.rapdis, 4 MG PO Q6H PRN for NAUSEA/VOMITING Prescribed by: JOSEPH AKINS on 10/19/18827 Oxycodone HCl/Acetaminophen (Percocet 5-325 mg Tablet) 1 Each Tablet, 1 TAB PO Q4H PRN for PAIN-MODERATE Prescribed by: JOSEPH AKINS on 10/19/18827 Pantoprazole Sodium (Pantoprazole Sodium) 40 Mg Tablet.dr, 40 MG PO DAILY Prescribed by: JOSEPH AKINS on 10/19/18827 Sennosides/Docusate Sodium (Senna-Time S Tablet) 1 Each Tablet, 1 EA PO BID Prescribed by: JOSEPH AKINS on 10/19/18827 [Guaifenesin/Codeine] 10 ML SYRP, 5 ML PO Q4H PRN for COUGH Prescribed by: JOSEPH AKINS on 10/19/18827 Review of Systems Review of Systems Constitutional: No chills, No fever EENTM: nose congestion, other (Sinus drainage down the back of her throat); No ear pain, No blurred vision, No vision loss Respiratory: cough Cardiovascular: chest pain (Burning pain from her stomach going up into her chest) Gastrointestinal: abdominal pain (Epigastric burning pain going into her ches t); No constipation, No diarrhea; nausea, vomiting (Vomiting dark-colored fluid today) Genitourinary: No dysuria, No frequency Musculoskeletal: No back pain Skin: No change in color Psychiatric/Neurological: Anxiety, Headache; Denies Numbness, Denies Paresthesia Past Pvynwlj-Rfzqlg-Ttabcs Hx Patient Social History Tobacco Use?: No Substance use?: No Alcohol Use?: No Pt feels they are or have been: No Seasonal Allergies Seasonal Allergies: Yes Past Medical History Orthopedic Respiratory: No Currently Using CPAP: No Currently Using BIPAP: No Cardiac: No Neurological: No Genitourinary: No Gastrointestinal: No Osteoporosis, Arthritis, Fractures Endocrine: No HEENT: No Cancer: No Psychosocial: No Integumentary: No Blood Disorders: No Physical Exam Vital Signs Vital Signs - First Documented 09/03/21 16:43 Temp 36.9 Pulse 95 Resp 20 B/P (MAP) 125/71 (89) Pulse Ox 99 O2 Delivery Room Air Capillary Refill : Less Than 3 Seconds Height, Weight, BMI Height: 5'2.00" Weight: 130lbs. 1.0oz. 58.897672hl; 18.00 BMI Method: General Appearance: Anxious, Mild Distress, Thin HEENT: PERRL/EOMI, TMs Normal, Moist Mucous Membranes, Pharyngeal Erythema; No Photophobia, No Tonsillar Exudate Neck: Full Range of Motion, Normal Inspection, Non Tender, Supple Respiratory: Chest Non Tender, Lungs Clear, Normal Breath Sounds, No Accessory Muscle Use, No Respiratory Distress Cardiovascular: Regular Rate, Rhythm, Normal Peripheral Pulses Gastrointestinal: Normal Bowel Sounds, No Pulsatile Mass, Soft; No Distended, No Guarding, No Rebound; Tenderness (Mild epigastric tenderness to palpation) Rectal: Deferred Back: No CVA Tenderness, No Vertebral Tenderness Extremity: Normal Capillary Refill, Normal Inspection, No Pedal Edema Neurologic/Psychiatric: Alert, Oriented x3, No Motor/Sensory Deficits, crime victim specialist II- XII Norm as Tested Skin: Normal Color, Warm/Dry Progress/Results/Core Measures Suspected Sepsis SIRS Temperature: Pulse: 95 Respiratory Rate: 20 Laboratory Tests 09/03/21 18:20: White Blood Count 3.4L Blood Pressure 125 /71 Mean: 89 Laboratory Tests 12/15/21 18:20: Creatinine 0.90, INR Comment 1.0, Platelet Count 217, Total Bilirubin 0.3 Results/Orders Lab Results Laboratory Tests Test 09/03/21 18:20 Range/Units White Blood Count 3.4 L 4.3-11.0 10^3/uL Red Blood Count 4.22 3.80-5.11 10^6/uL Hemoglobin 12.9 11.5-16.0 g/dL Hematocrit 40 35-52 % Mean Corpuscular Volume 94 80-99 fL Mean Corpuscular Hemoglobin 31 25-34 pg Mean Corpuscular Hemoglobin Concent 33 32-36 g/dL Red Cell Distribution Width 12.5 10.0-14.5 % Platelet Count 217 130-400 10^3/uL Mean Platelet Volume 12.1 9.0-12.2 fL Immature Granulocyte % (Auto) 0 % Neutrophils (%) (Auto) 67 42-75 % Lymphocytes (%) (Auto) 14 12-44 % Monocytes (%) (Auto) 18 H 0-12 % Eosinophils (%) (Auto) 0 0-10 % Basophils (%) (Auto) 0 0-10 % Neutrophils # (Auto) 2.3 1.8-7.8 X 10^3 Lymphocytes # (Auto) 0.5 L 1.0-4.0 X 10^3 Monocytes # (Auto) 0.6 0.0-1.0 X 10^3 Eosinophils # (Auto) 0.0 0.0-0.3 10^3/uL Basophils # (Auto) 0.0 0.0-0.1 10^3/uL Immature Granulocyte # (Auto) 0.0 0.0-0.1 10^3/uL Neutrophils % (Manual) 69 % Lymphocytes % (Manual) 10 % Monocytes % (Manual) 16 % Eosinophils % (Manual) 0 % Basophils % (Manual) 1 % Band Neutrophils 4 % Prothrombin Time 13.1 12.2-14.7 SEC INR Comment 1.0 0.8-1.4 Activated Partial Thromboplast Time 30 24-35 SEC Sodium Level 134 L 135-145 MMOL/L Potassium Level 4.1 3.6-5.0 MMOL/L Chloride Level 97 L 98-107 MMOL/L Carbon Dioxide Level 27 21-32 MMOL/L Anion Gap 10 5-14 MMOL/L Blood Urea Nitrogen 11 7-18 MG/DL Creatinine 0.90 0.60-1.30 MG/DL Estimat Glomerular Filtration Rate 65 BUN/Creatinine Ratio 12 Glucose Level 118 H 70-105 MG/DL Calcium Level 9.3 8.5-10.1 MG/DL Corrected Calcium 9.1 8.5-10.1 MG/DL Total Bilirubin 0.3 0.1-1.0 MG/DL Aspartate Amino Transf (AST/SGOT) 17 5-34 U/L Alanine Aminotransferase (ALT/SGPT) 11 0-55 U/L Alkaline Phosphatase 65 40-136 U/L Troponin I < 0.30 <0.30 NG/ML C-Reactive Protein < 0.30 <0.50 MG/DL Total Protein 7.3 6.4-8.2 GM/DL Albumin 4.3 3.2-4.5 GM/DL Lipase 29 8-78 U/L Influenza Type A Antigen NEGATIVE NEGATIVE Influenza Type B Antigen NEGATIVE NEGATIVE My Orders Orders - GILSON JIMENES MD Monitor-Rhythm Ecg Trace Only (09/03/21 17:44) Ed Iv/Invasive Line Start (09/03/21 17:44) Cbc With Automated Diff (09/03/21 17:44) Comprehensive Metabolic Panel (09/03/21 17:44) Crp Fs (09/03/21 17:44) Troponin I Fs (09/03/21 17:44) Protime With Inr (09/03/21 17:44) Partial Thromboplastin Time (09/03/21 17:44) Ekg Tracing (09/03/21 17:44) Ns Iv 1000 Ml (Sodium Chloride 0.9%) (09/03/21 17:45) Covid 19 Inhouse Test (09/03/21 17:44) Influenza A & B Antigens (09/03/21 17:44) Pantoprazole Injection (Protonix Injecti (09/03/21 17:44) Lorazepam Injection (Ativan Injection) (09/03/21 17:44) Ketorolac Injection (Toradol Injection) (09/03/21 17:44) Lipase (09/03/21 17:44) Ondansetron Injection (Zofran Injectio (09/03/21 17:45) Ct Head/Sinuses Wo (09/03/21 17:44) Manual Differential (09/03/21 18:20) Ceftriaxone (Rocephin) (09/03/21 19:00) Medications Given in ED Current Medications Medications Dose Ordered Sig/Shannan Route Start Time Stop Time Status Last Admin Dose Admin Ondansetron HCl 4 mg ONCE ONCE IV 09/03/21 17:45 09/03/21 17:49 DC 09/03/21 18:11 4 MG Vital Signs/I&O 09/03/21 09/03/21 16:43 19:05 Temp 36.9 Pulse 95 84 Resp 20 14 B/P (MAP) 125/71 (89) 115/68 Pulse Ox 99 98 O2 Delivery Room Air Room Air Capillary Refill : Less Than 3 Seconds Blood Pressure Mean: 89 Progress Note #1: Progress Note With her having complaints of headache and pressure on the top of her head as well as sinuses will obtain a CT scan to look at her head and sinuses. Basic labs as well as check for influenza and Covid. With her report of vomiting up dark-colored fluid and concern for blood and coffee-ground emesis will give a dose of Protonix to help for gastritis. She does report a burning sensation into her chest at times. We will give IV fluids for hydration. She is very anxious so we will give 0.5 mg of Ativan IV as well. Toradol for her headache. Progress Note #2: Progress Note Electrocardiogram does not show any acute ischemic changes. Her blood pressure and heart rate have improved after initial treatment. Her CT scan of the head and sinuses does not show any acute bleeding or stroke. She does have some ethmoid sinus fluid and mucosal thickening. She also has what appears to be a small arachnoid cyst. CBC is normal without acute significant normality. Her influenza was negative. Pt resting comfortably in room when I went to review results with her and her mother. Advised that will try treating for sinusitis and GERD with gastritis and anxiety. Encouraged to establish care with [facility] clinic since she could be seen without insurance. Counseled to be off until Wednesday to give time to get Covid results. If it comes back positive she should be off until Sep 15. ECG Initial ECG Impression Date: Sep 03, 2021 Initial ECG Impression Time: 18:27 Initial ECG Rate: 87 Initial ECG Rhythm: Normal Sinus Initial ECG Comparisson: Unchanged Comment Normal sinus rhythm with a heart rate of 87 bpm. [place] interval [address] elevation. QT interval 381 ms with a QTc interval 459 ms. There is some artifact on the tracing. Overall it appears similar to prior tracings in the system. Diagnostic Imaging Diagonstic Imaging: CT Plain Films/CT/US/NM/MRI: head (and sinuses) Comments [facility]. [place], [place] NAME: MONIQUE WELSH [facility] REC#: [id number] PT STATUS: REG ER : 1965 PHYSICIAN: GILSON JIMENES MD ADMIT DATE: 09/03/21/ER FS Signed Date of Exam:09/03/21 CT HEAD/SINUSES WO PROCEDURE: CT head without contrast and CT sinuses with contrast. TECHNIQUE: Routine noncontrast CT images were obtained through the head and sinuses. Coronal reformats of the sinuses were also performed and reviewed. Auto Exposure Controls were utilized during the CT exam to meet ALARA standards for radiation dose reduction. INDICATION: Headache. Nausea and vomiting. Chronic sinusitis. COMPARISON: None. FINDINGS: CT HEAD: No large acute territorial ischemia, mass, or hemorrhage. No midline shift or mass effect. The ventricles, cortical sulci, and basilar cisterns are patent and unremarkable. A CSF signal focus is seen in the posterior fossa extending right of midline measuring 3.3 x 2.1 cm, favored to represent a arachnoid cyst. The calvarium is intact. CT sinuses: A small amount of retained secretions are seen in the left anterior ethmoid sinuses. The remainder of the paranasal sinuses are clear. The mastoid air cells are clear. No fluid levels are seen to suggest acute sinusitis. The nasal bone is slightly deviated to the left. No acute facial fractures are identified. The globes and orbits are symmetric and unremarkable. The cavernous sinuses have a normal CT appearance. IMPRESSION: 1. No large acute territorial ischemia, mass, or hemorrhage. 2. Small amount of retained secretions in the left anterior ethmoid sinuses. No fluid levels to suggest acute sinusitis. 3. Likely arachnoid cyst in the posterior fossa right of midline. Dictated by: Dictated on workstation # [id number] Dict: 09/03/21 1804 Trans: 09/03/21 1812 [facility] [id number] Interpreted by: JA MURGUIA DO Electronically signed by: JA MURGUIA DO 09/03/211812 Reviewed: Reviewed by Me Departure Impression Primary Impression: Ethmoidal sinusitis Qualified Codes: J01.20 - Acute ethmoidal sinusitis, unspecified Additional Impressions: GERD with esophagitis Qualified Codes: K21.00 - Gastro-esophageal reflux disease with esophagitis, without bleeding Heart palpitations Anxiety Arachnoid cyst Disposition: HOME, SELF-CARE Condition: Stable Departure-Patient Inst. Decision time for Depature: 18:55 Referrals: NO,LOCAL PHYSICIAN (PCP) Primary Care Physician [facility] Patient Instructions: Acid Reflux, Adult and Adolescent ED, Anxiety, Adult ED, Dyspepsia (DC), Palpitations ED, Sinusitis, Adult ED Add. Discharge Instructions: You could call the [facility] clinic at [phone]. They have special funding and are set up to see patients without insurance as well as patients that do have insurance. Take the medicine for sinus pressure and headache. Take the medicine to help with stomach irritation and gastritis. Stay well hydrated and get plenty of rest. You should stay quarantined until you have negative Covid test result. The test from [facility] will come back in 12 to 24 hours and you will get a call if it comes back positive. All discharge instructions reviewed with patient and/or family. Voiced understanding. Scripts ALPRAZolam (ALPRAZolam) 0.25 Mg Tablet 0.25 MG PO TID PRN for ANXIETY for 5 Days, #15 TAB 0 Refills Prov: GILSON JIMENES MD 09/03/21 Omeprazole (Omeprazole) 20 Mg Capsule.dr 20 MG PO DAILY for GERD for 30 Days, #30 CAP 0 Refills Prov: GILSON JIMENES MD 09/03/21 Amoxicillin (Amoxicillin) 500 Mg Capsule 500 MG PO TID for sinusitis for 10 Days, #30 CAP 0 Refills Prov: GILSON JIMENES MD 09/03/21 Work/School Note: Work Release Form Date Seen in the Emergency Department: Sep 03, 2021 Return to Work: Sep 05, 2021 Restrictions: Return-No Fever (24hrs) Other Restrictions Listed Below: If Covid Neg. return Sep 05. If Pos. return Sep 15. GILSON JIMENES MD Sep 03, 2021 17:57
--- NOTE | 2021-09-03 18:08 | Diagnostic Imaging Report ---
PROCEDURE: CT head without contrast and CT sinuses with contrast. TECHNIQUE: Routine noncontrast CT images were obtained through the head and sinuses. Coronal reformats of the sinuses were also performed and reviewed. Auto Exposure Controls were utilized during the CT exam to meet ALARA standards for radiation dose reduction. INDICATION: Headache. Nausea and vomiting. Chronic sinusitis. COMPARISON: None. FINDINGS: CT HEAD: No large acute territorial ischemia, mass, or hemorrhage. No midline shift or mass effect. The ventricles, cortical sulci, and basilar cisterns are patent and unremarkable. A CSF signal focus is seen in the posterior fossa extending right of midline measuring 3.3 x 2.1 cm, favored to represent a arachnoid cyst. The calvarium is intact. CT sinuses: A small amount of retained secretions are seen in the left anterior ethmoid sinuses. The remainder of the paranasal sinuses are clear. The mastoid air cells are clear. No fluid levels are seen to suggest acute sinusitis. The nasal bone is slightly deviated to the left. No acute facial fractures are identified. The globes and orbits are symmetric and unremarkable. The cavernous sinuses have a normal CT appearance. IMPRESSION: 1. No large acute territorial ischemia, mass, or hemorrhage. 2. Small amount of retained secretions in the left anterior ethmoid sinuses. No fluid levels to suggest acute sinusitis. 3. Likely arachnoid cyst in the posterior fossa right of midline. Dictated by: Dictated on workstation # [id number]
[2021-09-03 18:34] LABS: BASOPHILS % (AUTO) 0 % (0-10); EOSINOPHILS % (AUTO) 0 % (0-10); HEMATOCRIT 40 % (35-52); HEMOGLOBIN 12.9 g/dL (11.5-16.0); LYMPHOCYTES % (AUTO) 14 % (12-44); MEAN CORPUSCULAR HEMOGLOBIN 31 pg (25-34); MEAN CORPUSCULAR HGB CONC 33 g/dL (32-36); MEAN CORPUSCULAR VOLUME 94 fL (80-99); MEAN PLATELET VOLUME 12.1 fL (9.0-12.2); MONOCYTES % (AUTO) 18 % (0-12); NEUTROPHILS % (AUTO) 67 % (42-75); PLATELET COUNT 217 10^3/uL (130-400); WHITE BLOOD COUNT 3.4 10^3/uL (4.3-11.0)
[2021-09-03 18:35] LABS: LYMPHOCYTES # (AUTO) 0.5 X 10^3 (1.0-4.0); MONOCYTES # (AUTO) 0.6 X 10^3 (0.0-1.0); NEUTROPHILS # (AUTO) 2.3 X 10^3 (1.8-7.8)
[2021-09-03 18:38] LABS: PROTHROMBIN TIME PATIENT 13.1 SEC (12.2-14.7)
[2021-09-03 18:48] LABS: BUN/CREATININE RATIO 12; CARBON DIOXIDE 27 MMOL/L (21-32); CHLORIDE 97 MMOL/L (98-107); GFR ESTIMATED 65; GLUCOSE 118 MG/DL (70-105); POTASSIUM 4.1 MMOL/L (3.6-5.0); SODIUM 134 MMOL/L (135-145)
[2021-09-03 18:49] LABS: ALANINE AMINOTRANSFERASE 11 U/L (0-55); ALBUMIN 4.3 GM/DL (3.2-4.5); ALKALINE PHOSPHATASE 65 U/L (40-136); BILIRUBIN,TOTAL 0.3 MG/DL (0.1-1.0); CALCIUM 9.3 MG/DL (8.5-10.1); TOTAL PROTEIN 7.3 GM/DL (6.4-8.2)
[2021-09-03] MEDS ORDERED: OMEP20CA18 PO (18:54)
[2021-09-03] MEDS ORDERED: AMOX500C2 PO (18:54)
[2021-09-03] MEDS ORDERED: ALPR0.254 PO (18:56)
[2021-09-03] MEDS ORDERED: cefTRIAXone 1,000 MG in WATER (STERILE) FOR INJECTION 10 ML IV ONE (19:00)
[2021-09-03 19:03] LABS: BAND NEUTROPHILS 4 %; BASOPHILS % (MANUAL) 1 %; EOSINOPHILS % (MANUAL) 0 %; LYMPHOCYTES % (MANUAL) 10 %; MONOCYTES % (MANUAL) 16 %; NEUTROPHILS % (MANUAL) 69 %
[2021-09-03 19:05] VITALS: BP 115/68
== END 2021-09-03 19:05 | disposition home or self-care (01) ==
LOC: EDUNIT# 16:21 → ER FS 16:23
DX: J01.20 Acute ethmoidal sinusitis, unspecified (principal); F41.9 Anxiety disorder, unspecified; G93.0 Cerebral cysts; K21.00 Gastro-esophageal reflux disease with esophagitis, without bleeding; I10 Essential (primary) hypertension; Z20.822 Contact with and (suspected) exposure to COVID-19; Z88.2 Allergy status to sulfonamides; Z79.01 Long term (current) use of anticoagulants; Z79.82 Long term (current) use of aspirin; Z79.899 Other long term (current) drug therapy
CPT/HCPCS: 36415; 70450; 70486; 80053; 83690; 84484; 85007; 85027; 85610; 85730; 86141; 87636; 87804; 93005; 93041

== ENCOUNTER 2021-10-16 18:17 | Emergency (ER) | payer OTHER ==
[~2021-10-16] VITALS: Ht 157 cm; Wt 50.0 kg
[~2021-10-16 18:17] MED LIST changes: +ALPR0.254 PO; +AMOX500C2 PO; +OMEP20CA18 PO
--- NOTE | 2021-10-16 18:37 | Diagnostic Imaging Report ---
INDICATION: Punching injury, pain. FINDINGS: There is anterior angulation of a boxer's fracture deformity of the distal neck of the fifth metacarpal. There is bony demineralization suspected underlying, correlate for osteoporosis. There are degenerative changes to the wrist and carpus. No other fracture found. IMPRESSION: Angulated extra-articular boxer's fracture deformity of the distal neck of the fifth metacarpal. Underlying bony demineralization is suspected. Dictated by: Dictated on workstation # [id number]
[2021-10-16] MEDS ORDERED: TRAM50TA3 PO (19:17)
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
[2021-10-16 19:55] VITALS: BP 136/92
== END 2021-10-16 19:55 | disposition home or self-care (01) ==
LOC: EDUNIT# 18:17 → ER FS 18:19
DX: S62.336A Displaced fracture of neck of fifth metacarpal bone, right hand, initial encounter for closed fracture (principal); Z79.01 Long term (current) use of anticoagulants; Z79.82 Long term (current) use of aspirin; W22.01XA Walked into wall, initial encounter
CPT/HCPCS: 29125; 73130

== ENCOUNTER → 2021-10-29 | Outpatient (CLI) | payer OTHER ==
[~2021-10-29] MED LIST changes: +TRAM50TA3 PO
--- NOTE | 2021-10-29 09:30 | Diagnostic Imaging Report ---
INDICATION: Follow-up 5th metacarpal fracture. TIME OF EXAM: 9:06 AM Correlation is made with prior radiograph from 10/16/2021. Fracture involving the distal 5th metacarpal is again noted with slight volar angulation of the distal fracture fragment. Overall alignment appears stable. Fracture line remains visible. No significant callus formation is seen at this time. Remaining metacarpals and phalanges are intact. Carpus unremarkable. IMPRESSION: Angulated distal 5th metacarpal fracture, similar in appearance to examination from 10/16/2021. Dictated by: Dictated on workstation # [id number]
== END ==
LOC: RAD FS 08:49
PROVIDERS: ATTEND Nurse Practitioner
DX: S62.336D Displaced fracture of neck of fifth metacarpal bone, right hand, subsequent encounter for fracture with routine healing (principal); X58.XXXD Exposure to other specified factors, subsequent encounter
CPT/HCPCS: 73130

== ENCOUNTER → 2021-11-12 | Outpatient (CLI) | payer OTHER ==
--- NOTE | 2021-11-12 10:45 | Diagnostic Imaging Report ---
INDICATION: Followup fracture. COMPARISON: 10/29/2021. FINDINGS: Three radiographic views of the right hand were obtained. Again identified is the nonacute partially healed, mildly angulated fracture of the distal 5th metacarpal. This has a stable appearance compared to the prior exam. No new acute fracture or dislocation in the right hand is seen. Joint spaces are intact. No unexpected radiopaque foreign bodies are seen. IMPRESSION: 1. Stable partially healed nonacute fracture of the 5th metacarpal. 2. No new acute abnormality of the right hand. Dictated by: Dictated on workstation # [id number]
== END ==
LOC: RAD FS 09:56
PROVIDERS: ATTEND Nurse Practitioner
DX: S62.336D Displaced fracture of neck of fifth metacarpal bone, right hand, subsequent encounter for fracture with routine healing (principal); X58.XXXD Exposure to other specified factors, subsequent encounter
CPT/HCPCS: 73130

== ENCOUNTER → 2021-12-08 | Outpatient (CLI) | payer OTHER ==
--- NOTE | 2021-12-08 13:45 | Diagnostic Imaging Report ---
Indication: Right hand fracture, followup. Time Of Exam: 1:36 PM Correlation is made with prior right hand radiographs from 11/12/2021. Healing distal 5th metacarpal fractures again noted. There is some volar angulation of the distal fracture fragment, similar to prior. No new fractures seen. The remaining metacarpals and phalanges are intact. Carpus is unremarkable. Impression: Stable, healing and mildly angulated distal 5th metacarpal fracture. Dictated by: Dictated on workstation # [id number]
== END ==
LOC: RAD FS 13:24
PROVIDERS: ATTEND Nurse Practitioner
DX: S62.336D Displaced fracture of neck of fifth metacarpal bone, right hand, subsequent encounter for fracture with routine healing (principal); X58.XXXD Exposure to other specified factors, subsequent encounter
CPT/HCPCS: 73130

== ENCOUNTER 2022-03-24 18:22 | Emergency (ER) | payer OTHER ==
[~2022-03-24] VITALS: Ht 157.4 cm; Wt 48.9 kg
[2022-03-24 18:24] VITALS: BP 132/78
[2022-03-24] MEDS ORDERED: BUPIVACAINE 0.5% 30 ML (SENSORCAINE) VIAL ONE (18:35)
[2022-03-24] MEDS: LIDOCAINE 1% INJ 50 ML (XYLOCAINE) VIAL ONE ×2 (18:39→18:55)
[2022-03-24] MEDS: LIDOCAINE 1% INJ 20 ML VIAL INJ ONE ×2 (18:40→18:55)
--- NOTE | 2022-03-24 18:44 | ED Upper Extremity ---
General Chief Complaint: Upper Extremity Stated Complaint: FALL,R WRIST PAIN Nursing Triage Note: Patient states that she tripped and fell. Patient put her hands out in front of her to catch her fall and hurt her right wrist. Patient's wrist is deformed. Patient states this happened just [employer]. History of Present Illness Date Seen by Provider: Mar 24, 2022 Time Seen by Provider: 18:30 Initial Comments 56-year-old female presents with a right wrist injury. Patient reports that she tripped and fell put her hand out family to try to catch her fall and broke her wrist. Patient reports that this happened just prior to arrival. Patient denies any other injury. Allergies and Home Medications Allergies Coded Allergies: Sulfa (Sulfonamide Antibiotics) (Verified Allergy, Unknown, 10/06/18) Uncoded Allergies: steroids (Allergy, Unknown, 10/06/18) pt states she became numb & had trouble breathing after steroid injection aspi (Adverse Reaction, Unknown, vomiting, stomach upset, although states that she still take, 10/06/18) pt reports GI upset when she takes it, but states that she still takes prn "heart palpitations" Patient Home Medication List Home Medication List Reviewed: Yes ALPRAZolam (Xanax Tablet) 0.25 Mg Tablet, 0.25 MG PO Q8H PRN for ANXIETY Prescribed by: JOSEPH AKINS on 10/19/18827 ALPRAZolam (ALPRAZolam) 0.25 Mg Tablet, 0.25 MG PO TID PRN for ANXIETY Prescribed by: GILSON JIMENES on 09/03/211856 Amoxicillin (Amoxicillin) 500 Mg Capsule, 500 MG PO TID Prescribed by: GILSON JIMENES on 09/03/211853 Apixaban (Eliquis) 2.5 Mg Tablet, 2.5 MG PO BID Prescribed by: JOSEPH AKINS on 10/19/18827 Aspirin (Aspirin) 81 Mg Tab.chew, 81 MG PO DAILY PRN for CHEST PAIN Prescribed by: JOSEPH AKINS on 10/19/18827 Diclofenac Sodium (Voltaren) 100 Gm Gel..gram., 0 GM TOP BID PRN for PAIN-MILD TO MODERATE Prescribed by: JOSEPH AKINS on 10/19/18827 Diphenhydramine HCl (Benadryl Allergy) 25 Mg Tablet, 25 MG PO BID PRN for ALLERGIES, (Reported) Entered as Reported by: ANJEL LEAVITT on 10/07/18 1334 Hydrocodone/Acetaminophen (Hydrocodone-Acetamin 5-325 mg) 5 Mg-325 Mg Tablet, 1 TAB PO Q6H PRN for PAIN-MODERATE (5-7) Prescribed by: IGOR YORK on 03/24/221930 Loratadine (Loratadine) 10 Mg Tablet, 10 MG PO DAILY Prescribed by: JOSEPH AKINS on 10/19/18827 Methocarbamol (Methocarbamol) 750 Mg Tablet, 750 MG PO TID Prescribed by: JOSEPH AKINS on 10/19/18827 Omeprazole (Omeprazole) 20 Mg Capsule.dr, 20 MG PO DAILY Prescribed by: GLISON JIMENES on 09/03/211853 Ondansetron (Ondansetron Odt) 4 Mg Tab.rapdis, 4 MG PO Q6H PRN for NAUSEA/VOMITING Prescribed by: JOSEPH AKINS on 10/19/18827 Oxycodone HCl/Acetaminophen (Percocet 5-325 mg Tablet) 1 Each Tablet, 1 TAB PO Q4H PRN for PAIN-MODERATE Prescribed by: JOSEPH AKINS on 10/19/18827 Pantoprazole Sodium (Pantoprazole Sodium) 40 Mg Tablet.dr, 40 MG PO DAILY Prescribed by: JOSEPH AKINS on 10/19/18827 Sennosides/Docusate Sodium (Senna-Time S Tablet) 1 Each Tablet, 1 EA PO BID Prescribed by: JOSEPH AKINS on 10/19/18827 Tramadol HCl (Tramadol HCl) 50 Mg Tablet, 50 MG PO Q6H Prescribed by: JUDI KENNEDY on 10/16/211916 [Guaifenesin/Codeine] 10 ML SYRP, 5 ML PO Q4H PRN for COUGH Prescribed by: JOSEPH AKINS on 10/19/18827 Review of Systems Constitutional: no symptoms reported EENTM: no symptoms reported Respiratory: no symptoms reported Cardiovascular: no symptoms reported Genitourinary: no symptoms reported Musculoskeletal: see HPI Skin: no symptoms reported Psychiatric/Neurological: No Symptoms Reported Past Hcecqwb-Dabjbk-Ubnmbg Hx Patient Social History Tobacco Use?: No Substance use?: No Alcohol Use?: No Pt feels they are or have been: No Seasonal Allergies Seasonal Allergies: Yes Past Medical History Orthopedic Respiratory: No Currently Using CPAP: No Currently Using BIPAP: No Cardiac: No Neurological: No Genitourinary: No Gastrointestinal: No Osteoporosis, Arthritis, Fractures Endocrine: No HEENT: No Cancer: No Psychosocial: No Integumentary: No Blood Disorders: No Physical Exam Vital Signs Vital Signs - First Documented 03/24/22 18:24 Temp 35.8 Pulse 108 Resp 14 B/P (MAP) 132/78 (96) Pulse Ox 98 O2 Delivery Room Air Capillary Refill : Less Than 3 Seconds Height, Weight, BMI Height: 5'2.00" Weight: 130lbs. 1.0oz. 58.474404gj; 19.00 BMI Method: General Appearance: WD/WN, no apparent distress Cardiovascular: normal peripheral pulses, regular rate, rhythm Shoulder: normal inspection Elbow/Forearm: normal inspection Wrist: Yes deformity, Yes pain, Yes swelling Neurologic/Psychiatric: alert, normal mood/affect, oriented x 3 Skin: normal color, warm/dry Progress/Results/Core Measures Results/Orders My Orders Orders - IGOR YORK DO Lidocaine 1% Inj 20 Ml (Xylocaine 1% Inj (03/24/22 18:30) Wrist 3 View Right (03/24/22 18:26) Lidocaine 1% Inj 50 Ml (Xylocaine 1% Inj (03/24/22 18:35) Bupivacaine 0.5% Injection (Sensorcaine (03/24/22 18:35) Ed Iv/Invasive Line Start (03/24/22 18:44) Fentanyl Inj (Sublimaze Injection) (03/24/22 18:49) Fentanyl Inj (Sublimaze Injection) (03/24/22 19:09) Fentanyl Inj (Sublimaze Injection) (03/24/22 19:11) Hydrocodone/Apap 5/325 Tablet (Lortab 5 (03/24/22 19:30) Ondansetron Oral Dissolve Tab (Zofran (03/24/22 19:45) Medications Given in ED Current Medications Medications Dose Ordered Sig/Shannan Route Start Time Stop Time Status Last Admin Dose Admin Acetaminophen/ Hydrocodone Bitart 1 ea ONCE ONCE PO 03/24/22 19:30 03/24/22 19:31 DC 03/24/22 19:49 1 EA Bupivacaine HCl 30 ml STK-MED ONCE .ROUTE 03/24/22 18:35 03/24/22 18:37 DC 03/24/22 18:40 30 ML Vital Signs/I&O 03/24/22 18:24 Temp 35.8 Pulse 108 Resp 14 B/P (MAP) 132/78 (96) Pulse Ox 98 O2 Delivery Room Air Blood Pressure Mean: 96 Progress Progress Note : Progress Note Patient with right intertrochanteric fracture. They are requesting transfer to [facility] to have surgery performed by Dr. Holguin. Called and discussed with Dr. Akins who also discussed with Dr. Holguin and accepted patient. Patient was transferred via EMS in stable condition. Diagnostic Imaging Diagonstic Imaging: Xray Plain Films/CT/US/NM/MRI: other Comments Date of Exam:03/24/22 WRIST 3 VIEW RIGHT INDICATION: Fall with trauma to the right wrist. Time of Exam: 6:39 PM 3 views of the right wrist were obtained. There is a comminuted impacted fracture of the distal radius. There is significant dorsal displacement of the distal radius fracture fragment. Displacement is by approximately the width of the shaft. The carpus maintains a normal alignment and relationship with the articular surface of the displaced distal radius. There is also dorsally displaced distal ulnar fracture. Carpus and metacarpals are intact. IMPRESSION: Displaced distal radius and ulnar fractures. Reviewed: Reviewed by Me, Reviewed/Discussed Departure Impression Primary Impression: Closed fracture distal radius and ulna Qualified Codes: S52.501A - Unspecified fracture of the lower end of right radius, initial encounter for closed fracture; S52.601A - Unspecified fracture of lower end of right ulna, initial encounter for closed fracture Disposition: 01 HOME, SELF-CARE Condition: Stable Departure-Patient Inst. Referrals: NO,LOCAL PHYSICIAN (PCP/Family) Primary Care Physician Patient Instructions: Colles' Fracture (DC) Add. Discharge Instructions: Please call [phone] asked for [facility] legal secretary receptionist for Dr. Haroon Patiño to arrange for an appointment time Please keep your right wrist above your heart All discharge instructions reviewed with patient and/or family. Voiced understanding. Scripts Hydrocodone/Acetaminophen (Hydrocodone-Acetamin 5-325 mg) 5 Mg-325 Mg Tablet 1 TAB PO Q6H PRN for PAIN-MODERATE (5-7), #15 TAB Prov: YORK,IGOR L DO 03/24/22 IGOR YORK DO Mar 24, 2022 18:44
[2022-03-24] MEDS ORDERED: fentaNYL INJ 100 MCG/2 ML AMP IVP STA ×2 (18:49→19:09)
--- NOTE | 2022-03-24 18:56 | Diagnostic Imaging Report ---
INDICATION: Fall with trauma to the right wrist. Time of Exam: 6:39 PM 3 views of the right wrist were obtained. There is a comminuted impacted fracture of the distal radius. There is significant dorsal displacement of the distal radius fracture fragment. Displacement is by approximately the width of the shaft. The carpus maintains a normal alignment and relationship with the articular surface of the displaced distal radius. There is also dorsally displaced distal ulnar fracture. Carpus and metacarpals are intact. IMPRESSION: Displaced distal radius and ulnar fractures. Dictated by: Dictated on workstation # [id number]
[2022-03-24] MEDS ORDERED: fentaNYL INJ 100 MCG/2 ML AMP ONE (19:11)
[2022-03-24] MEDS ORDERED: HYDROcodone/APAP 5 MG/325 MG (LORTAB) TAB PO ONE (19:30)
[2022-03-24] MEDS ORDERED: ACHD5005 PO (19:31)
[2022-03-24] MEDS ORDERED: ONDANSETRON 4 MG (ZOFRAN) ORAL DISSOLVE TAB PO STA (19:45)
== END 2022-03-24 19:50 | disposition home or self-care (01) ==
LOC: EDUNIT# 18:22 → ER FS 18:23
DX: S52.501A Unspecified fracture of the lower end of right radius, initial encounter for closed fracture (principal); S52.601A Unspecified fracture of lower end of right ulna, initial encounter for closed fracture; W01.0XXA Fall on same level from slipping, tripping and stumbling without subsequent striking against object, initial encounter
CPT/HCPCS: 29125; 73110

== ENCOUNTER 2022-04-02 21:57 | Emergency (ER) | payer OTHER ==
[~2022-04-02] VITALS: Ht 157 cm; Wt 48.9 kg
[~2022-04-02 21:57] MED LIST changes: +ACHD5005 PO
[2022-04-02] MEDS ORDERED: ALPRAZolam 0.5 MG (XANAX) TAB PO ONE (22:30)
--- NOTE | 2022-04-02 22:45 | ED General ---
General Chief Complaint: Upper Extremity Stated Complaint: PAIN,ANXIOUS Nursing Triage Note: Pt had surgery on right wrist in [place] today and reports and increase in pain and feeling anxious. Pt stated "I just want to make sure everything is ok. I am feeling a little better now but I just want to make sure." Pt swelling noted to right fingers and pt is able to move. Neuro is intact and cap refill is <3 seconds. Pt took a 10/325mg hydrocodone/APAP 10 minutes [employer]ET [employer]. Source of Information: Patient, Family Exam Limitations: No Limitations History of Present Illness Date Seen by Provider: Apr 02, 2022 Time Seen by Provider: 22:15 Initial Comments 56-year-old female patient states she had a fall 1 week ago with several area of right wrist fracture and had surgery today. Patient stated she felt pain in her wrist and then became worried about her surgery and is started to breathing fast and then developed chest pain with numbness of hands and dizziness. Patient stated she had [place] and her pain improved and her breathing became slower and chest pain resolved. Patient also concerned about the color of her right fingers after her surgery. Allergies and Home Medications Allergies Coded Allergies: Sulfa (Sulfonamide Antibiotics) (Verified Allergy, Unknown, 10/06/18) aspirin (Verified Allergy, Unknown, 04/02/22) tramadol (Verified Allergy, Unknown, 04/02/22) Uncoded Allergies: steroids (Allergy, Unknown, 10/06/18) pt states she became numb & had trouble breathing after steroid injection aspi (Adverse Reaction, Unknown, vomiting, stomach upset, although states that she still take, 10/06/18) pt reports GI upset when she takes it, but states that she still takes prn "heart palpitations" Patient Home Medication List Home Medication List Reviewed: Yes ALPRAZolam (Xanax Tablet) 0.25 Mg Tablet, 0.25 MG PO Q8H PRN for ANXIETY Prescribed by: JOSEPH AKINS on 10/19/18 0828 ALPRAZolam (ALPRAZolam) 0.25 Mg Tablet, 0.25 MG PO TID PRN for ANXIETY Prescribed by: GILSON JIMENES on 09/03/211856 Amoxicillin (Amoxicillin) 500 Mg Capsule, 500 MG PO TID Prescribed by: GILSON JIMENES on 09/03/211853 Apixaban (Eliquis) 2.5 Mg Tablet, 2.5 MG PO BID Prescribed by: JOSEPH AKINS on 10/19/18827 Aspirin (Aspirin) 81 Mg Tab.chew, 81 MG PO DAILY PRN for CHEST PAIN Prescribed by: JOSEPH AKINS on 10/19/18827 Diclofenac Sodium (Voltaren) 100 Gm Gel..gram., 0 GM TOP BID PRN for PAIN-MILD TO MODERATE Prescribed by: JOSEPH AKINS on 10/19/18827 Diphenhydramine HCl (Benadryl Allergy) 25 Mg Tablet, 25 MG PO BID PRN for ALLERGIES, (Reported) Entered as Reported by: ANJEL LEAVITT on 10/07/18 133 Hydrocodone/Acetaminophen (Hydrocodone-Acetamin 5-325 mg) 5 Mg-325 Mg Tablet, 1 TAB PO Q6H PRN for PAIN-MODERATE (5-7) Prescribed by: IGOR YORK on 03/24/22 193 Loratadine (Loratadine) 10 Mg Tablet, 10 MG PO DAILY Prescribed by: JOSEPH AKINS on 10/19/18827 Methocarbamol (Methocarbamol) 750 Mg Tablet, 750 MG PO TID Prescribed by: JOSEPH AKINS on 10/19/18827 Omeprazole (Omeprazole) 20 Mg Capsule.dr, 20 MG PO DAILY Prescribed by: GILSON JIMENES on 09/03/21 185 Ondansetron (Ondansetron Odt) 4 Mg Tab.rapdis, 4 MG PO Q6H PRN for NAUSEA/VOMITING Prescribed by: JOSEPH AKINS on 10/19/18827 Oxycodone HCl/Acetaminophen (Percocet 5-325 mg Tablet) 1 Each Tablet, 1 TAB PO Q4H PRN for PAIN-MODERATE Prescribed by: JOSEPH AKINS on 10/19/18827 Pantoprazole Sodium (Pantoprazole Sodium) 40 Mg Tablet.dr, 40 MG PO DAILY Prescribed by: JOSEPH AKINS on 10/19/18827 Sennosides/Docusate Sodium (Senna-Time S Tablet) 1 Each Tablet, 1 EA PO BID Prescribed by: JOSEPH AKINS on 10/19/18827 Tramadol HCl (Tramadol HCl) 50 Mg Tablet, 50 MG PO Q6H Prescribed by: JUDI KENNEDY on 10/16/211916 [Guaifenesin/Codeine] 10 ML SYRP, 5 ML PO Q4H PRN for COUGH Prescribed by: JOSEPH AKINS on 10/19/18 0828 Review of Systems Review of Systems Constitutional: see HPI EENTM: no symptoms reported Respiratory: see HPI Cardiovascular: see HPI Gastrointestinal: no symptoms reported Genitourinary: no symptoms reported Musculoskeletal: see HPI Skin: no symptoms reported Psychiatric/Neurological: See HPI Immunological/Allergic: no symptoms reported All Other Systems Reviewed Negative Unless Noted: Yes Past Jophtgz-Fqvyqr-Qrtafr Hx Patient Social History Tobacco Use?: No Use of E-Cig and/or Vaping dev: No Substance use?: No Alcohol Use?: No Pt feels they are or have been: No Immunizations Up To Date First/Initial COVID19 Vaccinat: denies Seasonal Allergies Seasonal Allergies: Yes Past Medical History Orthopedic Respiratory: No Currently Using CPAP: No Currently Using BIPAP: No Cardiac: No Neurological: No Genitourinary: No Gastrointestinal: No Osteoporosis, Arthritis, Fractures Endocrine: No HEENT: No Cancer: No Psychosocial: No Integumentary: No Blood Disorders: No Physical Exam Vital Signs Vital Signs - First Documented 04/02/22 22:00 Temp 37.3 Pulse 105 Resp 17 B/P (MAP) 140/81 (100) Pulse Ox 96 O2 Delivery Room Air Capillary Refill : Less Than 3 Seconds Height, Weight, BMI Height: 5'2.00" Weight: 130lbs. 1.0oz. 58.168874aq; 19.00 BMI Method: General Appearance: Anxious, Thin Eyes: Bilateral Eye Normal Inspection HEENT: PERRL/EOMI Neck: Full Range of Motion, Normal Inspection Respiratory: Chest Non Tender, Lungs Clear, Normal Breath Sounds Cardiovascular: Regular Rate, Rhythm, No Edema, No Gallop Back: Normal Inspection Extremity: Normal Capillary Refill, Other (Right upper extremity in surgical dressing and sling, good cap refill of fingers, remaining of surgical cleaning materails on fingers) Neurologic/Psychiatric: Alert, Oriented x3, No Motor/Sensory Deficits Skin: Normal Color, Warm/Dry Progress/Results/Core Measures Suspected Sepsis SIRS Temperature: Pulse: 105 Respiratory Rate: 17 Blood Pressure 140 /81 Mean: 100 Results/Orders My Orders Orders - BOGDAN OSHEA MD Alprazolam Tablet (Xanax Tablet) (04/02/22 22:30) Medications Given in ED Current Medications Medications Dose Ordered Sig/Shannan Route Start Time Stop Time Status Last Admin Dose Admin Alprazolam 0.5 mg ONCE ONCE PO 04/02/22 22:30 04/02/22 22:31 DC 04/02/22 22:33 0.5 MG Vital Signs/I&O 04/02/22 22:00 Temp 37.3 Pulse 105 Resp 17 B/P (MAP) 140/81 (100) Pulse Ox 96 O2 Delivery Room Air Capillary Refill : Less Than 3 Seconds Blood Pressure Mean: 100 Progress Note : Progress Note Evaluation of patient in ER showed 56-year-old female patient who had right upper extremity orthopedic surgery today and was concerned about pain and color of her fingers, that was stained with surgical cleaning material with good cap refill. Patient had 1 episode of anxiety attack and hyperventilation with short episode of chest pain that resolved spontaneously. Patient is currently on Eliquis. Patient treated with Xanax 0.5 mg orally and advised to follow-up with her primary care physician for treatment of anxiety. Departure Impression Primary Impression: Hyperventilation Additional Impression: Panic attack Disposition: 01 HOME, SELF-CARE Condition: Improved Departure-Patient Inst. Decision time for Depature: 22:44 Referrals: NO,LOCAL PHYSICIAN (PCP/Family) Primary Care Physician Patient Instructions: Hyperventilation, Panic Attack ED Add. Discharge Instructions: Continue current medication Follow-up with your orthopedic physician as scheduled Return to ER or follow-up with your primary care physician as needed. All discharge instructions reviewed with patient and/or family. Voiced understanding. BOGDAN OSHEA MD Apr 02, 2022 22:45
[2022-04-02 22:50] VITALS: BP 140/81
== END 2022-04-02 22:50 | disposition home or self-care (01) ==
LOC: EDUNIT# 21:57 → ER FS 22:00
DX: F41.0 Panic disorder [episodic paroxysmal anxiety] (principal); R06.4 Hyperventilation; Z79.01 Long term (current) use of anticoagulants; Z98.890 Other specified postprocedural states; Z28.310 Unvaccinated for COVID-19
CPT/HCPCS: 99283

== ENCOUNTER → 2022-07-07 | Outpatient (CLI) | payer OTHER ==
--- NOTE | 2022-07-07 19:48 | Diagnostic Imaging Report ---
INDICATION: Fracture, pain. FINDINGS: 2 view wrist shows a well aligned distal radial fracture post ORIF. Avulsion fractures off the ulnar styloid unchanged. No adverse interval development. IMPRESSION: Marked improvement in bony alignment postop with no adverse development. Dictated by: Dictated on workstation # [id number]
== END ==
LOC: RAD FS 13:11
PROVIDERS: ATTEND Nurse Practitioner
DX: S52.591A Other fractures of lower end of right radius, initial encounter for closed fracture (principal); Z98.890 Other specified postprocedural states; X58.XXXA Exposure to other specified factors, initial encounter
CPT/HCPCS: 73100